=== PATIENT | male | born 1995 | race Caucasian/White ===

== ENCOUNTER 2022-04-04 21:30 | Emergency (ER) | payer SELFPAY ==
[2022-04-04] VITALS (12 sets, daily range): BP systolic 115–140; BP diastolic 71–95; PULSE 60–97; RESP 8–20; TEMP 36.7; O2SAT 95–100
--- NOTE | ~2022-04-04 | XR_ITS ---
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 RESULT: Lines, tubes, and devices: None. Lungs and pleura: Clear. Cardiomediastinal silhouette: Stable. Other: No acute osseous or upper abdominal finding. IMPRESSION: No acute cardiopulmonary process. Reviewed, dictated and finalized at location K. RIALS DEVELOPMENT ENGINEER
--- NOTE | 2022-04-04 21:37 | ECG_ITS ---
Measurements Intervals [place] Rate: 93 P: 69 OK: 153 QRS: 73 QRSD: 90 T: 46 QT: 361 QTc: 451 Interpretive Statements SINUS RHYTHM NO PREVIOUS ECG AVAILABLE FOR COMPARISON Electronically Signed On 04-05-2022 20:06:36 LEAN ENGINEER by Trisha Reyes M.D.
[2022-04-04] MEDS: NITROGLYCERIN SL 0.4 MG TABLET SUBLINGUAL ×2 (22:00→22:15)
[2022-04-04] MEDS: ASPIRIN 81 MG CHEWABLE TABLET 324 MG PO (22:01)
[2022-04-04 22:04] LABS: Basophils Absolute Auto 0.06 K/mm3 (0.00-0.10); Basophils Percent Auto 0.3 % (0.0-1.0); Eosinophils Percent Auto 0.6 % (1.0-6.0); Hematocrit 42.3 % (40.0-54.0); Hemoglobin 14.5 g/dL (14.0-18.0); Immature Granulocyte Absolute 0.07 K/mm3 (0.00-0.00); Immature Granulocyte Percent A 0.4 % (0.0-0.0); Lymphocytes Absolute Auto 2.63 K/mm3 (1.10-4.50); Lymphocytes Percent Auto 14.8 % (18.0-42.0); Mean Corpuscular HGB Conc 34.3 g/dL (32.0-36.0); Mean Corpuscular Hemoglobin 30.4 pg (27.0-31.0); Mean Corpuscular Volume 88.7 fL (78.0-102.0); Mean Platelet Volume 10.6 fl (8.7-11.0); Monocytes Absolute Auto 1.17 K/mm3 (0.10-0.90); Monocytes Percent Auto 6.6 % (2.0-11.0); Neutrophils Absolute Auto 13.8 K/mm3 (1.7-7.2); Neutrophils Percent Auto 77.3 % (50.0-70.0); Platelet Count Result 274 K/mm3 (150-420); Red Blood Count 4.77 M/mm3 (4.70-6.10); Red Cell Distribution Width 12.1 % (11.6-14.4); White Blood Count 17.8 K/mm3 (4.8-10.8)
--- NOTE | 2022-04-04 22:26 | PC.NURSE ---
When this RN attempted to start an IV the pt became very tense and began to bear down. the pt's heart rate dropped to 39 briefly and then came back up into the 70s. pt is Ox4 awake and talking. the pt denies any other complaints besides chest tightness.
[2022-04-04 22:28] LABS: Alanine Aminotransferase 30 U/L (16-63); Albumin Level 4.3 g/dL (3.4-5.0); Alkaline Phosphatase 68 U/L (46-116); Anion Gap 7 mmol/L (8-16); Aspartate Amino Transferase 17 U/L (15-37); Bilirubin,Total 1.1 mg/dL (0.00-1.00); Blood Urea Nitrogen 15 mg/dL (7-18); Carbon Dioxide 28 mmol/L (21-32); Chloride 103 mmol/L (98-108); Estimated CRCL calculation 130 ml/min; Estimated Glomerular Filt Rate > 60; Glucose 106 mg/dL (70-99); Lipase 81 U/L (73-393); NT Pro B Type Natriuretic Pept 27 pg/mL (0-125); Osmolality Calculated 286 mOsm/kg (285-295); Potassium 3.6 mmol/L (3.5-5.1); Sodium 138 mmol/L (136-145); Total Protein 7.7 g/dL (6.4-8.2); Troponin I 5.5 ng/L (0.00-60.4)
[2022-04-04 22:37] LABS: Add Urine Microscopic? NO; Appearance Urine Clear (Clear); Bilirubin Urine Negative (Negative); Blood Urine Negative (Negative); Color Urine Light Yellow (Yellow); Glucose Urine UA Negative (Negative); Ketones Urine Negative (Negative); Leukocyte Esterase Ur Negative LEU/UL (Negative); Nitrate Urine Negative (Negative); Protein Urine Negative (Negative); Urobilinogen Urine 0.2 mg/dL (0.2-1.0)
[2022-04-04 22:44] LABS: Amphetamine Screen Urine Negative (Negative); Barbiturate Screen Urine Negative (Negative); Benzodiazepines Screen Urine Negative (Negative); Cannabinoid Screen Urine Positive (Negative); Cocaine Screen Urine Negative (Negative); Methadone Screen Urine Negative (Negative); Opiate Screen Urine Negative (Negative); Phencyclidine Screen Urine Negative (Negative)
[2022-04-04] MEDS: IPRATROPIUM 0.5 MG/ALBUTEROL SULFATE 2.5 MG AMPUL.NEB 3 ML INHALATION (22:55)
[2022-04-04 23:05] LABS: Base Excess ABG 1.8 mmol/L (0-2); Oxygen Content ABG 21.1 %vol (16.0-22.0); Oxygen Saturation ABG 98.6 % (95-97); Oxyhemoglobin 97.3 % (94-100); PO2 ABG 133.6 mmHg (80-90); Total Hemoglobin 15.3 g/dL (12.0-18.0); pH ABG 7.51 (7.35-7.45)
[2022-04-04 23:07] LABS: Modified Allen's Test Pass; Site Drawn RIGHT BRACHIAL
[2022-04-04 23:08] LABS: Device OTHER DEVICE
[2022-04-05] VITALS (15 sets, daily range): BP systolic 123; BP diastolic 60; PULSE 55–75; RESP 5–21; O2SAT 95–97
[2022-04-05] MEDS: SODIUM CHLORIDE 0.9% IV 1,000 ML 999 ML IV CONT (01:25)
[2022-04-05 01:45] LABS: Troponin I 4.5 ng/L (0.00-60.4)
--- NOTE | 2022-04-05 02:50 | PC.NURSE ---
notified that lab results are back.
--- NOTE | 2022-04-05 03:38 | ED.CHESTPAIN ---
HPI - Chest Pain General Chief Complaint: Chest Pain Stated Complaint: Anxiety Time Seen by Provider: 04/04/22 21:35 Source: patient and RN notes reviewed Mode of arrival: ambulatory Limitations: no limitations History of Present Illness MD complaint: chest pain Onset (ago): hour(s) (6) Timing of current episode: constant Onset: during exertion Pain location: substernal Pain radiation: none Severity: mild Pain scale (0-10): 5 Quality: aching and dull Relieving factors: nothing Exacerbating factors: inspiration Associated symptoms: dyspnea and cough Treatment prior to arrival: none Related Data Allergies Allergy/AdvReac Type Severity Reaction Status Date / Time No Known Allergies Allergy Verified 01/22/17 21:09 Review of Systems Review of Systems: All systems reviewed & are unremarkable except as noted in HPI and below Constitutional: Constitutional: Reports no additional constitutional complaints Eyes: Eyes: Reports no additional eye complaints ENT: Reports system reviewed and no additional complaints, except as documented Cardiovascular: Cardiovascular: Reports no additional cardiovascular complaints Respiratory: Respiratory: Reports no additional respiratory complaints Gastrointestinal: Gastrointestinal: Reports no additional gastrointestinal complaints Musculoskeletal: Musculoskeletal: Reports no additional musculoskeletal complaints Integumentary/Breasts: Skin/Breast: Reports system reviewed and no additional complaints, except as docu Neurologic: Reports system reviewed and no additional complaints, except as documented Psychiatric: Psychiatric: Reports no additional psychiatric complaints Endocrine: Endocrine: Reports no additional endocrine complaints Hematologic/Lymphatic: Hematologic/Lymphatic: Reports no additional hematologic/lymphatic complaints Allergic/Immunologic: Allergic/Immunologic: Reports no additional allergic/immunologic complaints PMFSH Past Medical History Medical History Atypical chest pain Bronchitis Exam Const: General: no acute distress and well nourished Nutritional Appearance: well nourished Orientation/consciousness: patient oriented x3 Limitations: no limitations HENMT: Head: normal to inspection Ears: external ears normal, TM's normal bilaterally and EAC's normal Face/Nose/Sinus: Normal external nose present, Normal nares present, normal facial exam and sinuses nontender Face and sinus: normal facial exam and sinuses nontender Mouth: Yes Normal oral and palatal mucosa present and Yes moist mucous membranes Teeth and gingiva: dentition normal Throat: posterior oropharynx normal Eyes: Conjunctivae: conjunctivae normal Pupils: Equal, round and reactive pupils present EOM: EOMs intact bilaterally Neck: Neck: normal visual inspection, no lymphadenopathy and no meningeal signs Chest: Chest palpation & inspection: normal inspection of the chest Resp: Effort & Inspection: normal respiratory effort Auscultation: rhonchi Cardio: Rate: regular rate Rhythm: regular rhythm GI: GI Palp: Yes Soft to palpation and No Tenderness to palpation present (GI) Auscultation: normal bowel sounds : General: Yes bladder normal to palpation and Yes no CVA tenderness Back/Spine/Pelvis: Back: no CVA tenderness Skin: General skin exam: normal color Rashes: no rashes Wounds: no wounds Neuro: General: patient oriented x3, moves all extremities, no meningeal signs, no focal motor deficits and CN's II-XI intact bilaterally Cranial nerves: Yes Equal, round and reactive pupils present and Yes Nystagmus not present Speech: normal speech Gait exam (Neuro): Normal gait present Extrem: General: normal to inspection and no pedal edema Psych: Mental Status: mental status grossly normal Affect: normal affect Attitude: cooperative Course Course Emergency Course: stable, less painful Reevaluation(s) Reevaluation #1:
--- NOTE | 2022-04-09 23:33 | PC.NURSE ---
Ceftriaxone stopped 04/05/22 0130 Fluids stopped 04/05/22 0200
== END 2022-04-05 03:57 | disposition home or self-care (01) ==
PROVIDERS: Emergency Provider Emergency Medicine
DX: J40 Bronchitis, not specified as acute or chronic (principal); R07.89 Other chest pain
CPT/HCPCS: 36415; 36600; 71045; 80053; 80307; 81003; 82805; 83690; 83880; 84484; 85025; 93005; 94640; 96361; 96374; 99284; A9270; J0696; J2405; J7030

== ENCOUNTER 2022-04-14 14:44 | Emergency (ER) | payer OTHER, SELFPAY ==
--- NOTE | ~2022-04-14 | CT_ITS ---
EXAMINATION: CT abdomen pelvis w con DATE: 04/14/2022 17:39 INDICATION: abdominal pain with vomiting TECHNIQUE: Computed tomography (CT) of the abdomen and pelvis was performed with 100 mL Omnipaque-350 intravenous contrast. Automated exposure control and iterative reconstruction technique were employe d. The dose-length product was 483.11 mGy-cm. COMPARISON: 01/22/2017. FINDINGS: Lower thorax: Small hiatal hernia. Liver: Normal. Biliary/Gallbladder: Gallbladder is normal. No bile duct dilation. Pancreas: No mass or duct dilation. Spleen: Normal. Adrenals:No mass. Kidneys: No mass, stone, or hydronephrosis. GI tract: No small or large bowel dilation. Normal appendix. Mesentery/Peritoneum: No ascites, mass, or free air. Retroperitoneum: No mass. Pelvis: Pelvic organs are within normal limits. Soft Tissues: Soft tissues and body wall unremarkable. Bones: No acute osseous finding. IMPRESSION: No acute abdominopelvic process detected Reviewed, dictated and finalized at location K. AL SERVICE LIAISON
[2022-04-14 14:55] VITALS: BP 143/97; PULSE 73; RESP 18; TEMP 36.6; O2SAT 100
[2022-04-14 17:14] LABS: Basophils Absolute Auto 0.1 K/mm3 (0.0-0.1); Basophils Percent Auto 0.4 % (0.2-1.2); Eosinophils Percent Auto 0.1 % (0-4.4); Hematocrit 45.8 % (42.0-52.0); Hemoglobin 16.1 g/dL (14.0-18.0); Immature Granulocyte Absolute 0.14 K/mm3 (0.00-0.031); Immature Granulocyte Percent A 0.6 % (0-0.5); Lymphocytes Absolute Auto 1.13 K/mm3 (0.9-3.2); Lymphocytes Percent Auto 5.2 % (18.3-44.2); Mean Corpuscular HGB Conc 35.2 g/dl (32-36); Mean Corpuscular Hemoglobin 30.8 pg (26-34); Mean Corpuscular Volume 87.7 fl (80-100); Mean Platelet Volume 10.5 fl (7.4-10.4); Monocytes Absolute Auto 1.2 K/mm3 (0.1-0.6); Monocytes Percent Auto 5.5 % (2.6-8.5); Neutrophils Absolute Auto 19.2 K/mm3 (1.3-6.7); Neutrophils Percent Auto 88.2 % (45.5-73.1); Platelet Count Result 354 k/mm3 (150-375); Red Blood Count 5.22 M/mm3 (4.6-6.20); Red Cell Distribution Width 11.9 % (11.5-14.5); White Blood Count 21.8 K/mm3 (4.5-10.0)
[2022-04-14 17:23] LABS: Alanine Aminotransferase 32 U/L (6-50); Albumin Level 5.2 g/dL (3.5-5.1); Alkaline Phosphatase 84 U/L (38-126); Anion Gap 13 mmol/L (8-16); Aspartate Amino Transferase 31 U/L (17-59); Bilirubin,Total 1.5 mg/dL (0.2-1.3); Blood Urea Nitrogen 23 mg/dL (9-20); Calcium 9.8 mg/dL (8.4-10.2); Carbon Dioxide 24 mmol/L (22-30); Chloride 105 mmol/L (98-107); Estimated CRCL calculation 136 ml/min; Estimated Glomerular Filt Rate > 60; Glucose 153 mg/dL (65-110); Lipase 49 U/L (23-300); Potassium 3.8 mmol/L (3.4-5.0); Sodium 142 mmol/L (137-145)
--- NOTE | 2022-04-14 17:23 | ED.ABDPAIN ---
HPI - Abdominal Pain General Chief Complaint: Abdominal Pain <Kay Flores MD - Last Filed: 04/18/22 12:46> Stated Complaint: stomach pain <Kay Flores MD - Last Filed: 04/18/22 12:46> Time Seen by Provider: 04/14/22 16:47 <Kay Flores MD - Last Filed: 04/18/22 12:46> History of Present Illness HPI narrative: Patient is a 26-year-old male with a history of asthma presenting with abdominal pain. Patient states that he had lunch and then he developed severe abdominal pain associated with vomiting. States that this is the worst pain he has ever had. He was actually here in the hospital with his when the pain started. He denies fevers, headache, chest pain, cough, shortness of breath, diarrhea, constipation, dysuria, hematuria. <Kay Flores MD - Last Filed: 04/18/22 12:46> Related Data Allergies/Adverse Reactions: Allergies Allergy/AdvReac Type Severity Reaction Status Date / Time No Known Allergies Allergy Verified 04/16/22 11:24 <Kay Flores MD - Last Filed: 04/18/22 12:46> Review of Systems Review of Systems: All systems reviewed & are unremarkable except as noted in HPI and below <Kay Flores MD - Last Filed: 04/18/22 12:46> PMFSH Past Medical History Medical History: Medical History Atypical chest pain Bronchitis <Kay Flores MD - Last Filed: 04/18/22 12:46> Exam Narrative: GENERAL: Well-appearing, well-nourished, and in no acute distress. HEAD: Normocephalic, atraumatic. EYES: PERRLA and EOMI. ENT: Nares clear, no rhinorrhea or epistaxis. Mucous membranes moist. NECK: Supple. CHEST: Clear to auscultation. No respiratory distress. HEART: Regular rate and rhythm. No murmur heard. Normal peripheral pulses. ABDOMEN: Soft, diffusely tender to palpation, nondistended EXTREMITIES: Normal range of motion. No edema. SKIN: Warm, dry, no rash. NEURO: No focal deficits. Alert and oriented x3. PSYCH: Normal mood and affect. <Kay Flores MD - Last Filed: 04/18/22 12:46> Course Reevaluation(s) Reevaluation #1: Patient is tolerating p.o. and does feel improved. At time of signout the UA was pending. Patient did have positive ketones was treated with IV fluids. Patient is tolerating p.o. UA does show red blood cells with nitrate and leukoesterase negative. Urine culture was ordered. Patient was encouraged of close follow-up with his primary care physician. <Dallas Carey MD - Last Filed: 04/16/22 04:04> Vital Signs Vital signs: Vital Signs Temperature 97.8 F 04/14/22 14:55 Pulse Rate 73 04/14/22 14:55 Respiratory Rate 18 04/14/22 14:55 Blood Pressure 143/97 H 04/14/22 14:55 Pulse Oximetry 100 04/14/22 14:55 Temperature 97.8 F 04/14/22 14:55 Pulse Rate 94 04/14/22 22:45 Respiratory Rate 16 04/14/22 22:45 Blood Pressure 121/71 04/14/22 22:45 Pulse Oximetry 100 04/14/22 22:45 <Kay Flores MD - Last Filed: 04/18/22 12:46> Vital Signs Temperature 97.8 F 04/14/22 14:55 Pulse Rate 73 04/14/22 14:55 Respiratory Rate 18 04/14/22 14:55 Blood Pressure 143/97 H 04/14/22 14:55 Pulse Oximetry 100 04/14/22 14:55 Temperature 97.8 F 04/14/22 14:55 Pulse Rate 94 04/14/22 22:45 Respiratory Rate 16 04/14/22 22:45 Blood Pressure 121/71 04/14/22 22:45 Pulse Oximetry 100 04/14/22 22:45 <Dallas Carey MD - Last Filed: 04/16/22 04:04> MDM - Abdominal Pain MDM Narrative Medical decision making narrative: Patient is a 26-year-old male presenting with abdominal pain and vomiting. Patient is hypertensive, otherwise vitals are within normal limits. <Kay Flores MD - Last Filed: 04/18/22 12:46> Lab Data Result diagrams: 04/14/22 16:58 04/14/22 16:58 <Kay Flores MD - Last Filed: 04/18/22 12:46> Labs:
[2022-04-14] MEDS: MORPHINE SULFATE (*CRX) 4 MG/ML INJ IV PUSH (17:24)
[2022-04-14] MEDS: SODIUM CHLORIDE 0.9% IV 1,000 ML 999 ML IV CONT (17:25)
[2022-04-14] MEDS: ONDANSETRON INJ 4 MG/2 ML VIAL IV PUSH (17:25)
[2022-04-14 18:53] VITALS: BP 135/91; PULSE 61; RESP 15; O2SAT 100
[2022-04-14] MEDS: HALOPERIDOL LACTATE 5 MG/ML VIAL IM (18:53)
[2022-04-14 19:34] LABS: Add Urine Microscopic? YES; Appearance Urine Clear (Clear); Bilirubin Urine Negative (Negative); Blood Urine Negative (Negative); Color Urine Light Yellow (Yellow); Glucose Urine UA Negative (Negative); Ketones Urine 3+ mg/dL (Negative); Leukocyte Esterase Ur Negative LEU/UL (Negative); Nitrate Urine Negative (Negative); Protein Urine Negative (Negative); pH Urine 8.5 (5.0-9.0)
[2022-04-14 19:44] LABS: Bacteria Urine 1+ /hpf; Mucus Urine Rare /lpf; Squamous Epithelial Cell Urine Rare /hpf (Few)
[2022-04-14 22:40] VITALS: BP 121/71; PULSE 94; RESP 16; O2SAT 100
[2022-04-14 22:45] VITALS: BP 121/71; PULSE 94; RESP 16; O2SAT 100
== END 2022-04-14 22:45 | disposition home or self-care (01) ==
PROVIDERS: Emergency Provider Emergency Medicine
DX: R11.2 Nausea with vomiting, unspecified (principal); R10.9 Unspecified abdominal pain
CPT/HCPCS: 36415; 74177; 80053; 81001; 83690; 85025; 87086; 96361; 96372; 96374; 96375; 99284; J1630; J2270; J2405; J7030; Q9967

== ENCOUNTER 2022-04-16 11:12 | Emergency (ER) | payer OTHER, SELFPAY ==
[2022-04-16 11:15] VITALS: BP 154/103; PULSE 79; RESP 20; TEMP 36.6; O2SAT 100
--- NOTE | 2022-04-16 11:29 | ED.ABDPAIN ---
HPI - Abdominal Pain General Chief Complaint: Abdominal Pain Stated Complaint: severe stomach pain Time Seen by Provider: 04/16/22 11:14 Source: patient Mode of arrival: ambulatory Limitations: no limitations History of Present Illness HPI narrative: Patient is a 26-year-old white male seen 2 days ago at [facility] for nausea vomiting and abdominal pain Off and on for the last 3 days. Today he presents complaining of the same symptoms with pain 8/10 in severity.. Said yesterday he was better and okay and then his symptoms started again this morning. At [place] he was diagnosed with nausea and vomiting given a prescription of Zofran which she did not fill and had a CT there that was normal. Said his delivered baby boy April 13 and that is why he did go and get his prescription filled because she had not been discharge from the hospital yet. She still in the hospital now. He did go back to [place] because it takes too long it takes 3 hours. patient stated year ago he had similar symptoms and they diagnosed him as having colitis. Denies any problems voiding he had a normal bowel movement this morning. He said he has thrown up green liquid this morning. Last ate yesterday. He says his pain is all over his belly but hurts no where else on his body. Denies any fever, cough, shortness of breath, melena, bleeding or bruising, or other symptoms. MD elicited complaint: abdominal pain Pertinent past history: constipation, diverticulitis, gastritis, gastrointestinal bleeding, kidney stones and myocardial infarction Pain Consistency: constant Location: diffuse Severity: severe Quality: stabbing Exacerbating factors: nothing Relieving factors: nothing Associated symptoms: nausea and vomiting Related Data Allergies Allergy/AdvReac Type Severity Reaction Status Date / Time No Known Allergies Allergy Verified 04/16/22 11:24 Review of Systems Review of Systems: All systems reviewed & are unremarkable except as noted in HPI and below Constitutional: Constitutional: Denies chills, Denies fatigue, Denies fever(s) and Denies weakness Eyes: Eyes: Reports no additional eye complaints ENT: Reports system reviewed and no additional complaints, except as documented Cardiovascular: Cardiovascular: Denies chest pain Respiratory: Respiratory: Denies chest congestion, Denies cough and Denies dyspnea Gastrointestinal: Gastrointestinal: Reports as per HPI, Reports no additional gastrointestinal complaints, Denies bloating, Denies constipation, Denies heartburn, Denies diarrhea, Reports nausea and Reports vomiting Genitourinary: Genitourinary: Reports no additional male genitourinary complaints, Denies dysuria, Denies testicular pain and Denies urinary frequency Musculoskeletal: Musculoskeletal: Reports no additional musculoskeletal complaints, Denies back pain, Denies myalgias and Denies muscle cramps Integumentary/Breasts: Skin/Breast: Reports system reviewed and no additional complaints, except as docu and Denies rash Neurologic: Reports system reviewed and no additional complaints, except as documented Psychiatric: Psychiatric: Reports no additional psychiatric complaints Endocrine: Endocrine: Reports no additional endocrine complaints Hematologic/Lymphatic: Hematologic/Lymphatic: Reports no additional hematologic/lymphatic complaints Allergic/Immunologic: Allergic/Immunologic: Reports no additional allergic/immunologic complaints PMFSH Past Medical History Medical History Atypical chest pain Bronchitis Comments Currently in the hospital just had a baby April 13 a little boy at [facility] which is where the patient went to the emergency department 2 days ago. Exam Const: General: healthy appearing, alert and ill appearing ( Moaning thin tall white male spitting up spit an emesis container.) Nutritional Appearance: wel
[2022-04-16] MEDS: SODIUM CHLORIDE 0.9% IV 1,000 ML 999 ML IV CONT ×2 (11:49→13:03)
[2022-04-16] MEDS: PANTOPRAZOLE SODIUM IV 40 MG VIAL 80 MG IV PUSH (11:51)
[2022-04-16] MEDS: ONDANSETRON INJ 4 MG/2 ML VIAL IV PUSH (11:52)
[2022-04-16] MEDS: KETOROLAC 30 MG/ML VIAL (*BKC) IV PUSH (11:53)
[2022-04-16 11:59] LABS: Basophils Absolute Auto 0.05 K/mm3 (0.00-0.10); Basophils Percent Auto 0.4 % (0.0-1.0); Eosinophils Absolute Auto 0.06 K/mm3 (0.02-0.50); Eosinophils Percent Auto 0.5 % (1.0-6.0); Hemoglobin 15.4 g/dL (14.0-18.0); Immature Granulocyte Absolute 0.04 K/mm3 (0.00-0.00); Immature Granulocyte Percent A 0.3 % (0.0-0.0); Lymphocytes Absolute Auto 0.76 K/mm3 (1.10-4.50); Mean Corpuscular Hemoglobin 30.8 pg (27.0-31.0); Mean Platelet Volume 10.3 fl (8.7-11.0); Monocytes Absolute Auto 0.47 K/mm3 (0.10-0.90); Monocytes Percent Auto 3.7 % (2.0-11.0); Neutrophils Absolute Auto 11.3 K/mm3 (1.7-7.2); Neutrophils Percent Auto 89.1 % (50.0-70.0); Platelet Count Result 291 K/mm3 (150-420); Red Cell Distribution Width 11.8 % (11.6-14.4); White Blood Count 12.7 K/mm3 (4.8-10.8)
[2022-04-16 12:15] LABS: Alanine Aminotransferase 30 U/L (16-63); Albumin Level 4.9 g/dL (3.4-5.0); Alkaline Phosphatase 71 U/L (46-116); Anion Gap 12 mmol/L (8-16); Aspartate Amino Transferase 21 U/L (15-37); Bilirubin,Total 1.3 mg/dL (0.00-1.00); Blood Urea Nitrogen 16 mg/dL (7-18); Calcium 9.5 mg/dL (8.5-10.1); Carbon Dioxide 27 mmol/L (21-32); Chloride 101 mmol/L (98-108); Estimated CRCL calculation 94 ml/min; Estimated Glomerular Filt Rate > 60; Glucose 131 mg/dL (70-99); Lipase 20 U/L (16-77); Osmolality Calculated 293 mOsm/kg (285-295); Potassium 3.4 mmol/L (3.5-5.1); Sodium 140 mmol/L (136-145); Total Protein 8.4 g/dL (6.4-8.2)
[2022-04-16 12:33] LABS: Lactic Acid Reflex 1.9 mmol/L (0.4-2.0)
[2022-04-16 12:52] VITALS: BP 131/84; PULSE 70; RESP 16; TEMP 36.6; O2SAT 99
[2022-04-16] MEDS: POTASSIUM BICARBONATE 25 MEQ TABEF 50 MEQ PO (13:04)
[2022-04-16 13:41] LABS: Add Urine Microscopic? YES; Appearance Urine Clear (Clear); Bilirubin Urine Negative (Negative); Blood Urine Trace-Intact (Negative); Color Urine Yellow (Yellow); Glucose Urine UA Negative (Negative); Ketones Urine 3+ (Negative); Leukocyte Esterase Ur Negative LEU/UL (Negative); Nitrate Urine Negative (Negative); Protein Urine Negative (Negative); Specific Grav Ur 1.025 (1.010-1.020)
[2022-04-16 13:45] LABS: Bacteria Urine None seen /hpf; RBC Urine None seen /hpf (0-2); WBC Urine None seen /hpf (0-3)
[2022-04-16 13:53] VITALS: BP 103/70; PULSE 88; TEMP 36.9; O2SAT 100
--- NOTE | 2022-04-16 14:17 | PC.NURSE ---
hard copy prescriptions provided to pt. pt verbalized understanding of discharge instruction. signature page left with pt.
== END 2022-04-16 14:17 | disposition home or self-care (01) ==
PROVIDERS: Emergency Provider Emergency Medicine
DX: R11.2 Nausea with vomiting, unspecified (principal); R10.9 Unspecified abdominal pain
CPT/HCPCS: 36415; 80053; 81001; 83605; 83690; 85025; 96361; 96374; 96375; 99284; A9270; C9113; J1885; J2405; J7030

== ENCOUNTER 2024-05-11 00:47 | Emergency (ER) | payer SELFPAY ==
[2024-05-11 00:47] VITALS: BP 166/99; PULSE 77; RESP 19; TEMP 36.6; O2SAT 100
[2024-05-11] MEDS: ONDANSETRON INJ 4 MG/2 ML VIAL IV PUSH (01:07)
[2024-05-11] MEDS: SODIUM CHLORIDE 0.9% IV 1,000 ML 999 ML IV CONT ×2 (01:07→01:13)
[2024-05-11 01:12] LABS: Basophils Percent Auto 0.2 % (0.2-1.2); Eosinophils Percent Auto 0.1 % (0-4.4); Hemoglobin 16.8 g/dL (14.0-18.0); Immature Granulocyte Absolute 0.07 K/mm3 (0.00-0.031); Immature Granulocyte Percent A 0.4 % (0-0.5); Lymphocytes Absolute Auto 0.92 K/mm3 (0.9-3.2); Mean Corpuscular Hemoglobin 30.5 pg (26-34); Mean Corpuscular Volume 87.1 fl (80-100); Mean Platelet Volume 10.4 fl (7.4-10.4); Monocytes Absolute Auto 0.6 K/mm3 (0.1-0.6); Monocytes Percent Auto 3.5 % (2.6-8.5); Neutrophils Absolute Auto 16.6 K/mm3 (1.3-6.7); Neutrophils Percent Auto 90.8 % (45.5-73.1); Platelet Count Result 356 k/mm3 (150-375); Red Blood Count 5.51 M/mm3 (4.6-6.20); Red Cell Distribution Width 12.4 % (11.5-14.5); White Blood Count 18.3 K/mm3 (4.5-10.0)
--- NOTE | 2024-05-11 01:29 | ED.GENADULT ---
HPI - General Adult General Chief complaint: Nausea/Vomiting/Diarrhea Stated complaint: n/v/d Time Seen by Provider: 05/11/24 00:48 History of Present Illness HPI narrative: Patient is a 28-year-old male who presents to the emergency department this evening complaining of nausea, vomiting and diarrhea which started at 9:00 a.m. this morning. Patient states that his symptoms continued to persist and he is now unable to keep any food or drinks down. Denies any sharp abdominal pain. Patient also denies any additional symptoms or concerns. No sick contacts at home. No fevers or chills. Related Data Allergies Allergy/AdvReac Type Severity Reaction Status Date / Time No Known Allergies Allergy Verified 05/11/24 00:47 Review of Systems Review of Systems: All systems are reviewed and are negative unless stated otherwise in the HPI. [facility] Past Medical History Medical History Atypical chest pain Bronchitis Exam Narrative: General: Alert, awake, afebrile, in moderate distress secondary to nausea, actively vomiting. HEENT: PERRL, no rhinorrhea, no post nasal drip, oropharynx clear. Neck: Trachea midline, no JVD, no lymphadenopathy. Cardiovascular: Regular rate and rhythm, no murmurs, rubs or gallops, no peripheral edema. Respiratory: Clear to auscultation bilaterally, no tachypnea, no wheezing, no rhonchi, no rubs, no respiratory distress. Abdomen: Soft, nontender, nondistended, no rebound, no guarding, no peritoneal signs. Musculoskeletal: No joint swelling or deformity, normal muscle tone. Skin: No rashes or petechia, no signs of infection. Psychiatric: Alert and oriented, normal behavior and judgment for situation. Neurological: Alert and oriented to person, place, and time. Follows all commands. No focal deficits, speech is clear and fluent. Course Vital Signs Vital signs: Vital Signs Temperature 97.8 F 05/11/24 00:47 Pulse Rate 77 05/11/24 00:47 Respiratory Rate 19 05/11/24 00:47 Blood Pressure 166/99 H 05/11/24 00:47 Pulse Oximetry 100 05/11/24 00:47 Oxygen Delivery Room Air 05/11/24 00:47 Temperature 97.8 F 05/11/24 00:47 Pulse Rate 77 05/11/24 00:47 Respiratory Rate 19 05/11/24 00:47 Blood Pressure 166/99 H 05/11/24 00:47 Pulse Oximetry 100 05/11/24 00:47 Oxygen Delivery Room Air 05/11/24 00:47 Medical Decision Making MDM Narrative Medical decision making narrative: The patient was evaluated by myself in the emergency department. History is obtained from patient who is an independent historian and physical exam was performed. External medical records were reviewed at this time. IV was established and pertinent tests were ordered. Patient was administered 2 L IV fluid bolus with normal saline and 4 mg of IV Zofran for nausea/vomiting. On repeat assessment the patient, patient still complains of nausea despite the Zofran at this time he was administered 10 mg of IV Reglan and 50 mg of IV Benadryl with resolution of his symptoms. Laboratory results obtained revealing a leukocytosis of 18.3 and magnesium of 1.4, otherwise unremarkable. At this time patient was administered 1 g of IV magnesium. Differential diagnosis considerations include acute viral syndrome, gastroenteritis, dehydration, electrolyte derangements. Comorbidities impacting this visit include none. I have evaluated and discussed social determinants of health with the patient that could potentially impact subsequent diagnosis and treatment plans. On repeat assessment of the patient, reevaluation revealed that the patient is doing well and is in no acute distress. Patient symptoms have improved since he arrived to our emergency department. Repeat vital signs were all reviewed and noted to be stable. Differential diagnosis and treatment plan were discussed with the patient at bedside. Patient agrees with discussion and after shared medical decision making agrees with discharge. All questions were answered to the patient's satisfaction. Patient will follow up with his PCP in 3-5 days. A script for Zofran was sent to patient's pharmacy to use as needed for nausea/vomiting. Patient was provided with strict return precautions and instructed to return to the emergency department if any new or worsening symptoms develop. The patient was discharged in stable condition. Vital Signs Vital Signs: Vital Signs Temperature 97.8 F 05/11/24 00:47 Pulse Rate 77 05/11/24 00:47 Respiratory Rate 19 05/11/24 00:47 Blood Pressure 166/99 H 05/11/24 00:47 Pulse Oximetry 100 05/11/24 00:47 Oxygen Delivery Room Air 05/11/24 00:47 Temperature 97.8 F 05/11/24 00:47 Pulse Rate 77 05/11/24 00:47 Respiratory Rate 19 05/11/24 00:47 Blood Pressure 166/99 H 05/11/24 00:47 Pulse Oximetry 100 05/11/24 00:47 Oxygen Delivery Room Air 05/11/24 00:47 Lab Data 05/11/24 01:06 05/11/24 01:06 Labs: Lab Results 05/11/24 05/11/24 Range/Units 00:58 01:06 WBC 18.3 H (4.5-10.0) K/mm3 RBC 5.51 (4.6-6.20) M/mm3 Hgb 16.8 (14.0-18.0) g/dL Hct 48.0 (42.0-52.0) % MCV 87.1 (80-100) fl MCH 30.5 (26-34) pg MCHC 35.0 (32-36) g/dl RDW 12.4 (11.5-14.5) % Plt Count 356 (150-375) k/mm3 MPV 10.4 (7.4-10.4) fl Immature Gran % (Auto) 0.4 (0-0.5) % Neut % (Auto) 90.8 H (45.5-73.1) % Lymph % (Auto) 5.0 L (18.3-44.2) % [place] % (Auto) 3.5 (2.6-8.5) % Eos % (Auto) 0.1 (0-4.4) % Baso % (Auto) 0.2 (0.2-1.2) % Lymph # (Auto) 0.92 (0.9-3.2) K/mm3 [place] # (Auto) 0.6 (0.1-0.6) K/mm3 Eos # (Auto) 0.0 (0-0.3) K/mm3 Baso # (Auto) 0.0 (0.0-0.1) K/mm3 Abs Immat Gran (auto) 0.07 H (0.00-0.031) K/mm3 Absolute Neuts (auto) 16.6 H (1.3-6.7) K/mm3 Absolute Nucleated RBC 0.000 (0.0-0.012) K/mm3 Nucleated RBC % 0.0 (0.0-0.2) % Sodium 142 (137-145) mmol/L Potassium 3.4 (3.4-5.0) mmol/L Chloride 101 (98-107) mmol/L Carbon Dioxide 20 L (22-30) mmol/L Anion Gap 21 H (4-12) mmol/L BUN 16 (9-20) mg/dL Creatinine 0.85 (0.7-1.3) mg/dL Estim Creat Clear Calc 141 ml/min Estimated GFR > 60 (59 - ) Glucose 156 H (65-110) mg/dL Calcium 9.6 (8.4-10.2) mg/dL Magnesium 1.4 L (1.6-2.3) mg/dL Total Bilirubin 1.3 (0.2-1.3) mg/dL AST 42 (17-59) U/L ALT 47 (6-50) U/L Alkaline Phosphatase 90 (38-126) U/L Total Protein 9.0 H (6.3-8.2) g/dL Albumin 5.1 (3.5-5.1) g/dL Influenza A (RT-PCR) Negative (Negative) Influenza B (RT-PCR) Negative (Negative) SARS-CoV-2 RNA (RT-PCR) Negative (Negative) Discharge Plan Discharge Clinical Impression: Gastroenteritis, Hypomagnesemia Patient Disposition: Home, Self-Care Condition: Improved Instructions: Antibiotic Form, Gastroenteritis (ED) Additional Instructions: Please follow-up with your family doctor within the next 3-5 days. Return to the emergency department if any new or worsening symptoms develop. Use the prescribed Zofran as needed for nausea/vomiting. Patient Language: Bhutanese Prescriptions: New ondansetron 4 mg tablet,disintegrating 4 mg PO Q8H PRN (Reason: nausea and vomiting) Qty: 10 0RF No Action ketorolac 10 mg tablet 10 mg PO QID PRN (Reason: pain) 5 Days Qty: 14 0RF ondansetron 4 mg tablet,disintegrating 4 mg PO Q4H PRN (Reason: nausea and vomiting) Qty: 14 0RF Follow-up/Referrals: Cordell Whitt MD [Physician] - 3 Days UNKNOWN,DOCTOR [Primary Care Provider] - Time of Disposition: 03:50
[2024-05-11 01:31] LABS: Albumin Level 5.1 g/dL (3.5-5.1); Alkaline Phosphatase 90 U/L (38-126); Anion Gap 21 mmol/L (4-12); Aspartate Amino Transferase 42 U/L (17-59); Bilirubin,Total 1.3 mg/dL (0.2-1.3); Blood Urea Nitrogen 16 mg/dL (9-20); Calcium 9.6 mg/dL (8.4-10.2); Carbon Dioxide 20 mmol/L (22-30); Chloride 101 mmol/L (98-107); Estimated CRCL calculation 141 ml/min; Estimated Glomerular Filt Rate > 60; Glucose 156 mg/dL (65-110); Magnesium 1.4 mg/dL (1.6-2.3); Potassium 3.4 mmol/L (3.4-5.0); Sodium 142 mmol/L (137-145)
[2024-05-11 01:39] LABS: Alanine Aminotransferase 47 U/L (6-50)
[2024-05-11 01:39] LABS: Influenza A QL RT-PCR Negative (Negative); Influenza B QL RT-PCR Negative (Negative); SARS-CoV-2 RNA PCR Negative (Negative)
[2024-05-11] MEDS: METOCLOPRAMIDE HCL INJ 10 MG/2 ML VIAL IV PUSH (01:45)
[2024-05-11] MEDS: diphenhydrAMINE HCl INJ 50 MG/ML VIAL IV PUSH (01:45)
[2024-05-11] MEDS: MAGNESIUM SULF 1 GM/D5W 100 ML 1 GM/100 ML BAG IVPB (01:46)
[2024-05-11 04:24] VITALS: BP 114/71; PULSE 71; RESP 14; O2SAT 100
== END 2024-05-11 04:28 | disposition home or self-care (01) ==
PROVIDERS: Emergency Provider Emergency Medicine
DX: K52.9 Noninfective gastroenteritis and colitis, unspecified (principal); E83.42 Hypomagnesemia; Z20.822 Contact with and (suspected) exposure to COVID-19
CPT/HCPCS: 36415; 80053; 83735; 85025; 87636; 96361; 96365; 96375; 99284; J1200; J2405; J2765; J3475; J7030

== ENCOUNTER 2024-05-12 11:08 | Inpatient (IN) | payer SELFPAY ==
[2024-05-12] VITALS (9 sets, daily range): BP systolic 106–153; BP diastolic 58–94; PULSE 65–105; RESP 14–22; TEMP 36.1–36.6; O2SAT 95–100; BMI 26.5
--- NOTE | ~2024-05-12 | CT_ITS ---
EXAMINATION: CT abdomen pelvis w con DATE: 05/12/2024 12:57 INDICATION: Abdominal wall pain. Nausea and vomiting. TECHNIQUE: Computed tomography (CT) of the abdomen and pelvis was performed with 100 mL Omnipaque-350 intravenous contrast. Automated exposure control and iterative reconstruction technique were employe d. The dose-length product was 705.82 mGy-cm. COMPARISON: 04/14/2022 FINDINGS: Mild dependent atelectasis in bilateral lower lobes. Heart size is normal. No pericardial or pleural effusion. Small sliding-type hiatal hernia with wall thickening the distal esophagus which could be s een with esophagitis.. Unchanged focal hepatic steatosis along the ligamentum teres. Gallbladder, spl een, pancreas, bilateral adrenal glands and right kidney are normal. Subcentimeter low-attenuation cy st at the upper pole the left kidney. Bowels including the appendix are normal. Bladder and prostate are unremarkable. No free intraperitoneal gas or fluid. No pathologically enlarged abdominal or pelvi c lymphadenopathy. Bones are unremarkable. IMPRESSION: 1. No acute intra-abdominal/pelvic process. 2. Small sliding-type hiatal hernia with wall thickening in the distal esophagus which could be seen with esophagitis Reviewed, dictated and finalized at location [facility] IMPRESSION: 1. No acute intra-abdominal/pelvic process. 2. Small sliding-type hiatal hernia with wall thickening in the distal esophagu s which could be seen with esophagitis
[2024-05-12 12:03] LABS: Basophils Absolute Auto 0.1 K/mm3 (0.0-0.1); Basophils Percent Auto 0.5 % (0.2-1.2); Eosinophils Absolute Auto 0.6 K/mm3 (0-0.3); Eosinophils Percent Auto 3.7 % (0-4.4); Hematocrit 48.7 % (42.0-52.0); Hemoglobin 16.8 g/dL (14.0-18.0); Immature Granulocyte Absolute 0.07 K/mm3 (0.00-0.031); Immature Granulocyte Percent A 0.5 % (0-0.5); Lymphocytes Absolute Auto 2.17 K/mm3 (0.9-3.2); Mean Corpuscular HGB Conc 34.5 g/dl (32-36); Mean Corpuscular Hemoglobin 30.3 pg (26-34); Mean Corpuscular Volume 87.9 fl (80-100); Mean Platelet Volume 10.7 fl (7.4-10.4); Monocytes Absolute Auto 1.2 K/mm3 (0.1-0.6); Monocytes Percent Auto 7.6 % (2.6-8.5); Neutrophils Absolute Auto 11.4 K/mm3 (1.3-6.7); Neutrophils Percent Auto 73.7 % (45.5-73.1); Platelet Count Result 342 k/mm3 (150-375); Red Blood Count 5.54 M/mm3 (4.6-6.20); Red Cell Distribution Width 12.6 % (11.5-14.5); White Blood Count 15.5 K/mm3 (4.5-10.0)
[2024-05-12 12:10] LABS: Albumin Level 4.8 g/dL (3.5-5.1); Alkaline Phosphatase 77 U/L (38-126); Anion Gap 17 mmol/L (4-12); Aspartate Amino Transferase 45 U/L (17-59); Bilirubin,Total 2.3 mg/dL (0.2-1.3); Blood Urea Nitrogen 15 mg/dL (9-20); Calcium 9.9 mg/dL (8.4-10.2); Carbon Dioxide 22 mmol/L (22-30); Chloride 101 mmol/L (98-107); Estimated CRCL calculation 137 ml/min; Estimated Glomerular Filt Rate > 60; Glucose 130 mg/dL (65-110); Lipase 83 U/L (23-300); Potassium 3.1 mmol/L (3.4-5.0); Sodium 140 mmol/L (137-145)
[2024-05-12 12:19] LABS: Alanine Aminotransferase 55 U/L (6-50)
[2024-05-12] MEDS: SODIUM CHLORIDE 0.9% IV 1,000 ML 999 ML IV CONT (12:25)
[2024-05-12] MEDS: MORPHINE SULFATE (*CRX) 4 MG/ML INJ IV PUSH (12:26)
[2024-05-12] MEDS: diphenhydrAMINE HCl INJ 50 MG/ML VIAL IV PUSH (12:26)
[2024-05-12] MEDS: PROCHLORPERAZINE EDISYLATE 10 MG/2 ML VIAL IV PUSH (12:26)
--- NOTE | 2024-05-12 12:30 | PC.NURSE ---
Pt. states he is unable to provide a urine sample at this time. Pt. given a urinal and verbalizes that he will press his call light when he has urinated.
--- NOTE | 2024-05-12 13:06 | ED_ITS ---
HPI - General Adult General Chief complaint: Nausea/Vomiting/Diarrhea Stated complaint: nausea/vomitting Time Seen by Provider: 05/12/24 11:37 History of Present Illness HPI narrative: Patient 28-year-old gentleman presents emergency department chief complaint of nausea vomiting. Patient reports that they have seen her 2 days ago and reports he has continued to have nausea vomiting and reports unable keep anything down. The patient reports he has pain in his abdomen that started after the vomiting. The patient was seen in the emergency department received IV fluids and antiemetics and reports that they are not stopping his symptoms. Related Data Allergies Allergy/AdvReac Type Severity Reaction Status Date / Time No Known Allergies Allergy Verified 05/12/24 11:24 Review of Systems 2 Review of Systems: A 10 system review of systems was completed on the patient and is negative except for what is stated in the HPI. Nursing and ancillary documentation was reviewed. PMFSH Past Medical History Medical History Atypical chest pain Bronchitis Exam 2 Narrative: GENERAL: Well-appearing, well-nourished, and in moderate acute distress from vomiting. HEAD: Normocephalic, atraumatic. EYES: PERRLA and EOMI. ENT: Nares clear, no rhinorrhea or epistaxis. Mucous membranes moist. NECK: Supple. CHEST: Clear to auscultation. No respiratory distress. HEART: Regular rate and rhythm. No murmur heard. Normal peripheral pulses. ABDOMEN: Soft, diffuse mild tenderness, nondistended, normal active bowel sounds. EXTREMITIES: Normal range of motion. No edema. SKIN: Warm, dry, no rash. NEURO: No focal deficits. Alert and oriented x3. PSYCH: Normal mood and affect. Course Vital Signs Vital signs: Vital Signs Temperature 36.6 C 05/12/24 11:20 Pulse Rate 89 05/12/24 11:20 Respiratory Rate 20 05/12/24 11:20 Blood Pressure 150/90 H 05/12/24 11:20 Pulse Oximetry 98 05/12/24 11:20 Oxygen Delivery Room Air 05/12/24 11:20 Temperature 36.6 C 05/12/24 11:20 Pulse Rate 93 05/12/24 15:45 Respiratory Rate 14 05/12/24 15:45 Blood Pressure 122/83 05/12/24 15:45 Pulse Oximetry 95 05/12/24 15:45 Oxygen Delivery Room Air 05/12/24 11:20 Medical Decision Making MDM Narrative Medical decision making narrative: Differential diagnosis includes gastroenteritis, nausea vomiting, Laboratory studies were obtained on the patient showed a CBC with white count 15.5 electrolytes showed a potassium of 3.1 glucose 130 bilirubin was 2.3 urinalysis showed a specific gravity greater than 1.045 CT scan of the abdomen pelvis showed 1. No acute intra-abdominal/pelvic process. 2. Small sliding-type hiatal hernia with wall thickening in the distal esophagus which could be seen with esophagitis Vital Signs Vital Signs: Vital Signs Temperature 36.6 C 05/12/24 11:20 Pulse Rate 89 05/12/24 11:20 Respiratory Rate 20 05/12/24 11:20 Blood Pressure 150/90 H 05/12/24 11:20 Pulse Oximetry 98 05/12/24 11:20 Oxygen Delivery Room Air 05/12/24 11:20 Temperature 36.6 C 05/12/24 11:20 Pulse Rate 93 05/12/24 15:45 Respiratory Rate 14 05/12/24 15:45 Blood Pressure 122/83 05/12/24 15:45 Pulse Oximetry 95 05/12/24 15:45 Oxygen Delivery Room Air 05/12/24 11:20 Lab Data 05/12/24 11:43 05/12/24 11:43 Labs: Lab Results 05/12/24 05/12/24 Range/Units 11:43 14:22 WBC 15.5 H (4.5-10.0) K/mm3 RBC 5.54 (4.6-6.20) M/mm3 Hgb 16.8 (14.0-18.0) g/dL Hct 48.7 (42.0-52.0) % MCV 87.9 (80-100) fl MCH 30.3 (26-34) pg MCHC 34.5 (32-36) g/dl RDW 12.6 (11.5-14.5) % Plt Count 342 (150-375) k/mm3 MPV 10.7 H (7.4-10.4) fl Immature Gran % (Auto) 0.5 (0-0.5) % Neut % (Auto) 73.7 H (45.5-73.1) % Lymph % (Auto) 14.0 L (18.3-44.2) % [place] % (Auto) 7.6 (2.6-8.5) % Eos % (Auto) 3.7 (0-4.4) % Baso % (Auto) 0.5 (0.2-1.2) % Lymph # (Auto) 2.17 (0.9-3.2) K/mm3 [place] # (Auto) 1.2 H (0.1-0.6) K/mm3 Eos # (Auto) 0.6 H (0-0.3) K/mm3 Baso # (Auto) 0.1 (0.0-0.1) K/mm3 Abs Immat Gran (auto) 0.07 H (0.00-0.031) K/mm3 Absolute Neuts (auto) 11.4 H (1.3-6.7) K/mm3 Absolute Nucleated RBC 0.000 (0.0-0.012) K/mm3 Nucleated RBC % 0.0 (0.0-0.2) % Sodium 140 (137-145) mmol/L Potassium 3.1 L (3.4-5.0) mmol/L Chloride 101 (98-107) mmol/L Carbon Dioxide 22 (22-30) mmol/L Anion Gap 17 H (4-12) mmol/L BUN 15 (9-20) mg/dL Creatinine 0.88 (0.7-1.3) mg/dL Estim Creat Clear Calc 137 ml/min Estimated GFR > 60 (59 - ) Glucose 130 H (65-110) mg/dL Calcium 9.9 (8.4-10.2) mg/dL Total Bilirubin 2.3 H (0.2-1.3) mg/dL AST 45 (17-59) U/L ALT 55 H (6-50) U/L Alkaline Phosphatase 77 (38-126) U/L Total Protein 8.0 (6.3-8.2) g/dL Albumin 4.8 (3.5-5.1) g/dL Lipase 83 (23-300) U/L Urine Color Yellow (Yellow) Urine Appearance Clear (Clear) Urine pH 8.0 (5.0-9.0) Ur Specific [place] > 1.045 H (1.001-1.035) Urine Protein Negative (Negative) mg/dL Urine Glucose (UA) Negative (Negative) mg/dL Urine Ketones 1+ H (Negative) mg/dL Ur Blood (Man) Negative (Negative) Urine Nitrate Negative (Negative) Urine Bilirubin Negative (Negative) Urine Urobilinogen 1.0 (<2.0) mg/dL Leukocyte Esterase Rfl Negative (Negative) YASMINE/UL Discharge Plan Discharge Clinical Impression: Intractable nausea and vomiting, Abdominal pain Patient Disposition: Still a Patient Condition: Stable Patient Language: Italian Prescriptions: No Action ketorolac 10 mg tablet 10 mg PO QID PRN (Reason: pain) 5 Days Qty: 14 0RF ondansetron 4 mg tablet,disintegrating 4 mg PO Q4H PRN (Reason: nausea and vomiting) Qty: 14 0RF ondansetron 4 mg tablet,disintegrating 4 mg PO Q8H PRN (Reason: nausea and vomiting) Qty: 10 0RF Follow-up/Referrals: UNKNOWN,DOCTOR [Primary Care Provider] - Time of Disposition: 15:33
[2024-05-12] MEDS: KCL 20 MEQ/SW 100 ML 100 ML 50 MEQ IVPB (13:14)
[2024-05-12] MEDS: SODIUM CHLORIDE 0.9% IV 500 ML 50 ML (13:18)
--- NOTE | 2024-05-12 13:18 | PC.NURSE ---
Normal saline infusing concurrently with IV potassium to reduce burning sensation.
[2024-05-12 14:40] LABS: Add Urine Microscopic? NO; Appearance Urine Clear (Clear); Bilirubin Urine Negative (Negative); Blood Urine Negative (Negative); Color Urine Yellow (Yellow); Glucose Urine UA Negative (Negative); Ketones Urine 1+ mg/dL (Negative); Leukocyte Esterase Ur Negative LEU/UL (Negative); Nitrate Urine Negative (Negative); Protein Urine Negative (Negative); Specific Grav Ur > 1.045 (1.001-1.035)
[2024-05-12] MEDS: HALOPERIDOL LACTATE 5 MG/ML VIAL IV PUSH (15:45)
--- NOTE | 2024-05-12 17:04 | PC.NURSE ---
Report attempted. RN to call this RN back in 5 minutes.
--- NOTE | 2024-05-12 17:35 | ADMGEN ---
This patient, Stevie Polanco, was admitted to [facility] Surg Room 321-01. Patient/family oriented to hospital policies and general routines including ID bracelet, bed and alarms, visiting hours, pain management, procedures, bathroom and other care routines, personal items, smoking policy, room service/diet, and visiting hours. Information on how to activate the Rapid Response Team has been discussed. Patient/Family are encouraged to report perceived risks to care and to ask questions if they do not understand what they are told or what they should do.
--- NOTE | 2024-05-12 17:45 | PM.IMHP ---
H&P: HPI History of Present Illness Date/Time: 05/12/24 17:45 Chief Complaint: Nausea and Vomiting Narrative: 28 y/o M presents here with nausea and vomiting with PMH of bronchitis. The patient presents here from home for further evaluation of nausea and vomiting. The patient reports onset approximately 2 days ago. He was initially seen on 05/11/2024 for same complaints. At that time he also reports loose stool. Estimates he has had 1 BM in the last 24 hours. He currently denies accompanying abdominal pain, fever, chills, or body aches. He has a history of a similar presentation on 05/15/2021 and 05/17/2021. CT of the abdomen/pelvis done in 2021 showed no acute process. CT of the abdomen/pelvis was repeated today which showed a small sliding-type hiatal hernia with wall thickening in the distal esophagus. He denies use of a PPI at home. The patient does have a marijuana use history, last used approximately 2 weeks ago. Denies any sick contacts or sick family members in same household. Last p.o. intake he was able to tolerate was 3 days ago, has been unable to tolerate water. Initial VS at presentation: 97.8? F, HR 89, RR 20, 150/90, and 98% on RA. ED workup showed: WBC 15.5, hemoglobin 16.8, potassium 3.1, creatinine 0.88 and GFR >60, glucose 130, lipase 83, UA showed high specific gravity 1+ ketones. Review of Systems Review of Systems: All systems reviewed & are unremarkable except as noted in HPI and below PMFSH Past Medical History Medical History Allergic rhinitis, cause unspecified Colitis Bronchitis Family History Family History Mother Cancer Father Liver failure Social History Social History Smoking status: Never smoker Alcohol intake: former Do You Feel Safe in your Home?: Yes Lack of Transportation: No Lack of Food: Never True Current Housing: I Have Housing Concerned About Future Housing: No Difficulty Paying Gas/Electric Bills: No Difficulty Paying for Meds: No Currently Unemployed: No Education: High School Diploma/GED Difficulty w/ Childcare or Family Care: No Spiritual care concerns: No Meds Home Medications and Allergies Home Medications ?Medication ?Instructions ?Recorded ?Confirmed ?Type No Home Medications 05/12/24 05/12/24 History Allergies Allergy/AdvReac Type Severity Reaction Status Date / Time No Known Allergies Allergy Verified 05/12/24 11:24 Vital Signs Vital Signs - 24 hr 05/12/24 11:20 05/12/24 12:31 05/12/24 15:45 Temperature 97.8 F Pulse Rate 89 100 93 Respiratory Rate 20 22 H 14 Blood Pressure 150/90 H 153/94 H 122/83 Pulse Oximetry 98 100 95 Oxygen Delivery Room Air 05/12/24 16:10 05/12/24 16:12 05/12/24 16:15 Temperature Pulse Rate 71 78 105 H Respiratory Rate Blood Pressure 110/58 L 114/65 106/61 Pulse Oximetry Oxygen Delivery 05/12/24 17:37 Temperature 96.9 F L Pulse Rate 65 Respiratory Rate 16 Blood Pressure 134/78 Pulse Oximetry 98 Oxygen Delivery Exam Const: General: comfortable and no acute distress Other: , male, nontoxic appearance HENMT: Face/Nose/Sinus: Normal nares present Mouth: Yes moist mucous membranes Eyes: General: appearance normal, both eyes and all related structures Sclera: sclerae normal Pupils: Equal, round and reactive pupils present EOM: EOMs intact bilaterally Resp: Effort & Inspection: normal respiratory effort Auscultation: clear to auscultation bilaterally Cardio: Rate: regular rate Rhythm: regular rhythm Other: S1-S2 present without murmur, rub, ectopy GI: Other: Abdomen soft, nondistended. Normoactive bowel sounds in all quadrants. Mild tenderness proximal to the umbilicus and midline. Skin: General skin exam: normal color and no rashes or lesions noted Wounds: no wounds Neuro: Speech: normal speech Motor exam (neuro): 5/5 motor strength present throughout Sensory Exam: normal sensation Other: A&O 4, mild somnolence. Extrem: General: normal to inspection Psych: Mental Status: mental status grossly normal Affect: normal affect Other: Good insight and judgment, pleasant H&P: Results Labs Labs: Short CBC 05/12/24 Range/Units 11:43 WBC 15.5 H (4.5-10.0) K/mm3 Hgb 16.8 (14.0-18.0) g/dL Hct 48.7 (42.0-52.0) % Plt Count 342 (150-375) k/mm3 BMP 05/12/24 11:43 Sodium 140 Potassium 3.1 L Chloride 101 Carbon Dioxide 22 BUN 15 Creatinine 0.88 Glucose 130 H Calcium 9.9 Liver Function 05/12/24 Range/Units 11:43 Total Bilirubin 2.3 H (0.2-1.3) mg/dL AST 45 (17-59) U/L ALT 55 H (6-50) U/L Alkaline Phosphatase 77 (38-126) U/L Albumin 4.8 (3.5-5.1) g/dL Urine 05/12/24 Range/Units 14:22 Urine Color Yellow (Yellow) Urine Appearance Clear (Clear) Urine pH 8.0 (5.0-9.0) Ur Specific [place] > 1.045 H (1.001-1.035) Urine Protein Negative (Negative) mg/dL Urine Glucose (UA) Negative (Negative) mg/dL Assessment and Plan Assessment and plan (1) Abdominal pain: Qualifiers: Abdominal location: generalized Qualified Code(s): R10.84 - Generalized abdominal pain Code(s): R10.9 - Unspecified abdominal pain Status: Acute Assessment and Plan: - CT abdomen/pelvis: 1. No acute intra-abdominal/pelvic process. 2. Small sliding-type hiatal hernia with wall thickening in the distal esophagus which could be seen with esophagitis - pantoprazole IV daily - antiemetic p.r.n. - IV fluids: 1L bolus -> 125 mL/hr - NPO, consider advancing diet tomorrow - glucose 130, likely reactive to nausea and vomiting. Will check A1c. Patient will need outpatient follow-up for the hiatal hernia. (2) Intractable nausea and vomiting: Code(s): R11.2 - Nausea with vomiting, unspecified Status: Acute Assessment and Plan: - see above Plan Diet: NPO GI Prophylaxis: Pantoprazole IV DVT Prophylaxis: Low risk Lines: Peripheral Code Status: Full Code Quality VTE Prophylaxis VTE prophylaxis: mechanical ordered Hospitalist [facility] Advance Care Plan I have confirmed that the patient's Advanced Care Plan is present, code status is documented, or surrogate decision maker is listed in patient medical record.: Yes Medication Reconciliation I have utilized all available resources to obtain, update and review the patients current medications (includes all prescriptions, OTC, herbals, cannabis, and nutritional supplements).: Yes
[2024-05-12] MEDS: SODIUM CHLORIDE 0.9% IV 1,000 ML 125 ML IV CONT (17:55)
[2024-05-12] MEDS: PROMETHAZINE HCL 25 MG/ML AMPUL 12.5 MG IV PUSH (20:49)
[2024-05-13] MEDS: PROMETHAZINE HCL 25 MG/ML AMPUL 12.5 MG IV PUSH ×3 (03:45→17:04)
[2024-05-13 05:52] VITALS: BP 162/100; PULSE 95; RESP 18; TEMP 37.2; O2SAT 98
[2024-05-13 06:30] LABS: Basophils Absolute Auto 0.1 K/mm3 (0.0-0.1); Basophils Percent Auto 0.4 % (0.2-1.2); Eosinophils Absolute Auto 0.3 K/mm3 (0-0.3); Eosinophils Percent Auto 2.8 % (0-4.4); Hematocrit 42.1 % (42.0-52.0); Hemoglobin 14.2 g/dL (14.0-18.0); Immature Granulocyte Absolute 0.03 K/mm3 (0.00-0.031); Immature Granulocyte Percent A 0.3 % (0-0.5); Lymphocytes Percent Auto 9.4 % (18.3-44.2); Mean Corpuscular HGB Conc 33.7 g/dl (32-36); Mean Corpuscular Hemoglobin 30.1 pg (26-34); Mean Corpuscular Volume 89.2 fl (80-100); Mean Platelet Volume 10.8 fl (7.4-10.4); Monocytes Absolute Auto 0.9 K/mm3 (0.1-0.6); Monocytes Percent Auto 7.9 % (2.6-8.5); Neutrophils Absolute Auto 9.3 K/mm3 (1.3-6.7); Neutrophils Percent Auto 79.2 % (45.5-73.1); Platelet Count Result 250 k/mm3 (150-375); Red Blood Count 4.72 M/mm3 (4.6-6.20); Red Cell Distribution Width 12.5 % (11.5-14.5); White Blood Count 11.7 K/mm3 (4.5-10.0)
[2024-05-13 06:38] LABS: Anion Gap 9 mmol/L (4-12); Blood Urea Nitrogen 14 mg/dL (9-20); Calcium 8.9 mg/dL (8.4-10.2); Carbon Dioxide 25 mmol/L (22-30); Chloride 105 mmol/L (98-107); Estimated CRCL calculation 146 ml/min; Estimated Glomerular Filt Rate > 60; Glucose 95 mg/dL (65-110); Potassium 3.9 mmol/L (3.4-5.0); Sodium 139 mmol/L (137-145)
[2024-05-13 06:53] LABS: Platelet Estimate Adequate (Adequate); Schistocytes None Seen
[2024-05-13 08:00] VITALS: PULSE 67; RESP 18; O2SAT 100
[2024-05-13 08:45] VITALS: BP 116/85; PULSE 67; RESP 18; TEMP 36.6; O2SAT 100
[2024-05-13] MEDS: PANTOPRAZOLE SODIUM IV 40 MG VIAL IV PUSH (08:54)
[2024-05-13] MEDS: SODIUM CHLORIDE 0.9% IV 1,000 ML 125 ML IV CONT ×2 (09:37→17:58)
[2024-05-13 13:50] VITALS: BP 150/78; PULSE 63; RESP 18; TEMP 37.3; O2SAT 100
--- NOTE | 2024-05-13 13:58 | P.PNIM_ITS ---
Progress Note: A&P Assessment and Plan (1) Cannabinoid hyperemesis syndrome: Code(s): R11.2 - Nausea with vomiting, unspecified; F12.90 - Cannabis use, unspecified, uncomplicated Status: Acute Assessment and Plan: patient with known history of marijuana use * CT abdomen/pelvis:No acute intra-abdominal/pelvic process. Small sliding-type hiatal hernia with wall thickening in the distal esophagus which could be seen with esophagitis * pantoprazole IV daily * antiemetic p.r.n. * IV fluids: 1L bolus -> 125 mL/hr * NPO, consider advancing diet tomorrow * glucose 130, likely reactive to nausea and vomiting. Will check A1c. * Patient will need outpatient follow-up for the hiatal hernia. 05/13/24 * Clear liquid * Ativan PRN * schedule promethazine * Zofran p.r.n. * pain control * encouraged immediate marijuana cessation (2) Abdominal pain: Qualifiers: Abdominal location: generalized Qualified Code(s): R10.84 - Generalized abdominal pain Code(s): R10.9 - Unspecified abdominal pain Status: Acute Assessment and Plan: * SEE ABOVE (3) Intractable nausea and vomiting: Code(s): R11.2 - Nausea with vomiting, unspecified Status: Acute Assessment and Plan: - see above Plan Code status: Full code per patient DVT prophylaxis: SCD Stress ulcer prophylaxis: Protonix 40 daily PT/OT notes: ambulatory Disposition: patient continues admission to the medical unit for intractable vomiting likely secondary to marijuana use continue with antiemetics, IV fluids, benzos, and pain management still tolerating oral intake. when patient is medically stable he can be discharged home. Time Spent With Patient Time with patient: 15 - 25 minutes Subjective Date/time seen: 05/13/24 13:58 Interval history: Patient is a 28-year-old male who was admitted with intractable vomiting likely cannabinoid induced hyperemesis. 05/13/2024: Assumed Care patient still with severe nausea vomiting unable to tolerate oral intake patient does report using marijuana reports 8/10 abdominal pain. patient with mild diaphoresis no fever. Review of Systems Review of Systems: All systems reviewed & are unremarkable except as noted in HPI and below Exam Narrative: * GENERAL: Alert and oriented x 3. Nausea vomiting * LUNGS: Clear to auscultation bilaterally. No accessory muscle use. * CARDIOVASCULAR: Regular rate and rhythm. * ABDOMEN: Soft,Tenderness and non-distended. No palpable masses. * EXTREMITIES: No edema. Non-tender * SKIN: No rashes or lesions. Skin warm, dry. * NEUROLOGIC: No focal neurological deficits. CN II-XII grossly intact * PSYCHIATRIC: Appropriate mood and affect. Good judgement and insight. Objective Data Vital Signs Vital Signs: Vital Signs - 24 hr 05/12/24 15:45 05/12/24 16:10 05/12/24 16:12 Temperature Pulse Rate 93 71 78 Respiratory Rate 14 Blood Pressure 122/83 110/58 L 114/65 Pulse Oximetry 95 Oxygen Delivery 05/12/24 16:15 05/12/24 17:37 05/12/24 17:56 Temperature 96.9 F L Pulse Rate 105 H 65 65 Respiratory Rate 16 16 Blood Pressure 106/61 134/78 Pulse Oximetry 98 98 Oxygen Delivery Room Air 05/12/24 21:49 05/13/24 05:52 05/13/24 08:00 Temperature 97.8 F 99.0 F Pulse Rate 67 95 67 Respiratory Rate 14 18 18 Blood Pressure 115/65 162/100 H Pulse Oximetry 98 98 100 Oxygen Delivery Room Air 05/13/24 08:45 05/13/24 13:50 Temperature 97.9 F 99.2 F Pulse Rate 67 63 Respiratory Rate 18 18 Blood Pressure 116/85 150/78 H Pulse Oximetry 100 100 Oxygen Delivery Intake/Output Intake/Output: Intake & Output 05/10/24 05/11/24 05/12/24 05/13/24 23:59 23:59 23:59 23:59 Intake Total 1100 1240 Output Total 300 Balance 1100 940 Meds/Results Medications: Active Medications Generic Name Dose Route Start Last Admin Trade Name Freq PRN Reason Stop Dose Admin Acetaminophen 650 mg 05/12/24 17:58 Acetaminophen 650 Mg Suppository RECTAL Q6H PRN Mild Pain (1-3) or Fever Hydromorphone HCl 0.5 mg 05/13/24 12:07 Hydromorphone Hcl Inj (*Crx) 1 Mg/Ml Syr IV PUSH Q3H PRN Pain Rated 7-10 Sodium Chloride 1,000 mls @ 125 mls/hr 05/12/24 16:15 05/13/24 09:37 Normal Saline Iv IV CONT 125 mls/hr .Q8H ARMEN Administration Lorazepam 1 mg 05/13/24 12:07 Lorazepam Inj (*Crx) 2 Mg/Ml Vial IV PUSH Q4HR PRN Anxiety Ondansetron HCl 4 mg 05/13/24 12:09 Ondansetron Inj 4 Mg/2 Ml Vial IV PUSH Q6H PRN Nausea And Vomiting Pantoprazole Sodium 40 mg 05/13/24 09:00 05/13/24 08:54 Pantoprazole Sodium Iv 40 Mg Vial IV PUSH 40 mg QAM ARMEN Administration Promethazine HCl 12.5 mg 05/13/24 12:10 05/13/24 12:13 Promethazine Hcl 25 Mg/Ml Ampul IV PUSH Not Given Q6H ARMEN Radiology Results: ITS Impressions Abdomen/Pelvis CT 05/12/24 13:01 IMPRESSION: 1. No acute intra-abdominal/pelvic process. 2. Small sliding-type hiatal hernia with wall thickening in the distal esophagus which could be seen with esophagitis Labs Labs: Laboratory Results - last 24 hr 05/12/24 05/13/24 14:22 06:06 WBC 11.7 H RBC 4.72 Hgb 14.2 Hct 42.1 MCV 89.2 MCH 30.1 MCHC 33.7 RDW 12.5 Plt Count 250 MPV 10.8 H Immature Gran % (Auto) 0.3 Neut % (Auto) 79.2 H Lymph % (Auto) 9.4 L [place] % (Auto) 7.9 Eos % (Auto) 2.8 Baso % (Auto) 0.4 Lymph # (Auto) 1.10 [place] # (Auto) 0.9 H Eos # (Auto) 0.3 Baso # (Auto) 0.1 Abs Immat Gran (auto) 0.03 Absolute Neuts (auto) 9.3 H Absolute Nucleated RBC 0.000 Nucleated RBC % 0.0 Platelet Estimate Adequate Schistocytes None seen Sodium 139 Potassium 3.9 Chloride 105 Carbon Dioxide 25 Anion Gap 9 BUN 14 Creatinine 0.82 Estim Creat Clear Calc 146 Estimated GFR > 60 Glucose 95 Hemoglobin A1c 5.0 Calcium 8.9 Urine Color Yellow Urine Appearance Clear Urine pH 8.0 Ur Specific [place] > 1.045 H Urine Protein Negative Urine Glucose (UA) Negative Urine Ketones 1+ H Ur Blood (Man) Negative Urine Nitrate Negative Urine Bilirubin Negative Urine Urobilinogen 1.0 Leukocyte Esterase Rfl Negative Quality VTE Prophylaxis VTE prophylaxis: mechanical ordered -Patient's previous records reviewed on admission -ER notes reviewed in detail on admission -discussed all findings and current treatment plan with patient/Family/POA -Consultations reviewed for recommendations -Patient's disposition for safe discharge discussed with correctional case records supervisor Dictation performed by [employer] direct speech recognition software, t herefore banquet set up person variants and typographical errors may occur. Hospitalist [facility] Advance Care Plan I have confirmed that the patient's Advanced Care Plan is present, code status is documented, or surrogate decision maker is listed in patient medical record.: Yes Medication Reconciliation I have utilized all available resources to obtain, update and review the patients current medications (includes all prescriptions, OTC, herbals, cannabis, and nutritional supplements).: Yes The patient is not eligible for med reconciliation; the patient is in a emergent medical situation where delaying treatment would jeopardize the patients health.: No
[2024-05-13 14:00] VITALS: BP 150/78; PULSE 66; RESP 12; TEMP 37.3; O2SAT 100
[2024-05-13] MEDS: HYDROmorphone HCL INJ (*CRX) 1 MG/ML SYR 0.5 MG IV PUSH ×3 (14:40→21:02)
[2024-05-13 22:00] VITALS: BP 161/79; PULSE 96; RESP 18; TEMP 37.6; O2SAT 99
[2024-05-14] MEDS: PROMETHAZINE HCL 25 MG/ML AMPUL 12.5 MG IV PUSH ×5 (00:17→23:36)
[2024-05-14] MEDS: HYDROmorphone HCL INJ (*CRX) 1 MG/ML SYR 0.5 MG IV PUSH ×7 (00:32→23:24)
[2024-05-14] MEDS: SODIUM CHLORIDE 0.9% IV 1,000 ML 125 ML IV CONT ×3 (03:15→18:07)
[2024-05-14 06:00] VITALS: BP 127/78; PULSE 69; RESP 18; TEMP 37.1; O2SAT 100
[2024-05-14] MEDS: PANTOPRAZOLE SODIUM IV 40 MG VIAL IV PUSH (07:52)
[2024-05-14 08:00] VITALS: O2SAT 99
--- NOTE | 2024-05-14 10:11 | P.PNIM_ITS ---
Progress Note: A&P Assessment and Plan (1) Cannabinoid hyperemesis syndrome: Code(s): R11.2 - Nausea with vomiting, unspecified; F12.90 - Cannabis use, unspecified, uncomplicated Status: Acute Assessment and Plan: patient with known history of marijuana use * CT abdomen/pelvis:No acute intra-abdominal/pelvic process. Small sliding-type hiatal hernia with wall thickening in the distal esophagus which could be seen with esophagitis * pantoprazole IV daily * antiemetic p.r.n. * IV fluids: 1L bolus -> 125 mL/hr * NPO, consider advancing diet tomorrow * glucose 130, likely reactive to nausea and vomiting. Will check A1c. * Patient will need outpatient follow-up for the hiatal hernia. 05/13/24 * Clear liquid * Ativan PRN * schedule promethazine * Zofran p.r.n. * pain control * encouraged immediate marijuana cessation 05/14- labs ordered still nauseated. will order h pylori zofran available abd is soft, passing gas, BS present -no concern for acute abdoment may consider repeating imaging if continues to have nausea and abd discomfort (2) Abdominal pain: Qualifiers: Abdominal location: generalized Qualified Code(s): R10.84 - Generalized abdominal pain Code(s): R10.9 - Unspecified abdominal pain Status: Acute Assessment and Plan: * SEE ABOVE (3) Intractable nausea and vomiting: Code(s): R11.2 - Nausea with vomiting, unspecified Status: Acute Assessment and Plan: - see above Plan Code status: Full code per patient DVT prophylaxis: SCD Stress ulcer prophylaxis: Protonix 40 daily PT/OT notes: ambulatory Disposition: patient continues admission to the medical unit for intractable vomiting likely secondary to marijuana use continue with antiemetics, IV fluids, benzos, and pain management still tolerating oral intake. when patient is medically stable he can be discharged home. Time Spent With Patient Time with patient: 25 - 35 minutes Subjective Date/time seen: 05/14/24 10:11 Interval history: Patient is a 28-year-old male who was admitted with intractable vomiting likely cannabinoid induced hyperemesis. 05/14 pt is seen and examined. patient reports nausea vomiting unable to tolerate oral intake reports 8/10 abdominal pain- using dilaudid and trying to space it out not to use it too often. Abd is soft, pt reports no bloating, passing gas. Unsure when last BM was but was not eating much at all. VS reviewed, labs reviewed. Review of Systems Review of Systems: All systems reviewed & are unremarkable except as noted in HPI and below Exam Narrative: * GENERAL: Alert and oriented x 3. Nausea vomiting * LUNGS: Clear to auscultation bilaterally. No accessory muscle use. * CARDIOVASCULAR: Regular rate and rhythm. * ABDOMEN: Soft,Tenderness and non-distended. No palpable masses. * EXTREMITIES: No edema. Non-tender * SKIN: No rashes or lesions. Skin warm, dry. * NEUROLOGIC: No focal neurological deficits. CN II-XII grossly intact * PSYCHIATRIC: Appropriate mood and affect. Good judgement and insight. Const: General: comfortable and no acute distress Other: , male, nontoxic appearance HENMT: Face/Nose/Sinus: Normal nares present Mouth: Yes moist mucous membranes Eyes: General: appearance normal, both eyes and all related structures Sclera: sclerae normal Pupils: Equal, round and reactive pupils present EOM: EOMs intact bilaterally Resp: Effort & Inspection: normal respiratory effort Auscultation: clear to auscultation bilaterally Cardio: Rate: regular rate Rhythm: regular rhythm Other: S1-S2 present without murmur, rub, ectopy GI: Other: Abdomen soft, nondistended. Normoactive bowel sounds in all quadrants. Mild tenderness proximal to the umbilicus and midline. Skin: General skin exam: normal color and no rashes or lesions noted Wounds: no wounds Neuro: Cranial nerves: Yes Equal, round and reactive pupils present Speech: normal speech Motor exam (neuro): 5/5 motor strength present throughout Sensory Exam: normal sensation Other: A&O 4, mild somnolence. Extrem: General: normal to inspection Psych: Mental Status: mental status grossly normal Affect: normal affect Other: Good insight and judgment, pleasant Objective Data Vital Signs Vital Signs: Vital Signs - 24 hr 05/13/24 13:50 05/13/24 14:00 05/13/24 22:00 Temperature 99.2 F 99.2 F 99.7 F H Pulse Rate 63 66 96 Respiratory Rate 18 12 18 Blood Pressure 150/78 H 150/78 H 161/79 H Pulse Oximetry 100 100 99 05/14/24 06:00 Temperature 98.8 F Pulse Rate 69 Respiratory Rate 18 Blood Pressure 127/78 Pulse Oximetry 100 Intake/Output Intake/Output: Intake & Output 05/11/24 05/12/24 05/13/24 05/14/24 23:59 23:59 23:59 23:59 Intake Total 1100 2240 1000 Output Total 850 900 Balance 1100 1390 100 Meds/Results Medications: Active Medications Generic Name Dose Route Start Last Admin Trade Name Freq PRN Reason Stop Dose Admin Acetaminophen 650 mg 05/12/24 17:58 Acetaminophen 650 Mg Suppository RECTAL Q6H PRN Mild Pain (1-3) or Fever Hydromorphone HCl 0.5 mg 05/13/24 12:07 05/14/24 07:50 Hydromorphone Hcl Inj (*Crx) 1 Mg/Ml Syr IV PUSH 0.5 mg Q3H PRN Administration Pain Rated 7-10 Sodium Chloride 1,000 mls @ 125 mls/hr 05/12/24 16:15 05/14/24 03:15 Normal Saline Iv IV CONT 125 mls/hr .Q8H ARMEN Administration Lorazepam 1 mg 05/13/24 12:07 Lorazepam Inj (*Crx) 2 Mg/Ml Vial IV PUSH Q4HR PRN Anxiety Ondansetron HCl 4 mg 05/13/24 12:09 Ondansetron Inj 4 Mg/2 Ml Vial IV PUSH Q6H PRN Nausea And Vomiting Pantoprazole Sodium 40 mg 05/13/24 09:00 05/14/24 07:52 Pantoprazole Sodium Iv 40 Mg Vial IV PUSH 40 mg QAM ARMEN Administration Promethazine HCl 12.5 mg 05/13/24 12:10 05/14/24 06:06 Promethazine Hcl 25 Mg/Ml Ampul IV PUSH 12.5 mg Q6H ARMEN Administration Radiology Results: ITS Impressions Abdomen/Pelvis CT 05/12/24 13:01 IMPRESSION: 1. No acute intra-abdominal/pelvic process. 2. Small sliding-type hiatal hernia with wall thickening in the distal esophagus which could be seen with esophagitis Quality VTE Prophylaxis VTE prophylaxis: mechanical ordered
[2024-05-14 10:13] VITALS: O2SAT 100
[2024-05-14 11:43] LABS: Hematocrit 45.7 % (42.0-52.0); Hemoglobin 15.8 g/dL (14.0-18.0); Mean Corpuscular HGB Conc 34.6 g/dl (32-36); Mean Corpuscular Hemoglobin 30.7 pg (26-34); Mean Corpuscular Volume 88.7 fl (80-100); Mean Platelet Volume 11.7 fl (7.4-10.4); Platelet Count Result 227 k/mm3 (150-375); Red Blood Count 5.15 M/mm3 (4.6-6.20); Red Cell Distribution Width 12.1 % (11.5-14.5); White Blood Count 10.5 K/mm3 (4.5-10.0)
[2024-05-14 11:54] LABS: Anion Gap 12 mmol/L (4-12); Blood Urea Nitrogen 8 mg/dL (9-20); Carbon Dioxide 23 mmol/L (22-30); Chloride 104 mmol/L (98-107); Estimated CRCL calculation 176 ml/min; Estimated Glomerular Filt Rate > 60; Glucose 97 mg/dL (65-110); Potassium 3.4 mmol/L (3.4-5.0); Sodium 139 mmol/L (137-145)
[2024-05-14 14:00] VITALS: BP 142/74; PULSE 67; RESP 16; TEMP 37.2; O2SAT 99
[2024-05-14 14:07] LABS: Add Urine Microscopic? NO; Appearance Urine Clear (Clear); Bilirubin Urine Negative (Negative); Blood Urine Negative (Negative); Color Urine Yellow (Yellow); Glucose Urine UA Negative (Negative); Ketones Urine 1+ mg/dL (Negative); Leukocyte Esterase Ur Negative LEU/UL (Negative); Nitrate Urine Negative (Negative); Protein Urine Negative (Negative); Specific Grav Ur 1.008 (1.001-1.035)
[2024-05-14] MEDS: ONDANSETRON INJ 4 MG/2 ML VIAL IV PUSH (17:30)
[2024-05-14 22:00] VITALS: BP 122/83; PULSE 54; RESP 20; TEMP 36.3; O2SAT 99
[2024-05-15] MEDS: SODIUM CHLORIDE 0.9% IV 1,000 ML 125 ML IV CONT ×2 (04:18→13:53)
[2024-05-15] MEDS: PROMETHAZINE HCL 25 MG/ML AMPUL 12.5 MG IV PUSH ×2 (05:43→17:07)
[2024-05-15 06:00] VITALS: BP 119/73; PULSE 64; RESP 20; TEMP 36.1; O2SAT 100
[2024-05-15] MEDS: HYDROmorphone HCL INJ (*CRX) 1 MG/ML SYR 0.5 MG IV PUSH ×3 (06:14→12:27)
[2024-05-15] MEDS: ONDANSETRON INJ 4 MG/2 ML VIAL IV PUSH ×2 (09:30→20:57)
[2024-05-15] MEDS: PANTOPRAZOLE SODIUM IV 40 MG VIAL IV PUSH ×2 (09:30→20:57)
[2024-05-15] MEDS: KETOROLAC 15 MG/ML VIAL (*BKC) IV PUSH ×2 (12:28→20:58)
[2024-05-15] MEDS: PROCHLORPERAZINE EDISYLATE 10 MG/2 ML VIAL IV PUSH (12:37)
[2024-05-15 14:00] VITALS: BP 100/60; PULSE 57; RESP 16; TEMP 36.7; O2SAT 97
--- NOTE | 2024-05-15 14:02 | P.PNIM_ITS ---
Progress Note: A&P Assessment and Plan (1) Cannabinoid hyperemesis syndrome: Code(s): R11.2 - Nausea with vomiting, unspecified; F12.90 - Cannabis use, unspecified, uncomplicated Status: Acute (2) Abdominal pain: Qualifiers: Abdominal location: generalized Qualified Code(s): R10.84 - Generalized abdominal pain Code(s): R10.9 - Unspecified abdominal pain Status: Acute (3) Intractable nausea and vomiting: Code(s): R11.2 - Nausea with vomiting, unspecified Status: Acute Plan This is a 28-year-old male who presented with nausea vomiting and abdominal pain. He has been unable to keep anything down. His vitals were stable on arrival to the ED. laboratory studies showed white cell count is 15.5 hypokalemia 3.1. Bilirubin was 2.3. Urinalysis was negative for UTI. CT scan of the abdomen pelvis showed no acute intra-abdominal pelvic process. Small sliding-type hiatal hernia with wall thickening in the distal esophagus which could be seen with esophagitis. He has history of marijuana use last used approximately 2 weeks ago. Lipase normal at 83. Continued to have abdominal pain and discomfort. Continue on PPI. On clear liquid diet reminded to put him NPO. Recheck labs and lactate. May need to rescanned. Subjective Date/time seen: 05/15/24 14:02 Interval history: Patient complaining of abdominal discomfort as well as nausea no vomiting. Was retching when I went in. Patient started trying brought this a.m. which led to this event. He was admitted on 05/12/24. Review of Systems Review of Systems: All systems reviewed & are unremarkable except as noted in HPI and below Exam Narrative: * GENERAL: Alert and oriented x 3. Nausea vomiting * LUNGS: Clear to auscultation bilaterally. No accessory muscle use. * CARDIOVASCULAR: Regular rate and rhythm. * ABDOMEN: Soft,Tenderness PeriUmbilical area mildly distended bowel sound normo active No palpable masses. * EXTREMITIES: No edema. Non-tender * SKIN: No rashes or lesions. Skin warm, dry. * NEUROLOGIC: No focal neurological deficits. CN II-XII grossly intact * PSYCHIATRIC: Appropriate mood and affect. Good judgement and insight. Objective Data Vital Signs Vital Signs: Vital Signs - 24 hr 05/14/24 22:00 05/15/24 06:00 Temperature 97.3 F L 97.0 F L Pulse Rate 54 L 64 Respiratory Rate 20 20 Blood Pressure 122/83 119/73 Pulse Oximetry 99 100 Intake/Output Intake/Output: Intake & Output 05/12/24 05/13/24 05/14/24 05/15/24 23:59 23:59 23:59 23:59 Intake Total 1100 2240 3198.8 2718 Output Total 850 1700 1400 Balance 1100 1390 1498.8 1318 Meds/Results Medications: Active Medications Generic Name Dose Route Start Last Admin Trade Name Freq PRN Reason Stop Dose Admin Acetaminophen 650 mg 05/12/24 17:58 Acetaminophen 650 Mg Suppository RECTAL Q6H PRN Mild Pain (1-3) or Fever Hydromorphone HCl 0.5 mg 05/13/24 12:07 05/15/24 12:27 Hydromorphone Hcl Inj (*Crx) 1 Mg/Ml Syr IV PUSH 0.5 mg Q3H PRN Administration Pain Rated 7-10 Sodium Chloride 1,000 mls @ 125 mls/hr 05/12/24 16:15 05/15/24 13:53 Normal Saline Iv IV CONT 125 mls/hr .Q8H ARMEN Administration Ketorolac Tromethamine 15 mg 05/15/24 12:10 05/15/24 12:28 Ketorolac 15 Mg/Ml Vial (*Bkc) IV PUSH 15 mg Q6H PRN Administration Pain Rated 4-6 Lorazepam 1 mg 05/13/24 12:07 Lorazepam Inj (*Crx) 2 Mg/Ml Vial IV PUSH Q4HR PRN Anxiety Ondansetron HCl 4 mg 05/13/24 12:09 05/15/24 09:30 Ondansetron Inj 4 Mg/2 Ml Vial IV PUSH 4 mg Q6H PRN Administration Nausea And Vomiting Pantoprazole Sodium 40 mg 05/13/24 09:00 05/15/24 09:30 Pantoprazole Sodium Iv 40 Mg Vial IV PUSH 40 mg QAM ARMEN Administration Promethazine HCl 12.5 mg 05/13/24 12:10 05/15/24 05:43 Promethazine Hcl 25 Mg/Ml Ampul IV PUSH 12.5 mg Q6H ARMEN Administration Radiology Results: ITS Impressions Abdomen/Pelvis CT 05/12/24 13:01 IMPRESSION: 1. No acute intra-abdominal/pelvic process. 2. Small sliding-type hiatal hernia with wall thickening in the distal esophagus which could be seen with esophagitis Labs Labs: Laboratory Results - last 24 hr 05/14/24 13:55 Urine Color Yellow Urine Appearance Clear Urine pH 7.0 Ur Specific [place] 1.008 Urine Protein Negative Urine Glucose (UA) Negative Urine Ketones 1+ H Ur Blood (Man) Negative Urine Nitrate Negative Urine Bilirubin Negative Urine Urobilinogen 1.0 Leukocyte Esterase Rfl Negative
[2024-05-15 15:33] LABS: Basophils Absolute Auto 0.1 K/mm3 (0.0-0.1); Basophils Percent Auto 0.5 % (0.2-1.2); Eosinophils Percent Auto 0.1 % (0-4.4); Hematocrit 40.5 % (42.0-52.0); Hemoglobin 14.2 g/dL (14.0-18.0); Immature Granulocyte Absolute 0.06 K/mm3 (0.00-0.031); Immature Granulocyte Percent A 0.4 % (0-0.5); Lymphocytes Absolute Auto 1.38 K/mm3 (0.9-3.2); Mean Corpuscular HGB Conc 35.1 g/dl (32-36); Mean Corpuscular Hemoglobin 30.5 pg (26-34); Mean Corpuscular Volume 87.1 fl (80-100); Mean Platelet Volume 10.2 fl (7.4-10.4); Monocytes Absolute Auto 1.3 K/mm3 (0.1-0.6); Monocytes Percent Auto 9.1 % (2.6-8.5); Neutrophils Percent Auto 79.9 % (45.5-73.1); Platelet Count Result 276 k/mm3 (150-375); Red Blood Count 4.65 M/mm3 (4.6-6.20); Red Cell Distribution Width 12.2 % (11.5-14.5); White Blood Count 13.8 K/mm3 (4.5-10.0)
[2024-05-15 15:50] LABS: Lactic Acid Reflex 1.6 mmol/L (0.7-2.0)
[2024-05-15 15:51] LABS: Alanine Aminotransferase 80 U/L (6-50); Albumin Level 3.9 g/dL (3.5-5.1); Alkaline Phosphatase 59 U/L (38-126); Anion Gap 10 mmol/L (4-12); Aspartate Amino Transferase 51 U/L (17-59); Blood Urea Nitrogen 8 mg/dL (9-20); Calcium 8.5 mg/dL (8.4-10.2); Carbon Dioxide 29 mmol/L (22-30); Chloride 101 mmol/L (98-107); Estimated CRCL calculation 149 ml/min; Estimated Glomerular Filt Rate > 60; Glucose 103 mg/dL (65-110); Magnesium 1.9 mg/dL (1.6-2.3); Potassium 3.5 mmol/L (3.4-5.0); Sodium 140 mmol/L (137-145)
[2024-05-15] MEDS: LORazepam INJ (*CRX) 2 MG/ML VIAL 1 MG IV PUSH (20:57)
[2024-05-15 22:00] VITALS: BP 130/79; PULSE 69; RESP 20; TEMP 36.9; O2SAT 100
[2024-05-16] MEDS: KETOROLAC 15 MG/ML VIAL (*BKC) IV PUSH ×2 (04:28→20:04)
[2024-05-16] MEDS: ONDANSETRON INJ 4 MG/2 ML VIAL IV PUSH ×3 (04:28→20:05)
[2024-05-16 06:00] VITALS: BP 137/76; PULSE 78; RESP 18; TEMP 36.7; O2SAT 97
[2024-05-16 06:57] LABS: Basophils Absolute Auto 0.1 K/mm3 (0.0-0.1); Basophils Percent Auto 0.5 % (0.2-1.2); Eosinophils Absolute Auto 0.1 K/mm3 (0-0.3); Eosinophils Percent Auto 0.4 % (0-4.4); Immature Granulocyte Absolute 0.06 K/mm3 (0.00-0.031); Immature Granulocyte Percent A 0.5 % (0-0.5); Lymphocytes Absolute Auto 1.57 K/mm3 (0.9-3.2); Lymphocytes Percent Auto 13.7 % (18.3-44.2); Mean Corpuscular HGB Conc 34.1 g/dl (32-36); Mean Corpuscular Hemoglobin 30.2 pg (26-34); Mean Corpuscular Volume 88.6 fl (80-100); Mean Platelet Volume 10.8 fl (7.4-10.4); Monocytes Absolute Auto 1.2 K/mm3 (0.1-0.6); Monocytes Percent Auto 10.3 % (2.6-8.5); Neutrophils Absolute Auto 8.6 K/mm3 (1.3-6.7); Neutrophils Percent Auto 74.6 % (45.5-73.1); Platelet Count Result 231 k/mm3 (150-375); Red Blood Count 4.63 M/mm3 (4.6-6.20); Red Cell Distribution Width 12.4 % (11.5-14.5); White Blood Count 11.5 K/mm3 (4.5-10.0)
[2024-05-16 07:40] LABS: Alanine Aminotransferase 86 U/L (6-50); Albumin Level 3.6 g/dL (3.5-5.1); Alkaline Phosphatase 65 U/L (38-126); Anion Gap 9 mmol/L (4-12); Aspartate Amino Transferase 55 U/L (17-59); Blood Urea Nitrogen 7 mg/dL (9-20); Calcium 8.3 mg/dL (8.4-10.2); Carbon Dioxide 19 mmol/L (22-30); Chloride 108 mmol/L (98-107); Estimated CRCL calculation 157 ml/min; Estimated Glomerular Filt Rate > 60; Glucose 89 mg/dL (65-110); Magnesium 2.2 mg/dL (1.6-2.3); Potassium 3.8 mmol/L (3.4-5.0); Sodium 136 mmol/L (137-145)
[2024-05-16 08:00] VITALS: PULSE 78; RESP 18; O2SAT 97
[2024-05-16] MEDS: PANTOPRAZOLE SODIUM IV 40 MG VIAL IV PUSH ×2 (09:26→20:03)
[2024-05-16] MEDS: PROCHLORPERAZINE EDISYLATE 10 MG/2 ML VIAL IV PUSH (09:27)
[2024-05-16] MEDS: SODIUM CHLORIDE 0.9% IV 1,000 ML 125 ML IV CONT ×2 (09:32→20:03)
--- NOTE | 2024-05-16 10:09 | P.PNIM_ITS ---
Progress Note: A&P Assessment and Plan (1) Cannabinoid hyperemesis syndrome: Code(s): R11.2 - Nausea with vomiting, unspecified; F12.90 - Cannabis use, unspecified, uncomplicated Status: Acute (2) Abdominal pain: Qualifiers: Abdominal location: generalized Qualified Code(s): R10.84 - Generalized abdominal pain Code(s): R10.9 - Unspecified abdominal pain Status: Acute (3) Intractable nausea and vomiting: Code(s): R11.2 - Nausea with vomiting, unspecified Status: Acute Plan This is a 28-year-old male who presented with nausea vomiting and abdominal pain. He has been unable to keep anything down. His vitals were stable on arrival to the ED. laboratory studies showed white cell count is 15.5 hypokalemia 3.1. Bilirubin was 2.3. Urinalysis was negative for UTI. CT scan of the abdomen pelvis showed no acute intra-abdominal pelvic process. Small sliding-type hiatal hernia with wall thickening in the distal esophagus which could be seen with esophagitis. He has history of marijuana use last used approximately 2 weeks ago. Lipase normal at 83. Continued to have abdominal pain and discomfort. Continue on PPI. On clear liquid diet will advance to full liquid diet today. Recheck labs stable. Lactate was normal. Improved with Compazine. Will continue supportive treatment as ordered Subjective Date/time seen: 05/16/24 10:09 Interval history: Abdominal pain is better. Some nausea persist but much better with Compazine labs reviewed. Review of Systems Review of Systems: All systems reviewed & are unremarkable except as noted in HPI and below Exam Narrative: * GENERAL: Alert and oriented x 3. Nausea vomiting * LUNGS: Clear to auscultation bilaterally. No accessory muscle use. * CARDIOVASCULAR: Regular rate and rhythm. * ABDOMEN: Soft,Tenderness PeriUmbilical area mildly distended bowel sound normoactive No palpable masses. * EXTREMITIES: No edema. Non-tender * SKIN: No rashes or lesions. Skin warm, dry. * NEUROLOGIC: No focal neurological deficits. CN II-XII grossly intact * PSYCHIATRIC: Appropriate mood and affect. Good judgement and insight. Objective Data Vital Signs Vital Signs: Vital Signs - 24 hr 05/15/24 14:00 05/15/24 20:00 05/15/24 22:00 Temperature 98.1 F 98.5 F Pulse Rate 57 L 69 Respiratory Rate 16 20 Blood Pressure 100/60 130/79 Pulse Oximetry 97 100 Oxygen Delivery Room Air 05/16/24 06:00 Temperature 98.1 F Pulse Rate 78 Respiratory Rate 18 Blood Pressure 137/76 Pulse Oximetry 97 Oxygen Delivery Intake/Output Intake/Output: Intake & Output 05/13/24 05/14/24 05/15/24 05/16/24 23:59 23:59 23:59 23:59 Intake Total 2240 3198.8 3228.4 1189.6 Output Total 850 1700 3000 1600 Balance 1390 1498.8 228.4 -410.4 Meds/Results Medications: Active Medications Generic Name Dose Route Start Last Admin Trade Name Freq PRN Reason Stop Dose Admin Acetaminophen 650 mg 05/12/24 17:58 Acetaminophen 650 Mg Suppository RECTAL Q6H PRN Mild Pain (1-3) or Fever Hydromorphone HCl 0.5 mg 05/13/24 12:07 05/15/24 12:27 Hydromorphone Hcl Inj (*Crx) 1 Mg/Ml Syr IV PUSH 0.5 mg Q3H PRN Administration Pain Rated 7-10 Sodium Chloride 1,000 mls @ 125 mls/hr 05/12/24 16:15 05/16/24 09:32 Normal Saline Iv IV CONT 125 mls/hr .Q8H ARMEN Administration Ketorolac Tromethamine 15 mg 05/15/24 12:10 05/16/24 04:28 Ketorolac 15 Mg/Ml Vial (*Bkc) IV PUSH 15 mg Q6H PRN Administration Pain Rated 4-6 Lorazepam 1 mg 05/13/24 12:07 05/15/24 20:57 Lorazepam Inj (*Crx) 2 Mg/Ml Vial IV PUSH 1 mg Q4HR PRN Administration Anxiety Ondansetron HCl 4 mg 05/13/24 12:09 05/16/24 04:28 Ondansetron Inj 4 Mg/2 Ml Vial IV PUSH 4 mg Q6H PRN Administration Nausea And Vomiting Pantoprazole Sodium 40 mg 05/15/24 21:00 05/16/24 09:26 Pantoprazole Sodium Iv 40 Mg Vial IV PUSH 40 mg Q12H ARMEN Administration Prochlorperazine Edisylate 10 mg 05/15/24 17:47 05/16/24 09:27 Prochlorperazine Edisylate 10 Mg/2 Ml Vial IV PUSH 10 mg Q6H PRN Administration Nausea And Vomiting Radiology Results: ITS Impressions Abdomen/Pelvis CT 05/12/24 13:01 IMPRESSION: 1. No acute intra-abdominal/pelvic process. 2. Small sliding-type hiatal hernia with wall thickening in the distal esophagus which could be seen with esophagitis Labs Labs: Laboratory Results - last 24 hr 05/15/24 05/16/24 15:21 06:28 WBC 13.8 H 11.5 H RBC 4.65 4.63 Hgb 14.2 14.0 Hct 40.5 L 41.0 L MCV 87.1 88.6 MCH 30.5 30.2 MCHC 35.1 34.1 RDW 12.2 12.4 Plt Count 276 231 MPV 10.2 10.8 H Immature Gran % (Auto) 0.4 0.5 Neut % (Auto) 79.9 H 74.6 H Lymph % (Auto) 10.0 L 13.7 L [place] % (Auto) 9.1 H 10.3 H Eos % (Auto) 0.1 0.4 Baso % (Auto) 0.5 0.5 Lymph # (Auto) 1.38 1.57 [place] # (Auto) 1.3 H 1.2 H Eos # (Auto) 0.0 0.1 Baso # (Auto) 0.1 0.1 Abs Immat Gran (auto) 0.06 H 0.06 H Absolute Neuts (auto) 11.0 H 8.6 H Absolute Nucleated RBC 0.000 0.000 Nucleated RBC % 0.0 0.0 Sodium 140 136 L Potassium 3.5 3.8 Chloride 101 108 H Carbon Dioxide 29 19 L Anion Gap 10 9 BUN 8 L 7 L Creatinine 0.80 0.76 Estim Creat Clear Calc 149 157 Estimated GFR > 60 > 60 Glucose 103 89 Lactic Acid 1.6 Calcium 8.5 8.3 L Magnesium 1.9 2.2 Total Bilirubin 2.0 H 3.0 H AST 51 55 ALT 80 H 86 H Alkaline Phosphatase 59 65 Total Protein 7.0 7.0 Albumin 3.9 3.6
[2024-05-16] MEDS: LORazepam INJ (*CRX) 2 MG/ML VIAL 1 MG IV PUSH ×2 (13:58→20:04)
[2024-05-16 14:00] VITALS: BP 141/86; PULSE 84; RESP 20; TEMP 36.7; O2SAT 100
[2024-05-16 20:00] VITALS: PULSE 84; RESP 20; O2SAT 100
[2024-05-16 22:00] VITALS: BP 122/69; PULSE 74; RESP 20; TEMP 36.9; O2SAT 98
[2024-05-17] MEDS: HYDROmorphone HCL INJ (*CRX) 1 MG/ML SYR 0.5 MG IV PUSH (03:09)
[2024-05-17] MEDS: ONDANSETRON INJ 4 MG/2 ML VIAL IV PUSH ×2 (03:09→12:10)
[2024-05-17] MEDS: SODIUM CHLORIDE 0.9% IV 1,000 ML 125 ML IV CONT ×2 (03:10→12:11)
[2024-05-17 06:00] VITALS: BP 144/91; PULSE 67; RESP 20; TEMP 36.6; O2SAT 100
[2024-05-17 07:55] LABS: Basophils Absolute Auto 0.1 K/mm3 (0.0-0.1); Basophils Percent Auto 0.9 % (0.2-1.2); Eosinophils Absolute Auto 0.2 K/mm3 (0-0.3); Eosinophils Percent Auto 1.5 % (0-4.4); Hematocrit 41.6 % (42.0-52.0); Hemoglobin 14.5 g/dL (14.0-18.0); Immature Granulocyte Absolute 0.06 K/mm3 (0.00-0.031); Immature Granulocyte Percent A 0.6 % (0-0.5); Lymphocytes Absolute Auto 1.77 K/mm3 (0.9-3.2); Lymphocytes Percent Auto 17.7 % (18.3-44.2); Mean Corpuscular HGB Conc 34.9 g/dl (32-36); Mean Corpuscular Hemoglobin 30.5 pg (26-34); Mean Corpuscular Volume 87.6 fl (80-100); Mean Platelet Volume 10.5 fl (7.4-10.4); Monocytes Percent Auto 10.4 % (2.6-8.5); Neutrophils Absolute Auto 6.9 K/mm3 (1.3-6.7); Neutrophils Percent Auto 68.9 % (45.5-73.1); Platelet Count Result 233 k/mm3 (150-375); Red Blood Count 4.75 M/mm3 (4.6-6.20); Red Cell Distribution Width 12.3 % (11.5-14.5)
[2024-05-17 08:10] LABS: Alanine Aminotransferase 68 U/L (6-50); Albumin Level 3.8 g/dL (3.5-5.1); Alkaline Phosphatase 71 U/L (38-126); Anion Gap 8 mmol/L (4-12); Aspartate Amino Transferase 33 U/L (17-59); Bilirubin,Total 2.3 mg/dL (0.2-1.3); Blood Urea Nitrogen 7 mg/dL (9-20); Calcium 8.7 mg/dL (8.4-10.2); Carbon Dioxide 26 mmol/L (22-30); Chloride 105 mmol/L (98-107); Estimated CRCL calculation 163 ml/min; Estimated Glomerular Filt Rate > 60; Glucose 88 mg/dL (65-110); Magnesium 1.8 mg/dL (1.6-2.3); Potassium 3.1 mmol/L (3.4-5.0); Sodium 139 mmol/L (137-145)
[2024-05-17] MEDS: PROCHLORPERAZINE EDISYLATE 10 MG/2 ML VIAL IV PUSH (08:19)
[2024-05-17] MEDS: PANTOPRAZOLE SODIUM IV 40 MG VIAL IV PUSH (08:19)
[2024-05-17] MEDS: POTASSIUM CHLORIDE 20 MEQ ER TABLET 40 MEQ PO (12:41)
--- NOTE | 2024-05-17 13:10 | P.DS_ITS ---
DS: Admitting Diagnosis Discharge Date 05/17/2024 Admitting Diagnosis nausea vomiting DS: Discharge Diagnosis Discharge Diagnosis (1) Cannabinoid hyperemesis syndrome: Code(s): R11.2 - Nausea with vomiting, unspecified; F12.90 - Cannabis use, unspecified, uncomplicated Status: Acute (2) Abdominal pain: Qualifiers: Abdominal location: generalized Qualified Code(s): R10.84 - Generalized abdominal pain Code(s): R10.9 - Unspecified abdominal pain Status: Acute (3) Intractable nausea and vomiting: Code(s): R11.2 - Nausea with vomiting, unspecified Status: Acute DS: Summary Hospital Course Hospital Course: This is a 28-year-old male who presented with nausea vomiting and abdominal pain. He has been unable to keep anything down. His vitals were stable on arrival to the ED. laboratory studies showed white cell count is 15.5 hypokalemia 3.1. Bilirubin was 2.3. Urinalysis was negative for UTI. CT scan of the abdomen pelvis showed no acute intra-abdominal pelvic process. Small sliding-type hiatal hernia with wall thickening in the distal esophagus which could be seen with esophagitis. He has history of marijuana use last used approximately 2 weeks ago. Lipase normal at 83. Continued to have abdominal pain and discomfort. Continue on PPI. On clear liquid diet will advance to full liquid diet which he tolerated well. Further advanced to soft diet Which he tolerated well as well. Recheck labs stable. Lactate was normal. Improved with Compazine. Will continue supportive treatment as ordered Time Spent with Patient Time attestation: Total time spent providing and/or coordinating discharge services: 40 minutes Exam Narrative: * GENERAL: Alert and oriented x 3. Nausea vomiting * LUNGS: Clear to auscultation bilaterally. No accessory muscle use. * CARDIOVASCULAR: Regular rate and rhythm. * ABDOMEN: Soft,Tenderness PeriUmbilical area mildly distended bowel sound normoactive No palpable masses. * EXTREMITIES: No edema. Non-tender * SKIN: No rashes or lesions. Skin warm, dry. * NEUROLOGIC: No focal neurological deficits. CN II-XII grossly intact * PSYCHIATRIC: Appropriate mood and affect. Good judgement and insight. DS: Data Data Completed and Pending Labs on day of discharge: Labs from last 24 hours 05/17/24 07:24 WBC 10.0 RBC 4.75 Hgb 14.5 Hct 41.6 L MCV 87.6 MCH 30.5 MCHC 34.9 RDW 12.3 Plt Count 233 MPV 10.5 H Immature Gran % (Auto) 0.6 H Neut % (Auto) 68.9 Lymph % (Auto) 17.7 L [place] % (Auto) 10.4 H Eos % (Auto) 1.5 Baso % (Auto) 0.9 Lymph # (Auto) 1.77 [place] # (Auto) 1.0 H Eos # (Auto) 0.2 Baso # (Auto) 0.1 Abs Immat Gran (auto) 0.06 H Absolute Neuts (auto) 6.9 H Absolute Nucleated RBC 0.000 Nucleated RBC % 0.0 Sodium 139 Potassium 3.1 L Chloride 105 Carbon Dioxide 26 Anion Gap 8 BUN 7 L Creatinine 0.73 Estim Creat Clear Calc 163 Estimated GFR > 60 Glucose 88 Calcium 8.7 Magnesium 1.8 Total Bilirubin 2.3 H AST 33 ALT 68 H Alkaline Phosphatase 71 Total Protein 7.0 Albumin 3.8 Imaging Radiologist's impression: ITS Impressions Abdomen/Pelvis CT 05/12/24 13:01 IMPRESSION: 1. No acute intra-abdominal/pelvic process. 2. Small sliding-type hiatal hernia with wall thickening in the distal esophagus which could be seen with esophagitis Discharge Plan Discharge Attending physician on discharge: Berhane Torres Discharging Clinician: Berhane Torres Anticipated Discharge Date/Time: 05/17/24 13:12 Patient Disposition: Home, Self-Care Activity: as tolerated Diet: regular Patient Instructions: Antibiotic Form Patient Language: Ivorian Stand Alone Forms: General Discharge Information Follow-up/Referrals: UNKNOWN,DOCTOR [Primary Care Provider] - 1 Week Discharge Medications: New pantoprazole [Protonix] 40 mg tablet,delayed release (DR/EC) 40 mg PO QAM Qty: 30 0RF prochlorperazine maleate [Compazine] 10 mg tablet 10 mg PO Q8H PRN (Reason: nausea and vomiting) Qty: 10 0RF No Action No Home Medications Date of admission: 05/14/24 10:42 Primary Care Provider: UNKNOWN,DOCTOR Admitting Provider: Giovany Hansen Attending physician on admission: Jovita Hoffman Condition: Stable
[2024-05-17 14:00] VITALS: BP 127/76; PULSE 114; RESP 16; TEMP 37.7; O2SAT 100
--- NOTE | 2024-05-17 14:10 | PC.NURSE ---
Patient Discharged agreeable to home Plan of Care. Patient able to tolerate PO fluids and regular diet with minimal [place]. Patient has no complaints of pain, able to void spontaneously, A-O-4. Able to ambulate himself out of hospital.
== END 2024-05-17 14:27 | disposition home or self-care (01) | DRG 249 ==
LOC: ANHED 15:34 → ANH3MEDSUR 17:11
PROVIDERS: Emergency Medicine; Nurse Practitioner; Student in an Organized Health Care Education/Training Program; Admitting Provider Internal Medicine; Emergency Provider Emergency Medicine; Visit Provider Internal Medicine
DX: R11.2 Nausea with vomiting, unspecified (principal); F12.90 Cannabis use, unspecified, uncomplicated; R10.9 Unspecified abdominal pain; E87.6 Hypokalemia; K46.9 Unspecified abdominal hernia without obstruction or gangrene
CPT/HCPCS: 36415; 74177; 80048; 80053; 81003; 83036; 83605; 83690; 83735; 85025; 85027; 96361; 96365; 96366; 96374; 96375; 96376; 99285; A9270; G0378; J0780; J1171; J1200; J1630; J1885; J2060; J2270; J2405; J2470; J2550; J3480; J7030; J7040; Q9967

== ENCOUNTER 2024-05-31 01:54 | Emergency (ER) | payer MEDICAID, SELFPAY ==
--- NOTE | ~2024-05-31 | CT_ITS ---
EXAMINATION: CT abdomen pelvis w con DATE: 05/31/2024 03:31 INDICATION: Epigastric pain and elevated lipase TECHNIQUE: Computed tomography (CT) of the abdomen and pelvis was performed with 100 mL Omnipaque-350 intravenous contrast. Automated exposure control and iterative reconstruction technique were employe d. The dose-length product was 719.58 mGy-cm. COMPARISON: 05/12/2024 and 04/14/2022 FINDINGS: Lung bases are clear. Heart size is normal. No pericardial or pleural effusion. Focal hepatic steatos is at the ligamentum teres. Gallbladder, spleen, pancreas, bilateral adrenal glands and kidneys are n ormal. No bowel obstruction. There is chronic mild fatty infiltration of the terminal ileum without s urrounding inflammatory stranding which could represent sequela of prior terminal ileitis. Bladder is normal. No free intraperitoneal gas or fluid. No pathologically enlarged abdominal or pelvic lymphad enopathy. Bones are unremarkable. IMPRESSION: 1. No acute intra-abdominal/pelvic process. Reviewed, dictated and finalized at location A. PLECHASE JOCKEY
[2024-05-31 01:55] VITALS: BP 140/98; PULSE 84; RESP 17; TEMP 36.8; O2SAT 99
--- OUTSIDE RECORDS SUMMARY | 2024-05-31 01:56 | XMS_ITS | Clinical Summary ---
Author Organization [facility] Address [address] [place] [address] Care Team Providers Care Internet Sales Consultant Name Role Phone None, Provider MD Primary Care Provider Unavaila ble Allergies No known active allergies Medications ondansetron (ZOFRAN-ODT) 4 MG disintegrating tablet Take 1 tablet (4 mg total) by mouth every 8 (eight) hours as needed for Nausea. 20 tablet 3 Active ondansetron (ZOFRAN-ODT) 4 MG disintegrating tablet Take 1 tablet (4 mg total) by mouth every 8 (eight) hours as needed for Nausea. 20 tablet 3 Active Social History Tobacco Use Types Packs/Day Years Used Date Smoking Tobacco: Never Assessed Sex and Gender Information Value Date Recorded Sex Assigned at Not on file Legal Sex Male 12:41 PM [employer] Gender Identity Not on file Sexual Orientation Not on file Last Filed Vital Signs Vital Sign Reading Time Taken Comments Blood Pressure 143/87 06/09/2022 3:14 PM [employer] Pulse 82 06/09/2022 3:14 PM [employer] Temperature 36.8 C (98.2 F) 06/09/2022 1:41 PM [employer]IC[employer] Respiratory Rate 22 06/09/2022 3:14 PM [employer]IC[employer] TR[employer]ER Oxygen Saturation 99% 06/09/2022 3:14 PM [employer]IC[employer] Inhaled Oxygen Concentration - - Weight 91.4 kg (201 lb 8 oz) 06/09/2022 1:41 PM [employer]IC[employer] Height 195.6 cm (6' 5 ) 06/09/2022 1:41 PM [employer]IC[employer] TR[employer]ER Body Mass Index 23.89 06/09/2022 1:41 PM H[employer]IC[employer] TR[employer]ER Plan of Treatment Health Maintenance Due Date Last Done Comments Annual Physical 1997 DTaP, Tdap and Td Vaccines (6 - Tdap) 2005 01/15/2000, 06/29/1996, 03/15/1995, Additional history exists Hepatitis C 2012 COVID-19 Vaccine ( season) 2023 Influenza Adult (#1) 2024 Hepatitis B Vaccines Completed 05/24/1995, 1994, 1994 HPV Vaccines Aged Out No longer eligi ble based on patient's age to complete this topic Meningococcal B Vaccine Aged Out No l onger eligible based on patient's age to complete this topic Meningococcal Vaccine Aged Out No alfredo barber eligible based on patient's age to complete this topic Pneumococcal Vaccine: Pediatrics (0 to 5 Years) and At-Risk Patients (6 to 64 Years) Aged Out No longer eligible based on patient's age to complete this topic RSV Immunizations Under 20 Months Aged Out No longer eligible based on patient's age to complete this topic Insurance [employer] Care Teams Internet Sales Consultant Relationship Specialty Start Date End Date None, Provider, MD PCP - General UNKNOWN PHYSICIAN SPECIALTY 05/22/22
--- OUTSIDE RECORDS SUMMARY | 2024-05-31 01:56 | XMS_ITS | Continuity of Care Document ---
Author Organization [facility] Address [email or web address] [address] [place] [address] Phone Care Team Providers Care Armoured Car Escort Name Role Phone Mal Olivas MD Unavailable Unavailable Allergies, Adverse Reactions, Alerts Substance Reaction Status Criticality No Known Allergies Active No Inform ation Medications Medication Instructions Dosage Effective Dates (start - stop) Status Comments omeprazole 20 mg capsule,delayed release take 2 capsule by oral route every day before a meal 40 MG - Active Procedures Procedure Date OFFICE/OUTPATIENT VISIT, EST PREV VISIT, NEW, AGE 18-39 Advance Directives Directive Yes / No Effective Date File Name No Information Encounters Encounter Description Practice Location Reason(s) For Visit Diagnoses Date Provider Providers Copied on Encounter [facility], [address] [place], [place], [address], tel:[phone] [facility] No Information Brendon Resendez. [address], [facility] [place], [address], [place]. tel:[phone] Referring Provider: Mal Olivas, [address] [facility] [place], [id number]. tel:[phone] OFFICE/OUTPAT IENT VISIT, EST [facility], [address] [place], [address], tel:[phone] [facility] abdominal pain (chief complaint)a bd pain (chief complaint) Acute gastric ulcer without hemorrhage or perforation Brendon Resendez. [address], [address] [place], [address], . tel:[phone] Referring Provider: Mal Olivas, [address], [place], [place], [address]. tel:[phone] PREV VISIT, NEW, AGE 18-39 [facility], [address], [place], [place], [address], [place] tel:[phone] [facility] Medicine Physical (chief complaint) Routine medical exam Brendon Resendez. [address], [address], [place], [place], [address], [place]. tel:[phone] Referring Provider: Mal Olivas, [address], [place], [place], [address]. tel:[phone] Family History Family Member Type Diagnosis Age At Onset Sister Problem (finding) Alive and well Father Problem (finding) Alcoholism Mother Problem (finding) breast [place] Payers Payer name Insurance type Covered constitution party ID Authoriza tion(s) No Information Social History Type Description Quantity Date Captured Comments Alcohol Use Details Unknown Caffeine Use Details Unknown Tobacco Use Status No Information Smoking Status No Information Sex Male Chief Complaint And Reason For Visit No Information Plan Of Treatment Date Type Action Status Referral Ordered: OPERATIVE UPPER GI ENDOSCOPY ordered Referral Ordered: NUC MED HIDA (HEPATOBILIARY) SCAN ordered History Of Present Illness Encounter Date Complaint History Of Prese nt Illness abdominal pain abd pain Pt has chronic i ntermittent midepigastric abdominal pain and intermittent nausea. Pt has been taking omeprzole and he has not had any pain since last month. His nausa also resolved. Pt had negative HIDA scan but upper GI showed multiple ulcers. Pt denies any rectal bleeding or acute abd pain Physical Pt needs annaul physical. Pt c/o intermittent sharp diffuse abdominal pain for the last 4-5 months. Pt states that sometimes it is worse with food. Pt has frequent nausea, vomiting post food for the past 4-5 months Pt recently went to ER and had benign abdominal xray. Pt denies any diarrhea, weight loss, blood in stool. Pt denies any other complaints. Pt unable to pinpoint triggering factor. Pt states that he has sharp pain twice per week sometimes more. Pt denies any GERd symptoms Instructions Date Instruction Additional Infor mation No Information Assessments Type Assessment Date No Information
--- NOTE | 2024-05-31 02:09 | ED_ITS ---
HPI - Abdominal Pain General Chief Complaint: Abdominal Pain Stated Complaint: abd pain, n/v Time Seen by Provider: 05/31/24 02:04 Source: patient Limitations: no limitations History of Present Illness HPI narrative: 28-year-old presents with epigastric abdominal pain associated with nausea but no vomiting of 2 days duration. Patient has had EGD performed previously. Last bowel movement was yesterday. On Saturday he had a soft but otherwise generally solid stool, not diarrhea. No constipation or bloody bowel movements. In regards to his last oral intake he has been able to have liquids today but not food and in general does not have an appetite. He states this has happened before but that previously it felt lower in his abdomen. He has previously seen a business system manager in the past but not recently. States he has not used marijuana in approximately a month. Denies fevers but has been having chills. No penile discharge. Denies any sick contacts. Patient was found to have a hernia he was seen for abdominal symptoms recently. He he was admitted at that time but did not have to undergo any surgical intervention and he states at the time discharge he had been feeling better until few days ago. Denies any cough or myalgias. Denies any shortness of breath other diet intermittently when he has waves of pain. He continues to pass flatus. He has been taking with her medications he had prescribed, thinks it was Zofran and probiotics. Related Data Allergies Allergy/AdvReac Type Severity Reaction Status Date / Time No Known Allergies Allergy Verified 05/31/24 01:54 [facility] Past Medical History Medical History (Updated 06/01/24 @ 00:00 by Ru Orlando) Allergic rhinitis, cause unspecified Colitis Bronchitis Surgical History Surgical History History of esophagogastroduodenoscopy (EGD) Family History Family History Mother Cancer Father Liver failure Social History Social History (Updated 06/01/24 @ 18:43 by Enid Sykes MD) Smoking status: Never smoker Alcohol intake: former Substance use type: marijuana Last use: Apr 2024 Do You Feel Safe in your Home?: Yes Lack of Transportation: No Lack of Food: Never True Current Housing: I Have Housing Concerned About Future Housing: No Difficulty Paying Gas/Electric Bills: No Difficulty Paying for Meds: No Currently Unemployed: No Education: High School Diploma/GED Difficulty w/ Childcare or Family Care: No Living arrangements: with family Additional living arrangements comments: Lives with his girlfriend and son though possibly in a hotel? Spiritual care concerns: No Exam 2 Narrative: GENERAL: well-nourished, nontoxic but in mild to moderate acute distress. HEAD: Normocephalic, atraumatic. EYES: Non injected, non icteric ENT: Nares clear, no rhinorrhea or epistaxis. NECK: Supple. CHEST: Speaking in full sentences. No respiratory distress. HEART: Regular rate and rhythm. . ABDOMEN: Soft, nondistended. Mild tenderness to palpation at epigastrium. Kim sign negative. EXTREMITIES: Normal range of motion. No lower extremity edema. SKIN: Warm, dry, no rash. NEURO: No focal deficits. Alert and oriented x3. PSYCH: Normal mood and affect. Course Vital Signs Vital signs: Vital Signs Temperature 98.2 F 05/31/24 01:55 Pulse Rate 84 05/31/24 01:55 Respiratory Rate 17 05/31/24 01:55 Blood Pressure 140/98 H 05/31/24 01:55 Pulse Oximetry 99 05/31/24 01:55 Oxygen Delivery Room Air 05/31/24 01:55 Temperature 97.7 F 05/31/24 08:26 Pulse Rate 79 05/31/24 08:26 Respiratory Rate 12 05/31/24 08:26 Blood Pressure 108/68 05/31/24 08:26 Pulse Oximetry 98 05/31/24 08:26 Oxygen Delivery Room Air 05/31/24 01:55 MDM - Abdominal Pain MDM Narrative Medical decision making narrative: Patient presents epigastric abdominal pain associated nausea 2 days duration. He has had similar and was diagnosed with a hernia although it did not require surgical intervention approximately 1 month ago. He had been admitted at that time for intractable nausea/vomiting. States he did improve while hospitalized and upon discharge been feeling better until a few days ago. States he has been taking medications prescribed which he believes were Zofran and probiotics. In the emergency department he is afebrile with vital signs that are notable for an elevation in diastolic blood pressure. Social determinants of health: possibly experiencing housing instability? He states he lives with his girlfriend and son but tells RN it is in a hotel. Lipase mildly elevated. Will proceed with CT imaging given this. He has a bit of not anion gap, likely due to starvation. Will give dextrose containing fluids. He has a leukocytosis and thrombocytosis. UDS positive for opiates (given to patient during ED visit), benzodiazepine and cannabinoids (though patient stated he had not used this in awhile). Patient reassessed at 6:45 a.m.. He states his abdominal pain is improving and moving in the right direction but symptoms still present. Will give Haldol and diphenhydramine. Patient reassessed approximately 8:00 a.m.. He states he had been feeling better but then when he got up to use the urinal again he became symptomatic. Does not know which combination of medications has worked best for him either today or previously. Will re-dose the Haldol diphenhydramine. Patient has IV fluids infusing, has received approximately 250mL of D5 NS. Upon reassessment patient states he is feeling better. He appears more comfortable at this time. Stable for discharge. Provided prescriptions for both Zofran and Compazine. Provided referral contact information for primary care physician. Differential Diagnosis Differential diagnosis: Likely abdominal pain, constipation, diverticulitis, pancreatitis and other (Gastritis, GERD, cannabinoid hyperemesis syndrome; spectrum of biliary etiology) Lab Data Attestation: I reviewed the patient's lab results. 05/31/24 02:54 05/31/24 02:54 Labs: Lab Results 05/31/24 05/31/24 05/31/24 Range/Units 02:54 06:01 06:50 WBC 13.5 H (4.5-10.0) K/mm3 RBC 5.30 (4.6-6.20) M/mm3 Hgb 16.2 (14.0-18.0) g/dL Hct 46.8 (42.0-52.0) % MCV 88.3 (80-100) fl MCH 30.6 (26-34) pg MCHC 34.6 (32-36) g/dl RDW 12.5 (11.5-14.5) % Plt Count 432 H D (150-375) k/mm3 MPV 10.2 (7.4-10.4) fl Immature Gran % (Auto) 0.4 (0-0.5) % Neut % (Auto) 77.3 H (45.5-73.1) % Lymph % (Auto) 13.1 L (18.3-44.2) % [place] % (Auto) 7.7 (2.6-8.5) % Eos % (Auto) 1.1 (0-4.4) % Baso % (Auto) 0.4 (0.2-1.2) % Lymph # (Auto) 1.77 (0.9-3.2) K/mm3 [place] # (Auto) 1.0 H (0.1-0.6) K/mm3 Eos # (Auto) 0.2 (0-0.3) K/mm3 Baso # (Auto) 0.1 (0.0-0.1) K/mm3 Abs Immat Gran (auto) 0.05 H (0.00-0.031) K/mm3 Absolute Neuts (auto) 10.4 H (1.3-6.7) K/mm3 Absolute Nucleated RBC 0.000 (0.0-0.012) K/mm3 Nucleated RBC % 0.0 (0.0-0.2) % Platelet Estimate Increased (Adequate) Large Platelets Present Schistocytes None seen Sodium 139 (137-145) mmol/L Potassium 4.0 (3.4-5.0) mmol/L Chloride 102 (98-107) mmol/L Carbon Dioxide 22 (22-30) mmol/L Anion Gap 15 H (4-12) mmol/L BUN 13 D (9-20) mg/dL Creatinine 0.80 (0.7-1.3) mg/dL Estim Creat Clear Calc 149 ml/min Estimated GFR > 60 (59 - ) Glucose 106 (65-110) mg/dL POC Capillary Glucose (65-105) mg/dl Calcium 10.2 (8.4-10.2) mg/dL Total Bilirubin 1.4 H (0.2-1.3) mg/dL AST 34 (17-59) U/L ALT 48 (6-50) U/L Alkaline Phosphatase 80 (38-126) U/L Total Protein 9.0 H (6.3-8.2) g/dL Albumin 4.8 (3.5-5.1) g/dL Lipase 488 H (23-300) U/L Urine Color Yellow (Yellow) Urine Appearance Clear (Clear) Urine pH 7.0 (5.0-9.0) Ur Specific [place] > 1.045 H (1.001-1.035) Urine Protein Trace (Negative) mg/dL Urine Glucose (UA) Negative (Negative) mg/dL Urine Ketones Trace H (Negative) mg/dL Ur Blood (Man) Negative (Negative) Urine Nitrate Negative (Negative) Urine Bilirubin Negative (Negative) Urine Urobilinogen 1.0 (<2.0) mg/dL Leukocyte Esterase Rfl Negative (Negative) YASMINE/UL Urine RBC 0-2 (0-2) /hpf Urine WBC 0-5 (0-3) /hpf Ur Squamous Epith Cells None seen (Few) /hpf Urine Bacteria None seen /hpf Urine Casts 0-2 Urine Opiates Screen Positive A (Negative) Urine Methadone Screen Negative (Negative) Ur Barbiturates Screen Negative (Negative) Ur Phencyclidine Scrn Negative (Negative) Ur Amphetamine Screen Negative (Negative) U Benzodiazepines Scrn Positive A (Negative) Urine Cocaine Screen Negative (Negative) U Cannabinoids Screen Positive A (Negative) Influenza A (RT-PCR) Negative (Negative) Influenza B (RT-PCR) Negative (Negative) SARS-CoV-2 RNA (RT-PCR) Negative (Negative) 05/31/24 Range/Units 07:11 WBC (4.5-10.0) K/mm3 RBC (4.6-6.20) M/mm3 Hgb (14.0-18.0) g/dL Hct (42.0-52.0) % MCV (80-100) fl MCH (26-34) pg MCHC (32-36) g/dl RDW (11.5-14.5) % Plt Count (150-375) k/mm3 MPV (7.4-10.4) fl Immature Gran % (Auto) (0-0.5) % Neut % (Auto) (45.5-73.1) % Lymph % (Auto) (18.3-44.2) % [place] % (Auto) (2.6-8.5) % Eos % (Auto) (0-4.4) % Baso % (Auto) (0.2-1.2) % Lymph # (Auto) (0.9-3.2) K/mm3 [place] # (Auto) (0.1-0.6) K/mm3 Eos # (Auto) (0-0.3) K/mm3 Baso # (Auto) (0.0-0.1) K/mm3 Abs Immat Gran (auto) (0.00-0.031) K/mm3 Absolute Neuts (auto) (1.3-6.7) K/mm3 Absolute Nucleated RBC (0.0-0.012) K/mm3 Nucleated RBC % (0.0-0.2) % Platelet Estimate (Adequate) Large Platelets Schistocytes Sodium (137-145) mmol/L Potassium (3.4-5.0) mmol/L Chloride (98-107) mmol/L Carbon Dioxide (22-30) mmol/L Anion Gap (4-12) mmol/L BUN (9-20) mg/dL Creatinine (0.7-1.3) mg/dL Estim Creat Clear Calc ml/min Estimated GFR (59 - ) Glucose (65-110) mg/dL POC Capillary Glucose 118 H (65-105) mg/dl Calcium (8.4-10.2) mg/dL Total Bilirubin (0.2-1.3) mg/dL AST (17-59) U/L ALT (6-50) U/L Alkaline Phosphatase (38-126) U/L Total Protein (6.3-8.2) g/dL Albumin (3.5-5.1) g/dL Lipase (23-300) U/L Urine Color (Yellow) Urine Appearance (Clear) Urine pH (5.0-9.0) Ur Specific [place] (1.001-1.035) Urine Protein (Negative) mg/dL Urine Glucose (UA) (Negative) mg/dL Urine Ketones (Negative) mg/dL Ur Blood (Man) (Negative) Urine Nitrate (Negative) Urine Bilirubin (Negative) Urine Urobilinogen (<2.0) mg/dL Leukocyte Esterase Rfl (Negative) YASMINE/UL Urine RBC (0-2) /hpf Urine WBC (0-3) /hpf Ur Squamous Epith Cells (Few) /hpf Urine Bacteria /hpf Urine Casts Urine Opiates Screen (Negative) Urine Methadone Screen (Negative) Ur Barbiturates Screen (Negative) Ur Phencyclidine Scrn (Negative) Ur Amphetamine Screen (Negative) U Benzodiazepines Scrn (Negative) Urine Cocaine Screen (Negative) U Cannabinoids Screen (Negative) Influenza A (RT-PCR) (Negative) Influenza B (RT-PCR) (Negative) SARS-CoV-2 RNA (RT-PCR) (Negative) Imaging Data Radiologist's impression: ITS Impressions Abdomen/Pelvis CT 05/31/24 10:18 IMPRESSION: 1. No acute intra-abdominal/pelvic process. CT Abd & Pelvis with Contrast: No evidence of acute pancreatitis. Colonic diverticulosis without acute diverticulitis. Mild wall thickening of the terminal ileum may be due to under distention. Infectious or inflammatory etiologies not excluded. Otherwise no acute process in the abdomen or pelvis. Discharge Plan Discharge Clinical Impression: Epigastric abdominal pain, Elevated lipase, Leukocytosis, Thrombocytosis, Nausea Patient Disposition: Home, Self-Care Condition: Stable Instructions: Antibiotic Form, Acute Nausea and Vomiting (ED), Leukocytosis (ED), Epigastric Pain (ED) Additional Instructions: As we discussed, no clear cause of your symptoms based on labs and imaging (CT scan). You are being discharged with prescriptions for some medications that may help. Follow up with your PCP. If you do not have 1 the name of the doctors listed below. Return to the ED with new/worsening symptoms. Rest and maintain your hydration. Patient Language: Lebanese Prescriptions: New prochlorperazine maleate [Compazine] 10 mg tablet 10 mg PO Q8H PRN (Reason: nausea and vomiting) Qty: 10 0RF ondansetron 4 mg tablet,disintegrating 4 mg PO Q8H PRN (Reason: nausea and vomiting) Qty: 7 0RF No Action prochlorperazine maleate [Compazine] 10 mg tablet 10 mg PO Q8H PRN (Reason: nausea and vomiting) Qty: 10 0RF Follow-up/Referrals: Thomas Lee MD [Physician] - (Internal Medicine/Family practice) UNKNOWN,DOCTOR [Primary Care Provider] - Stand Alone Forms: Work/School Release IP Time of Disposition: 08:49
--- OUTSIDE RECORDS SUMMARY | 2024-05-31 02:25 | XMS_ITS | Clinical Summary ---
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 HOME COUNSELOR Gender Identity Not on file Sexual Orientation Not on file Last Filed Vital Signs Vital Sign Reading Time Taken Comments Blood Pressure 143/87 06/09/2022 3:14 PM GROUP HOME COUNSELOR Pulse 82 06/09/2022 3:14 PM GROUP HOME COUNSELOR Temperature 36.8 C (98.2 F) 06/09/2022 1:41 PM GROUP HOME COUNSELOR Respiratory Rate 22 06/09/2022 3:14 PM GROUP HOME COUNSELOR Oxygen Saturation 99% 06/09/2022 3:14 PM GROUP HOME COUNSELOR Inhaled Oxygen Concentration - - Weight 91.4 kg (201 lb 8 oz) 06/09/2022 1:41 PM GROUP HOME COUNSELOR Height 195.6 cm (6' 5 ) 06/09/2022 1:41 PM GROUP HOME COUNSELOR Body Mass Index 23.89 06/09/2022 1:41 PM GROUP HOME COUNSELOR Plan of Treatment Health Maintenance Due Date [...] complete this topic Insurance RUBIN Care Teams Stenotype Machine Operator Relationship Specialty Start Date End Date None, Provider, MD PCP - General UNKNOWN PHYSICIAN SPECIALTY 05/22/22
--- OUTSIDE RECORDS SUMMARY | 2024-05-31 02:25 | XMS_ITS | Continuity of Care Document ---
Author Organization [facility] Address [address] [place] [address] [place] [address] Phone Care Team Providers Care Getter Operator Name Role Phone Mal Olivas MD Unavailable [...] Diagnoses Date Provider Providers Copied on Encounter [facility], [address] [place], [place], [address], tel:[phone] [facility] No Information Brendon Resendez. [address], [facility] [place], [address], [place]. tel:[phone] Referring Provider: Mal Olivas, [address] [facility] [place], [address]. tel:[phone] OFFICE/OUTPAT IENT VISIT, EST [facility], [address] [place], [address], tel:[phone] [facility] abdominal pain (chief complaint)a bd pain (chief complaint) Acute gastric ulcer without hemorrhage or perforation Brendon Resendez. [address], [place], [address], . tel:[phone] Referring Provider: Mal Olivas, [address], [place], [place], [address]. tel:[phone] PREV VISIT, NEW, AGE 18-39 [facility], [address], [place], [place], [address], [place] tel:[phone] [facility] Physical (chief complaint) Routine medical exam Brendon Resendez. [address], [address], [place], [place], [address], [place]. tel:[phone] Referring Provider: Mal Olivas, [address], [place], [place], [address]. tel:[phone] Family History Family Member Type Diagnosis Age At Onset Sister Problem (finding) Alive and well Father Problem (finding) Alcoholism Mother Problem (finding) breast [place] Payers Payer name Insurance type Covered republican ID Authoriza tion(s) No Information Social History [...]
[2024-05-31] MEDS: FAMOTIDINE 20 MG/2 ML VIAL IV PUSH (02:48)
[2024-05-31] MEDS: ONDANSETRON INJ 4 MG/2 ML VIAL IV PUSH (02:48)
[2024-05-31] MEDS: MORPHINE SULFATE (*CRX) 4 MG/ML INJ IV PUSH (02:48)
[2024-05-31 02:56] VITALS: PULSE 76; RESP 7; O2SAT 99
[2024-05-31 03:01] LABS: Basophils Absolute Auto 0.1 K/mm3 (0.0-0.1); Basophils Percent Auto 0.4 % (0.2-1.2); Eosinophils Absolute Auto 0.2 K/mm3 (0-0.3); Eosinophils Percent Auto 1.1 % (0-4.4); Hematocrit 46.8 % (42.0-52.0); Hemoglobin 16.2 g/dL (14.0-18.0); Immature Granulocyte Absolute 0.05 K/mm3 (0.00-0.031); Immature Granulocyte Percent A 0.4 % (0-0.5); Lymphocytes Absolute Auto 1.77 K/mm3 (0.9-3.2); Lymphocytes Percent Auto 13.1 % (18.3-44.2); Mean Corpuscular HGB Conc 34.6 g/dl (32-36); Mean Corpuscular Hemoglobin 30.6 pg (26-34); Mean Corpuscular Volume 88.3 fl (80-100); Mean Platelet Volume 10.2 fl (7.4-10.4); Monocytes Percent Auto 7.7 % (2.6-8.5); Neutrophils Absolute Auto 10.4 K/mm3 (1.3-6.7); Neutrophils Percent Auto 77.3 % (45.5-73.1); Platelet Count Result 432 k/mm3 (150-375); Red Cell Distribution Width 12.5 % (11.5-14.5); White Blood Count 13.5 K/mm3 (4.5-10.0)
[2024-05-31 03:13] LABS: Alanine Aminotransferase 48 U/L (6-50); Albumin Level 4.8 g/dL (3.5-5.1); Alkaline Phosphatase 80 U/L (38-126); Anion Gap 15 mmol/L (4-12); Aspartate Amino Transferase 34 U/L (17-59); Bilirubin,Total 1.4 mg/dL (0.2-1.3); Blood Urea Nitrogen 13 mg/dL (9-20); Calcium 10.2 mg/dL (8.4-10.2); Carbon Dioxide 22 mmol/L (22-30); Chloride 102 mmol/L (98-107); Estimated CRCL calculation 149 ml/min; Estimated Glomerular Filt Rate > 60; Glucose 106 mg/dL (65-110); Lipase 488 U/L (23-300); Sodium 139 mmol/L (137-145)
[2024-05-31 03:24] LABS: Large Platelets Present; Platelet Estimate Increased (Adequate); Schistocytes None Seen
[2024-05-31] MEDS: DEXTROSE 5%/0.9% SOD CHL 500 ML 100 ML IV CONT ×2 (03:44→08:24)
[2024-05-31 06:19] LABS: Add Urine Microscopic? YES; Appearance Urine Clear (Clear); Bacteria Urine None Seen /hpf; Bilirubin Urine Negative (Negative); Blood Urine Negative (Negative); Color Urine Yellow (Yellow); Glucose Urine UA Negative (Negative); Ketones Urine Trace mg/dL (Negative); Leukocyte Esterase Ur Negative LEU/UL (Negative); Nitrate Urine Negative (Negative); Non Pathogenic Casts 0-2; Protein Urine Trace mg/dL (Negative); RBC Urine 0-2 /hpf (0-2); Specific Grav Ur > 1.045 (1.001-1.035); Squamous Epithelial Cell Urine None Seen /hpf (Few); WBC Urine 0-5 /hpf (0-3)
[2024-05-31 06:31] LABS: Amphetamine Screen Urine Negative (Negative); Barbiturate Screen Urine Negative (Negative); Benzodiazepines Screen Urine Positive (Negative); Cannabinoid Screen Urine Positive (Negative); Cocaine Screen Urine Negative (Negative); Methadone Screen Urine Negative (Negative); Opiate Screen Urine Positive (Negative); Phencyclidine Screen Urine Negative (Negative)
[2024-05-31] MEDS: diphenhydrAMINE HCl INJ 50 MG/ML VIAL 25 MG IV PUSH ×2 (07:05→08:23)
[2024-05-31] MEDS: HALOPERIDOL LACTATE 5 MG/ML VIAL 2.5 MG IV PUSH ×2 (07:06→08:21)
[2024-05-31 07:31] VITALS: BP 110/74; PULSE 62; RESP 17; TEMP 36.6; O2SAT 98
[2024-05-31 07:37] LABS: Influenza A QL RT-PCR Negative (Negative); Influenza B QL RT-PCR Negative (Negative); SARS-CoV-2 RNA PCR Negative (Negative)
[2024-05-31] MEDS: BELLADONNA ALK/PHENOB ELIX 10 ML, MAG HYDROX/ALUMINUM HYD/SIMETH 30 ML, LIDOCAINE 2% VI... PO (08:20)
[2024-05-31 08:26] VITALS: BP 108/68; PULSE 79; RESP 12; TEMP 36.5; O2SAT 98
[2024-05-31 09:19] LABS: Glucose Point of Care 118 mg/dl (65-105)
== END 2024-05-31 09:03 | disposition home or self-care (01) ==
PROVIDERS: Emergency Provider Student in an Organized Health Care Education/Training Program
DX: R10.13 Epigastric pain (principal); R11.0 Nausea; D72.829 Elevated white blood cell count, unspecified; D75.839 Thrombocytosis, unspecified; R74.8 Abnormal levels of other serum enzymes; Z20.822 Contact with and (suspected) exposure to COVID-19
CPT/HCPCS: 36415; 74177; 80053; 80307; 81001; 82948; 83690; 85025; 87636; 96374; 96375; 96376; 99284; A9270; J1200; J1630; J2270; J2405; J7042; Q9967

== ENCOUNTER 2024-07-04 03:12 | Emergency (ER) | payer MEDICAID, SELFPAY ==
--- NOTE | ~2024-07-04 | CT_ITS ---
CT of the Abdomen and Pelvis: Indication: Abdominal pain Technique: 2.5 mm axial scans were obtained through the abdomen and pelvis following intravenous adm inistration of 100 cc of Omnipaque 350. Dose reduction technique was used on this scan by utilizing a utomated exposure control and iterative reconstruction technique. The dose-length product (DLP) was 5 34.90 mGy-cm. COMPARISON: 05/31/2024 Findings: Scans through the lung bases are unremarkable. The liver, spleen, pancreas, gallbladder, adrenals and kidneys are within normal limits. No evidence of aortic aneurysm. No lymphadenopathy. No bowel obstruction or bowel wall thickening. There is no evidence to suggest acute appendicitis. Images through the pelvis were performed. Urinary bladder unremarkable. No pelvic mass seen. No ascit es. Impression: No significant abnormalities seen. Reviewed, dictated and finalized at [facility]. Impression: No significant abnormalities seen.
[2024-07-04 03:14] VITALS: BP 140/99; PULSE 65; RESP 16; TEMP 36.9; O2SAT 100
--- OUTSIDE RECORDS SUMMARY | 2024-07-04 03:15 | XMS_ITS | Continuity of Care Document ---
Author Organization [facility] Address [address] [place] [address] [place] [address] Phone Care Team Providers Care Lockmaker Name Role Phone Mal Olivas MD Unavailable [...] Diagnoses Date Provider Providers Copied on Encounter [facility], [address] [place], [place], [address], tel:[phone] [facility] No Information Brendon Resendez. [address], [facility] [place], [address], [place]. tel:[phone] Referring Provider: Mal Olivas, [address] [facility] [place], [address]. tel:[phone] OFFICE/OUTPAT IENT VISIT, EST [facility], [address] [employer] [place], [address], tel:[phone] [facility] abdominal pain (chief complaint)a bd pain (chief complaint) Acute gastric ulcer without hemorrhage or perforation Brendon Resendez. [address], [address] [place], [address], . tel:[phone] Referring Provider: Mal Olivas, [address], [place], [place], [address]. tel:[phone] PREV VISIT, NEW, AGE 18-39 [facility], [address], [place], [place], [address], [place] tel:[phone] [facility] Medicine Physical (chief complaint) Routine medical exam Brendon Resendez. [address], [address], [place], [place], [address], [place]. tel:[phone] Referring Provider: Mal Olivas, [address], [place], [place], [address]. tel:[phone] Family History Family Member Type Diagnosis Age [...]
--- OUTSIDE RECORDS SUMMARY | 2024-07-04 03:15 | XMS_ITS | Clinical Summary ---
Author Organization [facility] Address [address] [place] [address] Care Team Providers Care Button Sawyer Name Role Phone None, Provider MD Primary [...] on file Legal Sex Male 12:41 PM WAITER/WAITRESS THIRD CLASS Gender Identity Not on file Sexual Orientation Not on file Last Filed Vital Signs Vital Sign Reading Time Taken Comments Blood Pressure 143/87 06/09/2022 3:14 PM WAITER/WAITRESS THIRD CLASS Pulse 82 06/09/2022 3:14 PM WAITER/WAITRESS THIRD CLASS Temperature 36.8 C (98.2 F) 06/09/2022 1:41 PM WAITER/WAITRESS THIRD CLASS Respiratory Rate 22 06/09/2022 3:14 PM WAITER/WAITRESS THIRD CLASS Oxygen Saturation 99% 06/09/2022 3:14 PM WAITER/WAITRESS THIRD CLASS Inhaled Oxygen Concentration - - Weight 91.4 kg (201 lb 8 oz) 06/09/2022 1:41 PM WAITER/WAITRESS THIRD CLASS Height 195.6 cm (6' 5 ) 06/09/2022 1:41 PM WAITER/WAITRESS THIRD CLASS Body Mass Index 23.89 06/09/2022 1:41 PM WAITER/WAITRESS THIRD CLASS Plan of Treatment Health Maintenance Due Date [...] complete this topic Insurance RUBIN Care Teams Button Sawyer Relationship Specialty Start Date End Date None, Provider, MD PCP - General UNKNOWN PHYSICIAN SPECIALTY 05/22/22
[2024-07-04 03:38] LABS: Basophils Percent Auto 0.2 % (0.2-1.2); Eosinophils Absolute Auto 0.1 K/mm3 (0-0.3); Eosinophils Percent Auto 0.6 % (0-4.4); Hematocrit 48.1 % (42.0-52.0); Immature Granulocyte Absolute 0.08 K/mm3 (0.00-0.031); Immature Granulocyte Percent A 0.5 % (0-0.5); Lymphocytes Absolute Auto 1.14 K/mm3 (0.9-3.2); Lymphocytes Percent Auto 6.7 % (18.3-44.2); Mean Corpuscular HGB Conc 35.3 g/dl (32-36); Mean Corpuscular Hemoglobin 30.2 pg (26-34); Mean Corpuscular Volume 85.4 fl (80-100); Mean Platelet Volume 10.5 fl (7.4-10.4); Monocytes Absolute Auto 0.5 K/mm3 (0.1-0.6); Monocytes Percent Auto 2.9 % (2.6-8.5); Neutrophils Absolute Auto 15.1 K/mm3 (1.3-6.7); Neutrophils Percent Auto 89.1 % (45.5-73.1); Platelet Count Result 375 k/mm3 (150-375); Red Blood Count 5.63 M/mm3 (4.6-6.20); Red Cell Distribution Width 12.1 % (11.5-14.5)
[2024-07-04 03:50] LABS: Alanine Aminotransferase 49 U/L (6-50); Albumin Level 5.5 g/dL (3.5-5.1); Alkaline Phosphatase 107 U/L (38-126); Anion Gap 21 mmol/L (4-12); Aspartate Amino Transferase 31 U/L (17-59); Bilirubin,Total 1.8 mg/dL (0.2-1.3); Blood Urea Nitrogen 14 mg/dL (9-20); Calcium 10.7 mg/dL (8.4-10.2); Carbon Dioxide 16 mmol/L (22-30); Chloride 104 mmol/L (98-107); Estimated CRCL calculation 148 ml/min; Estimated Glomerular Filt Rate > 60; Glucose 158 mg/dL (65-110); Lipase 82 U/L (23-300); Potassium 3.7 mmol/L (3.4-5.0); Sodium 141 mmol/L (137-145)
[2024-07-04 06:36] VITALS: BP 141/98; PULSE 109; RESP 17; TEMP 36.1; O2SAT 97
--- OUTSIDE RECORDS SUMMARY | 2024-07-04 07:40 | XMS_ITS | Clinical Summary ---
Author Organization [facility] Address [address] [place] [address] Care Team Providers Care Plug Drill Operator Name Role Phone None, Provider MD [...] on file Legal Sex Male 12:41 PM LIFE CARE PLANNER Gender Identity Not on file Sexual Orientation Not on file Last Filed Vital Signs Vital Sign Reading Time Taken Comments Blood Pressure 143/87 06/09/2022 3:14 PM LIFE CARE PLANNER Pulse 82 06/09/2022 3:14 PM LIFE CARE PL[employer]NER Temperature 36.8 C (98.2 F) 06/09/2022 1:41 PM LIFE CARE PL[employer]NER Respiratory Rate 22 06/09/2022 3:14 PM LIFE CARE PL[employer]NER Oxygen Saturation 99% 06/09/2022 3:14 PM LIFE CARE PL[employer]NER Inhaled Oxygen Concentration - - Weight 91.4 kg (201 lb 8 oz) 06/09/2022 1:41 PM LIFE CARE PLANNER Height 195.6 cm (6' 5 ) 06/09/2022 1:41 PM LIFE CARE PL[employer]NER Body Mass Index 23.89 06/09/2022 1:41 PM LIFE CARE PLANNER Plan of Treatment Health Maintenance Due Date [...] complete this topic Insurance RUBIN Care Teams Plug Drill Operator Relationship Specialty Start Date End Date None, Provider, MD PCP - General UNKNOWN PHYSICIAN SPECIALTY 05/22/22
--- OUTSIDE RECORDS SUMMARY | 2024-07-04 07:40 | XMS_ITS | Continuity of Care Document ---
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 [address], [facility] [place], [id number], [place]. tel:[phone] Referring Provider: Mal Olivas, [address] [facility] [place], [place], [id number]. tel:[phone] OFFICE/OUTPAT IENT VISIT, EST [facility], [address] [place], [id number], tel:[phone] [facility] abdominal pain (chief complaint)a bd pain (chief complaint) Acute gastric ulcer without hemorrhage or perforation Brendon Resendez. [address], [address] [place], [id number], . tel:[phone] Referring Provider: Mal Olivas, [address], [place], [place], [id number]. tel:[phone] PREV VISIT, NEW, AGE 18-39 [facility], [address], [place], [place], [address], [place] tel:[phone] [facility] Physical (chief complaint) Routine medical exam Brendon Resendez. [address], [address], [place], [place], [address], [place]. tel:[phone] Referring Provider: Mla Olivas, [address], [place], [place], [address]. tel:[phone] Family History Family Member Type Diagnosis Age [...]
--- NOTE | 2024-07-04 07:46 | ED.GENADULT ---
HPI - General Adult General Chief complaint: Nausea/Vomiting/Diarrhea Stated complaint: n/v Time Seen by Provider: 07/04/24 07:18 History of Present Illness HPI narrative: 28-year-old male present to the emergency department for evaluation for nausea vomiting and diarrhea. Patient does have a prior diagnosis of cannabinoid hyperemesis syndrome. Patient states he has had increased frequency of nausea and vomiting. Patient was concerned because he stated he had some black flakes in his emesis this morning. Patient did have a hamburger for his last meal. Patient does have a history of a small hiatal hernia. Related Data Allergies Allergy/AdvReac Type Severity Reaction Status Date / Time No Known Allergies Allergy Verified 07/04/24 03:13 Review of Systems Review of Systems: All systems reviewed & are unremarkable except as noted in HPI and below PMFSH Past Medical History Medical History (Updated 07/04/24 @ 09:20 by Dallas Carey MD) Allergic rhinitis, cause unspecified Colitis Bronchitis Surgical History Surgical History History of esophagogastroduodenoscopy (EGD) Family History Family History Mother Cancer Father Liver failure Social History Social History (Updated 06/01/24 @ 18:43 by Enid Sykes MD) Smoking status: Never smoker Alcohol intake: former Substance use type: marijuana Last use: Apr 2024 Do You Feel Safe in your Home?: Yes Lack of Transportation: No Lack of Food: Never True Current Housing: I Have Housing Concerned About Future Housing: No Difficulty Paying Gas/Electric Bills: No Difficulty Paying for Meds: No Currently Unemployed: No Education: High School Diploma/GED Difficulty w/ Childcare or Family Care: No Living arrangements: with family Additional living arrangements comments: Lives with his girlfriend and son though possibly in a hotel? Spiritual care concerns: No Exam Narrative: APPEARANCE: Uncomfortable appearing secondary to emesis HEAD: normocephalic, atraumatic. EYES: PERRLA/EOMI, conjunctivae clear. NOSE: Normal no drainage EARS:TMS clear with good light reflex. THROAT: Pharynx clear, no exudate. NECK: Supple. No adenopathy, no masses. RESPIRATORY: Airway patent, respirations nonlabored. Clear to auscultation bilaterally, no rales, rhonchi, wheezing. CARDIOVASCULAR: Regular rate and rhythm without murmurs rubs or gallops. ABDOMINAL: Soft, nontender, nondistended, normal bowel sounds MUSCULOSKELETAL: Moves all extremities. Strength/ROM intact, No edema, No calf tenderness. NEURO: Alert. Cranial nerves II through XII intact. Grossly intact SKIN: Warm, dry. Normal Color Course Vital Signs Vital signs: Vital Signs Temperature 98.5 F 07/04/24 03:14 Pulse Rate 65 07/04/24 03:14 Respiratory Rate 16 07/04/24 03:14 Blood Pressure 140/99 H 07/04/24 03:14 Pulse Oximetry 100 07/04/24 03:14 Oxygen Delivery Room Air 07/04/24 03:14 Temperature 97.0 F L 07/04/24 06:36 Pulse Rate 96 07/04/24 09:40 Respiratory Rate 16 07/04/24 09:40 Blood Pressure 132/79 07/04/24 09:40 Pulse Oximetry 99 07/04/24 09:40 Oxygen Delivery Room Air 07/04/24 03:14 Medical Decision Making MDM Narrative Medical decision making narrative: 28-year-old male presenting to the emergency department for evaluation for recurrent nausea and vomiting. Patient is currently afebrile but does have a leukocytosis of 17 hemoglobin of 17. Patient did have a blood glucose of 158 anion gap 21 this was prior to rehydration. CT scan showed no acute abnormalities. Patient did feel improved with treatment. Patient was advised to follow a clear liquid diet for the next to 3 days and is being provided Zofran for nausea control. Patient was once again re-educated on cannabinoid hyperemesis syndrome. Differential Diagnosis Differential Diagnosis: Cannabinoid hyperemesis syndrome, gastritis, colitis, diverticulitis Vital Signs Vital Signs: Vital Signs Temperature 98.5 F 07/04/24 03:14 Pulse Rate 65 07/04/24 03:14 Respiratory Rate 16 07/04/24 03:14 Blood Pressure 140/99 H 07/04/24 03:14 Pulse Oximetry 100 07/04/24 03:14 Oxygen Delivery Room Air 07/04/24 03:14 Temperature 97.0 F L 07/04/24 06:36 Pulse Rate 96 07/04/24 09:40 Respiratory Rate 16 07/04/24 09:40 Blood Pressure 132/79 07/04/24 09:40 Pulse Oximetry 99 07/04/24 09:40 Oxygen Delivery Room Air 07/04/24 03:14 Lab Data Lab results reviewed: Yes I reviewed the patient's lab results. 07/04/24 03:31 07/04/24 03:31 Labs: Lab Results 07/04/24 07/04/24 Range/Units 03:31 07:45 WBC 17.0 H (4.5-10.0) K/mm3 RBC 5.63 (4.6-6.20) M/mm3 Hgb 17.0 (14.0-18.0) g/dL Hct 48.1 (42.0-52.0) % MCV 85.4 (80-100) fl MCH 30.2 (26-34) pg MCHC 35.3 (32-36) g/dl RDW 12.1 (11.5-14.5) % Plt Count 375 (150-375) k/mm3 MPV 10.5 H (7.4-10.4) fl Immature Gran % (Auto) 0.5 (0-0.5) % Neut % (Auto) 89.1 H (45.5-73.1) % Lymph % (Auto) 6.7 L (18.3-44.2) % Brule % (Auto) 2.9 (2.6-8.5) % Eos % (Auto) 0.6 (0-4.4) % Baso % (Auto) 0.2 (0.2-1.2) % Lymph # (Auto) 1.14 (0.9-3.2) K/mm3 Brule # (Auto) 0.5 (0.1-0.6) K/mm3 Eos # (Auto) 0.1 (0-0.3) K/mm3 Baso # (Auto) 0.0 (0.0-0.1) K/mm3 Abs Immat Gran (auto) 0.08 H (0.00-0.031) K/mm3 Absolute Neuts (auto) 15.1 H (1.3-6.7) K/mm3 Absolute Nucleated RBC 0.000 (0.0-0.012) K/mm3 Nucleated RBC % 0.0 (0.0-0.2) % Sodium 141 (137-145) mmol/L Potassium 3.7 (3.4-5.0) mmol/L Chloride 104 (98-107) mmol/L Carbon Dioxide 16 L (22-30) mmol/L Anion Gap 21 H (4-12) mmol/L BUN 14 (9-20) mg/dL Creatinine 0.81 (0.7-1.3) mg/dL Estim Creat Clear Calc 148 ml/min Estimated GFR > 60 (59 - ) Glucose 158 H (65-110) mg/dL Calcium 10.7 H (8.4-10.2) mg/dL Total Bilirubin 1.8 H (0.2-1.3) mg/dL AST 31 (17-59) U/L ALT 49 (6-50) U/L Alkaline Phosphatase 107 (38-126) U/L Total Protein 9.0 H (6.3-8.2) g/dL Albumin 5.5 H (3.5-5.1) g/dL Lipase 82 (23-300) U/L Urine Color Dark yellow (Yellow) Urine Appearance Clear (Clear) Urine pH 6.5 (5.0-9.0) Ur Specific [place] 1.028 (1.001-1.035) Urine Protein 2+ H (Negative) mg/dL Urine Glucose (UA) Negative (Negative) mg/dL Urine Ketones 4+ H (Negative) mg/dL Ur Blood (Man) 1+ H (Negative) Urine Nitrate Negative (Negative) Urine Bilirubin Negative (Negative) Urine Urobilinogen 1.0 (<2.0) mg/dL Leukocyte Esterase Rfl Negative (Negative) YASMINE/UL Urine RBC 3-5 H (0-2) /hpf Urine WBC 0-5 (0-3) /hpf Ur Squamous Epith Cells None seen (Few) /hpf Urine Bacteria None seen /hpf Urine Casts 0-2 Imaging Data Radiologist's impression: Impressions Abdomen/Pelvis CT 07/04/24 08:35 Impression: No significant abnormalities seen. Discharge Plan Discharge Clinical Impression: Cannabinoid hyperemesis syndrome, Nausea & vomiting Patient Disposition: Home, Self-Care Condition: Stable Instructions: Antibiotic Form, Clear Liquid Diet (ED), Acute Nausea and Vomiting (ED) Additional Instructions: Zofran as needed for nausea control. Follow a clear liquid diet. Advance to bland diet as tolerated. Have close follow-up with your primary care physician and with GI Patient Language: Belarusian Prescriptions: New ondansetron 4 mg tablet,disintegrating 4 mg PO Q8H PRN (Reason: nausea and vomiting) Qty: 14 0RF No Action prochlorperazine maleate [Compazine] 10 mg tablet 10 mg PO Q8H PRN (Reason: nausea and vomiting) Qty: 10 0RF prochlorperazine maleate [Compazine] 10 mg tablet 10 mg PO Q8H PRN (Reason: nausea and vomiting) Qty: 10 0RF ondansetron 4 mg tablet,disintegrating 4 mg PO Q8H PRN (Reason: nausea and vomiting) Qty: 7 0RF Follow-up/Referrals: UNKNOWN,DOCTOR [Primary Care Provider] -
[2024-07-04] MEDS: HALOPERIDOL LACTATE 5 MG/ML VIAL IM (07:54)
[2024-07-04 07:59] LABS: Add Urine Microscopic? YES; Appearance Urine Clear (Clear); Bacteria Urine None Seen /hpf; Bilirubin Urine Negative (Negative); Blood Urine 1+ (Negative); Color Urine Dark Yellow (Yellow); Glucose Urine UA Negative (Negative); Ketones Urine 4+ mg/dL (Negative); Leukocyte Esterase Ur Negative LEU/UL (Negative); Nitrate Urine Negative (Negative); Non Pathogenic Casts 0-2; Protein Urine 2+ mg/dL (Negative); Specific Grav Ur 1.028 (1.001-1.035); Squamous Epithelial Cell Urine None Seen /hpf (Few); WBC Urine 0-5 /hpf (0-3); pH Urine 6.5 (5.0-9.0)
[2024-07-04] MEDS: LACTATED RINGERS 1,000 ML 999 ML IV CONT (08:00)
[2024-07-04 09:40] VITALS: BP 132/79; PULSE 96; RESP 16; O2SAT 99
== END 2024-07-04 09:40 | disposition home or self-care (01) ==
PROVIDERS: Emergency Medicine; Emergency Provider Emergency Medicine
DX: R11.2 Nausea with vomiting, unspecified (principal); F12.90 Cannabis use, unspecified, uncomplicated
CPT/HCPCS: 36415; 74177; 80053; 81001; 83690; 85025; 96360; 96372; 99284; J1630; J7120; Q9967

== ENCOUNTER 2024-07-05 20:01 | Emergency (ER) | payer MEDICAID, SELFPAY ==
--- OUTSIDE RECORDS SUMMARY | 2024-07-05 20:02 | XMS_ITS | Clinical Summary ---
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 Gender Identity Not on file Sexual Orientation Not on file Last Filed Vital Signs Vital Sign Reading Time Taken Comments Blood Pressure 143/87 06/09/2022 3:14 PM SOLAR PHOTOVOLTAIC DESIGNER Pulse 82 06/09/2022 3:14 PM SOLAR PHOTOVOLTAIC DESIGNER Temperature 36.8 C (98.2 F) 06/09/2022 1:41 PM SOLAR PHOTOVOLTAIC DESIGNER Respiratory Rate 22 06/09/2022 3:14 PM SOLAR PHOTOVOLTAIC DESIGNER Oxygen Saturation 99% 06/09/2022 3:14 PM SOLAR PHOTOVOLTAIC DESIGNER Inhaled Oxygen Concentration - - Weight 91.4 kg (201 lb 8 oz) 06/09/2022 1:41 PM SOLAR PHOTOVOLTAIC DESIGNER Height 195.6 cm (6' 5 ) 06/09/2022 1:41 PM SOLAR PHOTOVOLTAIC DESIGNER Body Mass Index 23.89 06/09/2022 1:41 PM SOLAR PHOTOVOLTAIC DESIGNER Plan of Treatment Health Maintenance Due Date [...] complete this topic Insurance RUBIN Care Teams Supervisor Heading Relationship Specialty Start Date End Date None, Provider, MD PCP - General UNKNOWN PHYSICIAN SPECIALTY 05/22/22
--- OUTSIDE RECORDS SUMMARY | 2024-07-05 20:02 | XMS_ITS | Continuity of Care Document ---
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 [address], [facility] [place], [address], [place]. tel:[phone] Referring Provider: Mal Olivas, [address] [facility] [place], [id number]. tel:[phone] OFFICE/OUTPAT IENT VISIT, EST [facility], [address] [place], [address], tel:[phone] [facility] abdominal pain (chief complaint)a bd pain (chief complaint) Acute gastric ulcer without hemorrhage or perforation Brendon Resendez. [address], [address], [place], [address], . tel:[phone] Referring Provider: Mal Olivas, [address], [place], [place], [address]. tel:[phone] PREV VISIT, NEW, AGE 18-39 [facility], [address], [place], [place], [address], [place] tel:[phone] [facility] Physical (chief complaint) Routine medical exam Brendon Resendez. [address], [place], [place], [address], [place]. tel:[phone] Referring Provider: Mal Olivas, [address], [place], [place], [address]. tel:[phone] Family History Family Member Type Diagnosis Age [...]
[2024-07-05 20:03] VITALS: BP 194/91; PULSE 75; RESP 18; TEMP 37.2; O2SAT 100
--- NOTE | 2024-07-05 20:54 | ED_ITS ---
HPI - Nausea/Vomiting/Diarrhea General Chief complaint: Nausea/Vomiting/Diarrhea Stated complaint: vomiting, diarrhea Time Seen by Provider: 07/05/24 20:51 Source: patient and family Mode of arrival: ambulatory Limitations: no limitations History of Present Illness HPI Narrative: Patient presents initial nausea, multiple episodes of vomiting as well as diarrhea. States not having nausea currently but that his last oral intake was more than 12 hours ago. Before this he had nonbloody emesis he does state that it was dark did seem to have the appearance of coffee-grounds. He was seen yesterday in the ED for nausea and vomiting but states that his diarrhea which then developed after discharge is new and symptoms persist and he did not feel he had gotten any answers. CT had been performed during that visit. His abdominal pain is epigastric. No prior GI bleeding. He has had endoscopy and colonoscopy performed before although he states awhile ago; does not follow regularly with a director global strategic publisher sales. Has been seen previously in emergency department multiple times for GI complaints. Previously had been felt to possibly be cannabinoid hyperemesis syndrome or at least exacerbated by this although he states that he has not used marijuana in a long time. Trialed Zofran home. Does not drink alcohol. States his stools have been dark and black but not tarry or thin like melena. Denies anticoagulation, steroid use, or NSAIDs. No recent travel or antibiotics. No sick contacts. Related Data Allergies Allergy/AdvReac Type Severity Reaction Status Date / Time No Known Allergies Allergy Verified 07/04/24 03:13 [facility] Past Medical History Medical History Allergic rhinitis, cause unspecified Colitis Bronchitis Surgical History Surgical History History of colonoscopy History of esophagogastroduodenoscopy (EGD) Family History Family History Mother Cancer Father Liver failure Social History Social History Smoking status: Never smoker Alcohol intake: former Substance use type: marijuana Last use: Apr 2024 Do You Feel Safe in your Home?: Yes Lack of Transportation: No Lack of Food: Never True Current Housing: I Have Housing Concerned About Future Housing: No Difficulty Paying Gas/Electric Bills: No Difficulty Paying for Meds: No Currently Unemployed: No Education: High School Diploma/GED Difficulty w/ Childcare or Family Care: No Living arrangements: with family Additional living arrangements comments: Lives with his girlfriend and son though possibly in a hotel? Spiritual care concerns: No Exam 2 Narrative: GENERAL: well-nourished, in moderate acute distress. Appears uncomfortable HEAD: Normocephalic, atraumatic. EYES: Non injected, non icteric ENT: Nares clear, no rhinorrhea or epistaxis. Tacky mucous membranes NECK: Supple. CHEST: Speaking in full sentences. No respiratory distress. HEART: Regular rate and rhythm. . ABDOMEN: Soft, nondistended. Digital rectal exam with normal colored stool. No appreciable hemorrhoids. Normal rectal tone. FOBT/guaiac negative. Emesis basin provided to patient, no vomit produced while in the ED room. EXTREMITIES: Normal range of motion. No lower extremity edema. SKIN: Warm, dry, no rash. NEURO: No focal deficits. Alert and oriented x3. PSYCH: Congruent mood and affect. Course Vital Signs Vital signs: Vital Signs Temperature 99 F 07/05/24 20:03 Pulse Rate 75 07/05/24 20:03 Respiratory Rate 18 07/05/24 20:03 Blood Pressure 194/91 H 07/05/24 20:03 Pulse Oximetry 100 07/05/24 20:03 Oxygen Delivery Room Air 07/05/24 20:03 Temperature 99 F 07/05/24 20:03 Pulse Rate 74 07/06/24 03:16 Respiratory Rate 16 07/06/24 03:16 Blood Pressure 114/62 07/06/24 03:16 Pulse Oximetry 100 07/06/24 03:16 Oxygen Delivery Room Air 07/05/24 20:03 MDM - Nausea/Vomiting/Diarrhea MDM Narrative Medical decision making narrative: Patient presents with initial report of nausea and multiple episodes vomiting. He describes an episode or 2 of dark coffee ground emesis though no nausea currently as he states he not eaten in approximately 12 hours. He was seen yesterday for nausea and vomiting and had a CT scan performed symptoms persisted and he developed new onset diarrhea for which his stools dark/black although he does not describe melena. Denies anticoagulation, steroids, NSAIDs, or alcohol. Last use of marijuana was a long time ago per patient. Has undergone endoscopy and colonoscopy previously although this was a long time ago per patient. Does not follow regularly with the director global strategic publisher sales although has had multiple ED visits for these issues. In the emergency department he is afebrile vital signs notable for hypertension. The differential for acute ( less than 14d) diarrhea includes infectious etiologies (viral, preformed toxins, toxins formed after colonization, invasive bacteria, and parasites), medications, inflammatory causes (IBD, radiation enteritis, ischemic colitis, diverticulitis), malabsorption, secretory causes, or motility disorders. Patient has a leukocytosis. It is to some degree chronic but elevated and is approximately the same as yesterday. He also has a thrombocytosis that has been intermittently appreciated. Hyperbilirubinemia. Indirect predominant and mildly elevated from normal range. Ddx indirect hyperbilirubinemia Over production of bilirubin (hemolytic anemia), reduced uptake (cirrhosis or congestive hepatopathy), impaired conjugation, biliary obstruction, hereditary disease (Gilbert syndrome, Angelo-Juan syndrome, Crigler-Pauline syndrome), medication side effect (allopurinol, anabolic steroids, antibiotics, antimalarials, etc.) Patient given analgesic medication as well as antiemetic. Digital rectal exam guaiac negative. Given patient's age and that he just had a CT scan performed yesterday, will defer repeating this at this time initially. [place] bleeding score: Based on patient's Hgb, BUN, initial SBP, sex, heart rate, presence/absence of melena, syncope, hepatic disease, cardiac failure = 0 points, low risk Moore Score (predicts readmission risk in patients with acute lower GI bleeding) Based on age, sex, previous lower GI bleed admission, MARGE findings, HR, SBP, and initial Hgb: 2 points (99% probability of safe discharge) He has been unable to produce a urine sample and does appear be mildly dehydrated based on tacky mucous membranes. 1 L IV fluids lactated Ringer's ordered. He is reassessed at 10:35 p.m. and states that he continues to not have nausea. His pain is improving but still not absent, 6/10 severity. Haldol and diphenhydramine ordered. Viral panel negative. Urine obtained after 1 L IV fluids. Another L of fluids is ordered and urinalysis does show that he has 2+ ketonuria. P.o. challenge attempted. Patient reassessed approximately 2:00 a.m. and he states that he has successfully taken some sips of water although this started to make him feel nauseated again and so he stopped and did not try to eat crackers. Will give an additional dose of combination Haldol diphenhydramine. Patient had reported diarrhea however he has been in the emergency department for more than 6 hours and unable to produce a stool sample thus very low likelihood that this represents C difficile. Patient reassessed and states that he is feeling improved. He still does not believe he would be able to eat crackers but has been able to maintain his hydration we discussed that a limited clear liquid diet with advancement is reasonable. Patient notes that a previous medications that have been prescribed in had been cost prohibitive. He did note that his pharmacy is [facility] in [place]. Good Rx coupon was provided which shows that this medication should be 6 dollars and 38 cents with coupon. He is prescribed prochlorperazine. He already has Zoliliya ODT at home. I did strongly encourage him to follow-up with gastroenterology and provided him a referral given that this has been a longstanding chronic issue. He was also provided contact information/referral for a primary care physician. Otherwise stable for discharge. Differential Diagnosis Differential diagnosis: Likely traveler's diarrhea, food poisoning, gastroenteritis, clostridium difficile infection, drug-induced nausea and vomiting, dehydration and other (upper GIB (secondary to cirrhosis, gastritis, [place] cadet); lower GI B secondary to gastritis, upper GIB, IBD, colon cancer, ) Medical Records Attestation: I reviewed the patient's medical records. Medical records narrative: CT performed 07/04/24: Impression: No significant abnormalities seen. Lab Data Attestation: I reviewed the patient's lab results. 07/05/24 21:44 07/05/24 21:44 Labs: Lab Results 07/05/24 07/05/24 07/06/24 Range/Units 21:43 21:44 01:13 WBC 16.6 H (4.5-10.0) K/mm3 RBC 5.45 (4.6-6.20) M/mm3 Hgb 16.5 (14.0-18.0) g/dL Hct 47.3 (42.0-52.0) % MCV 86.8 (80-100) fl MCH 30.3 (26-34) pg MCHC 34.9 (32-36) g/dl RDW 12.0 (11.5-14.5) % Plt Count 412 H (150-375) k/mm3 MPV 10.4 (7.4-10.4) fl Immature Gran % (Auto) 0.4 (0-0.5) % Neut % (Auto) 89.3 H (45.5-73.1) % Lymph % (Auto) 5.4 L (18.3-44.2) % [place] % (Auto) 4.3 (2.6-8.5) % Eos % (Auto) 0.2 (0-4.4) % Baso % (Auto) 0.4 (0.2-1.2) % Lymph # (Auto) 0.90 (0.9-3.2) K/mm3 [place] # (Auto) 0.7 H (0.1-0.6) K/mm3 Eos # (Auto) 0.0 (0-0.3) K/mm3 Baso # (Auto) 0.1 (0.0-0.1) K/mm3 Abs Immat Gran (auto) 0.07 H (0.00-0.031) K/mm3 Absolute Neuts (auto) 14.8 H (1.3-6.7) K/mm3 Absolute Nucleated RBC 0.000 (0.0-0.012) K/mm3 Nucleated RBC % 0.0 (0.0-0.2) % PT 14.5 (11.1-14.7) Seconds INR 1.1 APTT 25.0 (22.3-36.8) Seconds Sodium 141 (137-145) mmol/L Potassium 3.4 (3.4-5.0) mmol/L Chloride 102 (98-107) mmol/L Carbon Dioxide 25 (22-30) mmol/L Anion Gap 14 H (4-12) mmol/L BUN 14 (9-20) mg/dL Creatinine 1.05 (0.7-1.3) mg/dL Estim Creat Clear Calc 116 ml/min Estimated GFR > 60 (59 - ) Glucose 124 H (65-110) mg/dL Lactic Acid 1.7 (0.7-2.0) mmol/L Calcium 10.0 (8.4-10.2) mg/dL Magnesium 1.6 (1.6-2.3) mg/dL Total Bilirubin 1.8 H (0.2-1.3) mg/dL Direct Bilirubin 0.0 (0-0.3) mg/dL Indirect Bilirubin 1.2 H (0-1.1) mg/dL AST 37 (17-59) U/L ALT 48 (6-50) U/L Alkaline Phosphatase 97 (38-126) U/L Total Protein 9.0 H (6.3-8.2) g/dL Albumin 5.3 H (3.5-5.1) g/dL Lipase 50 (23-300) U/L Urine Color Dark yellow (Yellow) Urine Appearance Clear (Clear) Urine pH 6.5 (5.0-9.0) Ur Specific Mize 1.019 (1.001-1.035) Urine Protein Trace (Negative) mg/dL Urine Glucose (UA) Negative (Negative) mg/dL Urine Ketones 2+ H (Negative) mg/dL Ur Blood (Man) Negative (Negative) Urine Nitrate Negative (Negative) Urine Bilirubin Negative (Negative) Urine Urobilinogen 2.0 H (<2.0) mg/dL Leukocyte Esterase Rfl Negative (Negative) AYSMINE/UL Urine RBC 0-2 (0-2) /hpf Urine WBC 0-5 (0-3) /hpf Ur Squamous Epith Cells None seen (Few) /hpf Urine Bacteria None seen /hpf Urine Casts 0-2 Influenza A (RT-PCR) Negative (Negative) Influenza B (RT-PCR) Negative (Negative) SARS-CoV-2 RNA (RT-PCR) Negative (Negative) Discharge Plan Discharge Clinical Impression: Coffee ground emesis, Dark stools, Leukocytosis, Thrombocytosis, Acute diarrhea Abdominal pain Qualifiers: Abdominal location: generalized Qualified Code(s): R10.84 - Generalized abdominal pain Patient Disposition: Home, Self-Care Condition: Stable Instructions: Antibiotic Form, Clear Liquid Diet (ED), Acute Diarrhea (ED), Leukocytosis (ED), Abdominal Pain (ED) Additional Instructions: No electrolyte abnormalities in your otherwise low risk. However, given the frequency of your problems, I do recommend follow-up with a director global strategic publisher sales. The name of a GI doctor is listed below. Without using insurance, you can use the good Rx coupon provided which makes the prescription for prochlorperazine cheaper. Rest and maintain your hydration. Follow-up with primary care physician. If you do not have 1 the name of a doctor is listed below. Patient Language: Serbian Prescriptions: New prochlorperazine maleate [Compazine] 10 mg tablet 10 mg PO Q8H PRN (Reason: nausea and vomiting) Qty: 10 0RF No Action ondansetron 4 mg tablet,disintegrating 4 mg PO Q8H PRN (Reason: nausea and vomiting) Qty: 14 0RF prochlorperazine maleate [Compazine] 10 mg tablet 10 mg PO Q8H PRN (Reason: nausea and vomiting) Qty: 10 0RF prochlorperazine maleate [Compazine] 10 mg tablet 10 mg PO Q8H PRN (Reason: nausea and vomiting) Qty: 10 0RF ondansetron 4 mg tablet,disintegrating 4 mg PO Q8H PRN (Reason: nausea and vomiting) Qty: 7 0RF Follow-up/Referrals: Mal Olivas MD [Physician] - (family practice/primary care) Jose Guadalupe Mata MD [Physician] - (gastroenterology) UNKNOWN,DOCTOR [Non-Staff] - Stand Alone Forms: Work/School Release IP Time of Disposition: 03:06
--- OUTSIDE RECORDS SUMMARY | 2024-07-05 21:34 | XMS_ITS | Referral Summary ---
Author Organization [facility] Address [address] [place] [address] Care Team Providers Care Lead Dental Assistant Name Role Phone No, Physician Primary Care Provider [phone] Allergies No known active allergies Medications promethazine (PHENERGAN) 25 mg suppository Insert 1 suppository (25 mg total) into the rectum every 6 (six) hours as needed for nausea or vomiting 12 suppository 09/28/19 19 Active acetaminophen (TYLENOL) 325 mg tablet Take 2 tablets (650 mg total) by mouth every 4 (four) hours as needed for pain 30 tablet 09/28/19 19 Active capsaicin (ZOSTRIX) 0.025 % cream Apply topically 2 (two) times a day 60 g 09/28/19 19 Active diazePAM (VALIUM) 2 mg tablet Take 1 tablet (2 mg total) by mouth every 6 (six) hours as needed for muscle spasms for up to 2 doses 2 tablet 09/28/19 19 Active ondansetron ODT (ZOFRAN-ODT) 4 mg disintegrating tablet Take 1 tablet (4 mg total) by mouth every 8 (eight) hours as needed for nausea or vomiting 20 tablet 03/19/20 19 Active dicyclomine (BENTYL) 20 mg tabletIndications: Abdominal Pain with Cramps Take 1 tablet (20 mg total) by mouth 4 (four) times a day as needed (abdominal pain) 20 tablet 03/19/20 19 Active famotidine (PEPCID) 40 mg tablet Take 1 tablet (40 mg total) by mouth nightly for 14 days 14 tablet 03/19/20 19 Active Active Problems Problem Noted Date Diagnosed Date Cyclic vomiting syndrome 08/13/2017 Assessment & Plan (08/13/2017 4:25 PM CDT): Supportive care Generalized abdominal pain 08/12/2017 Assessment & Plan (08/13/2017 4:19 PM CDT): Could have also gastroenteritis, monitor Assessment & Plan (08/12/2017 3:42 AM CDT): Given patient's extensive workup in the past will hold off on GI consult. Will resume Elavil and add p.r.n. Bentyl. Will check ESR, CRP and lactate. Patient states he had a fever at home of 101 however has been afebrile for us. Will continue to monitor. Nausea and vomiting 08/12/2017 Assessment & Plan (08/13/2017 4:18 PM CDT): Possible cyclic vomiting, extensive GI work up in the past negative Could be also related to occasionally use of marihuana Continue supportive care, anti-emetics prn Assessment & Plan (08/12/2017 3:19 AM CDT): Last emesis was around midnight per patient. Will continue with supportive care with Zofran. Continue to monitor. Patient is receiving IV fluids. Marijuana use 08/12/2017 Assessment & Plan (08/13/2017 4:19 PM CDT): Encourage to quit especially with possible diagnosis of cyclic vomiting Assessment & Plan (08/12/2017 3:19 AM CDT): Patient states he uses marijuana but does not use it daily. He states he last used 2 days ago. Acute bronchitis 05/17/2017 Fever 05/17/2017 Social History Tobacco Use Types Packs/Day Years Used Date Smoking Tobacco: Former Smokeless Tobacco: Never Alcohol Use Standard Drinks/Week Comments No 0 (1 standard drink = 0.6 oz pur e alcohol) Personal Safety Answer Date Recorded Have you ever been in or are you currently in a harmful physical or emotional relationship or is someone making you feel afraid or unsafe? 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 Gender Identity Not on file Sexual Orientation Not on file Last Filed Vital Signs Vital Sign Reading Time Taken Comments Blood Pressure 151/96 2023 10:44 AM CDT Pulse 77 2023 10:43 AM CDT Temperature 36.3 C (97.3 F) 2023 10:43 AM CDT Respiratory Rate 18 2023 10:43 AM CDT Oxygen Saturation 100% 2023 10:43 AM CDT Inhaled Oxygen Concentration - - Weight 95.3 kg (210 lb) 2023 10:43 AM CDT Height 195.6 cm (6' 5 ) 2023 10:43 AM CDT Body Mass Index 24.9 2023 10:43 AM CDT Plan of Treatment Not on file Insurance [facility] Advance Directives For more information, please contact: [phone] * Full Code (Latest Code Status on File) Date Activated Date Inactivated Comments 08/11/2017 11:24 PM 08/15/2017 3:05 PM Care Teams Lead Dental Assistant Relationship Specialty Start Date End Date No, Physician PCP - General 03/15/17
--- OUTSIDE RECORDS SUMMARY | 2024-07-05 21:34 | XMS_ITS | Clinical Summary ---
Author Organization [facility] Address [address] [place] [address] Care Team Providers Care Actuary Name Role Phone No, Physician Primary Care Provider [phone] Allergies No known active allergies Medications promethazine [...] days ago. 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
--- OUTSIDE RECORDS SUMMARY | 2024-07-05 21:34 | XMS_ITS | Continuity of Care Document ---
Author Organization [facility] Address [address] [address] Phone Care Team Providers Care University Relations Director Name Role Phone Mal Olivas MD Unavailable [...] Diagnoses Date Provider Providers Copied on Encounter [facility], [address] [place], [place], [id number], tel:[phone] [facility] No Information Brendon Resendez. [address], [facility] [place], [place], [id number], [place]. tel:[phone] Referring Provider: Mal Olivas, [address] [facility] [place], [place], [id number]. tel:[phone] OFFICE/OUTPAT IENT VISIT, EST [facility], [address] [place], [place], [id number], tel:[phone] [facility] abdominal pain (chief complaint)a bd pain (chief complaint) Acute gastric ulcer without hemorrhage or perforation Brendon Resendez. [address], [address] [place], [id number], . tel:[phone] Referring Provider: Mal Olivas, [address], [place], [place], [id number]. tel:[phone] PREV VISIT, NEW, AGE 18-39 [facility], [address], [place], [place], [id number], [place] tel:[phone] [facility] Medicine Physical (chief complaint) Routine medical exam Brendon Resendez. [address], [address], [place], [place], [id number], [place]. tel:[phone] Referring Provider: Mal Olivas, [address], [place], [place], [id number]. tel:[phone] Family History Family Member Type Diagnosis Age [...]
--- OUTSIDE RECORDS SUMMARY | 2024-07-05 21:34 | XMS_ITS | Clinical Summary ---
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 Gender Identity Not on file Sexual Orientation Not on file Last Filed Vital Signs Vital Sign Reading Time Taken Comments Blood Pressure 143/87 06/09/2022 3:14 PM SENIOR INFORMATION SECURITY ARCHITECT Pulse 82 06/09/2022 3:14 PM SENIOR INFORMATION SECURITY ARCHITECT Temperature 36.8 C (98.2 F) 06/09/2022 1:41 PM SENIOR INFORMATION SECURITY ARCHITECT Respiratory Rate 22 06/09/2022 3:14 PM SENIOR INFORMATION SECURITY ARCHITECT Oxygen Saturation 99% 06/09/2022 3:14 PM SENIOR INFORMATION SECURITY ARCHITECT Inhaled Oxygen Concentration - - Weight 91.4 kg (201 lb 8 oz) 06/09/2022 1:41 PM SENIOR INFORMATION SECURITY ARCHITECT Height 195.6 cm (6' 5 ) 06/09/2022 1:41 PM SENIOR INFORMATION SECURITY ARCHITECT Body Mass Index 23.89 06/09/2022 1:41 PM SENIOR INFORMATION SECURITY ARCHITECT Plan of Treatment Health Maintenance Due Date [...] complete this topic Insurance [employer] Care Teams Form Maker Relationship Specialty Start Date End Date None, Provider, MD PCP - General UNKNOWN PHYSICIAN SPECIALTY 05/22/22
[2024-07-05] MEDS: MORPHINE SULFATE (*CRX) 4 MG/ML INJ IV PUSH (21:37)
[2024-07-05] MEDS: FAMOTIDINE 20 MG/2 ML VIAL IV PUSH (21:37)
[2024-07-05] MEDS: ONDANSETRON INJ 4 MG/2 ML VIAL IV PUSH (21:37)
[2024-07-05 21:41] VITALS: BP 166/108; PULSE 81; RESP 15; O2SAT 100
[2024-07-05 21:51] LABS: Basophils Absolute Auto 0.1 K/mm3 (0.0-0.1); Basophils Percent Auto 0.4 % (0.2-1.2); Eosinophils Percent Auto 0.2 % (0-4.4); Hematocrit 47.3 % (42.0-52.0); Hemoglobin 16.5 g/dL (14.0-18.0); Immature Granulocyte Absolute 0.07 K/mm3 (0.00-0.031); Immature Granulocyte Percent A 0.4 % (0-0.5); Lymphocytes Percent Auto 5.4 % (18.3-44.2); Mean Corpuscular HGB Conc 34.9 g/dl (32-36); Mean Corpuscular Hemoglobin 30.3 pg (26-34); Mean Corpuscular Volume 86.8 fl (80-100); Mean Platelet Volume 10.4 fl (7.4-10.4); Monocytes Absolute Auto 0.7 K/mm3 (0.1-0.6); Monocytes Percent Auto 4.3 % (2.6-8.5); Neutrophils Absolute Auto 14.8 K/mm3 (1.3-6.7); Neutrophils Percent Auto 89.3 % (45.5-73.1); Platelet Count Result 412 k/mm3 (150-375); Red Blood Count 5.45 M/mm3 (4.6-6.20); White Blood Count 16.6 K/mm3 (4.5-10.0)
[2024-07-05 22:04] LABS: Alanine Aminotransferase 48 U/L (6-50); Albumin Level 5.3 g/dL (3.5-5.1); Alkaline Phosphatase 97 U/L (38-126); Anion Gap 14 mmol/L (4-12); Aspartate Amino Transferase 37 U/L (17-59); Bilirubin,Total 1.8 mg/dL (0.2-1.3); Blood Urea Nitrogen 14 mg/dL (9-20); Carbon Dioxide 25 mmol/L (22-30); Chloride 102 mmol/L (98-107); Estimated CRCL calculation 116 ml/min; Estimated Glomerular Filt Rate > 60; Glucose 124 mg/dL (65-110); Lipase 50 U/L (23-300); Magnesium 1.6 mg/dL (1.6-2.3); Potassium 3.4 mmol/L (3.4-5.0); Sodium 141 mmol/L (137-145)
[2024-07-05 22:05] LABS: INR 1.1; Lactic Acid Reflex 1.7 mmol/L (0.7-2.0); Prothrombin Time 14.5 Seconds (11.1-14.7)
[2024-07-05 22:51] LABS: Influenza A QL RT-PCR Negative (Negative); Influenza B QL RT-PCR Negative (Negative); SARS-CoV-2 RNA PCR Negative (Negative)
[2024-07-05] MEDS: PANTOPRAZOLE SODIUM IV 40 MG VIAL 80 MG IV PUSH (23:00)
[2024-07-05] MEDS: HALOPERIDOL LACTATE 5 MG/ML VIAL 2.5 MG IV PUSH (23:02)
[2024-07-05] MEDS: diphenhydrAMINE HCl INJ 50 MG/ML VIAL 25 MG IV PUSH (23:02)
[2024-07-05 23:26] LABS: Bilirubin Indirect 1.2 mg/dL (0-1.1)
[2024-07-05] MEDS: LACTATED RINGERS 1,000 ML 999 ML IV CONT (23:36)
[2024-07-05 23:37] VITALS: BP 110/66; PULSE 68; RESP 15; O2SAT 98
[2024-07-06] MEDS: SODIUM CHLORIDE 0.9% IV 1,000 ML 999 ML IV CONT (01:21)
[2024-07-06 01:30] LABS: Add Urine Microscopic? YES; Appearance Urine Clear (Clear); Bacteria Urine None Seen /hpf; Bilirubin Urine Negative (Negative); Blood Urine Negative (Negative); Color Urine Dark Yellow (Yellow); Glucose Urine UA Negative (Negative); Ketones Urine 2+ mg/dL (Negative); Leukocyte Esterase Ur Negative LEU/UL (Negative); Nitrate Urine Negative (Negative); Non Pathogenic Casts 0-2; Protein Urine Trace mg/dL (Negative); RBC Urine 0-2 /hpf (0-2); Specific Grav Ur 1.019 (1.001-1.035); Squamous Epithelial Cell Urine None Seen /hpf (Few); WBC Urine 0-5 /hpf (0-3); pH Urine 6.5 (5.0-9.0)
[2024-07-06] MEDS: HALOPERIDOL LACTATE 5 MG/ML VIAL 2.5 MG IV PUSH (02:15)
[2024-07-06] MEDS: diphenhydrAMINE HCl INJ 50 MG/ML VIAL 25 MG IV PUSH (02:16)
[2024-07-06 02:18] VITALS: BP 122/70; PULSE 94; RESP 15; O2SAT 97
[2024-07-06 03:16] VITALS: BP 114/62; PULSE 74; RESP 16; O2SAT 100
== END 2024-07-06 03:17 | disposition home or self-care (01) ==
PROVIDERS: Emergency Provider Student in an Organized Health Care Education/Training Program
DX: R11.2 Nausea with vomiting, unspecified (principal); R19.7 Diarrhea, unspecified; R10.84 Generalized abdominal pain; R19.5 Other fecal abnormalities; D72.829 Elevated white blood cell count, unspecified; Z20.822 Contact with and (suspected) exposure to COVID-19
CPT/HCPCS: 36415; 80053; 81001; 82248; 83605; 83690; 83735; 85025; 85610; 85730; 87636; 96361; 96365; 96374; 96375; 99285; J0696; J1200; J1630; J2270; J2405; J2470; J7030; J7120

== ENCOUNTER 2024-12-05 11:51 | Emergency (ER) | payer OTHER, SELFPAY ==
--- NOTE | ~2024-12-05 | CT_ITS ---
EXAMINATION: CT abdomen pelvis w con DATE: 12/05/2024 12:28 INDICATION: Lower abdominal pain TECHNIQUE: Computed tomography (CT) of the abdomen and pelvis was performed with 100 mL Omnipaque-350 intravenous contrast. Automated exposure control and iterative reconstruction technique were employe d. The dose-length product was 571.63 mGy-cm. COMPARISON: 07/04/2024 FINDINGS: Lung bases are clear. Heart size is normal. No pericardial or pleural effusion. Small sliding-type hi atal hernia. Focal hepatic steatosis at the ligamentum teres. Gallbladder, spleen, pancreas, bilatera l adrenal glands and kidneys are normal. There is some fluid in the distal colon consistent with nons pecific diarrhea. Small bowel and appendix are normal. Bladder is normal. No free intraperitoneal gas or fluid. No pathologically enlarged abdominal or pelvic lymphadenopathy. Mild bilateral hip osteoar thritis. IMPRESSION: 1. Small amount of fluid in the distal colon consistent with nonspecific diarrhea. No other acute int ra-abdominal/pelvic process. Reviewed, dictated and finalized at location A. IMPRESSION: 1. Small amount of fluid in the distal colon consistent with nonspecific diarrh ea. No other acute intra-abdominal/pelvic process.
--- OUTSIDE RECORDS SUMMARY | 2024-12-05 11:54 | XMS_ITS | Clinical Summary ---
Author Organization [facility] Address [address] [place] [address] Care Team Providers Care Engagement Lead Name Role Phone Unknown, Notinfile Primary Care Provider Unavail able Allergies No known active allergies Medications pantoprazole DR (PROTONIX) 40 mg EC tablet Take 1 tablet (40 mg total) by mouth 2 (two) times a day 120 tablet 5 Active ondansetron ODT (ZOFRAN-ODT) 4 mg disintegrating tablet Dissolve 1 tablet oral every 4 hours as needed for nausea or vomiting. 20 tablet [address] (PROTONIX) 40 mg EC tablet Take 1 tablet (40 mg total) by mouth daily 30 tablet 11 5 10/02/19 26 Active Active Problems Problem Noted Date Diagnosed Date Esophagitis 08/21/2024 Acute gastritis with hemorrhage, unspecified gas tritis type 07/08/2024 Assessment & Plan (07/09/2024 2:45 PM CDT): Reports coffee-ground emesis associated with the abdominal pain - GI following, s/p endoscopy 07/09 - LA Grade C erosive esophagitis, 2 cm hiatal hernia - Stomach and duodenal mucosa biopsied - Needs to be on pantoprazole 40 BID on discharge - Repeat EGD in 8-10 weeks - Avoid NSAIDs - Continue CLD --> ADAT - Trend hemoglobin currently at 15.9 - Continue PPI IV BID Gilbert's syndrome 07/08/2024 Assessment & Plan (07/09/2024 2:42 PM CDT): Unconjugated hyperbilirubinemia in the setting of stress. - CT abdomen was unremarkable - Continue monitor Cyclic vomiting syndrome 08/13/2017 Assessment & Plan [...] Nausea and vomiting 08/12/2017 Assessment & Plan (07/09/2024 3:33 PM CDT): Prior history of cyclic vomiting syndrome in the setting of marijuana. Patient reports not smoking marijuana in months. Admitted with vague abdominal pain, non radiating, squeezing in nature, and inability to take PO. - Exam with mild tender, diffuse - CT scan without any acute intra abdominal mineral abnormalities - Lipase unremarkable - Zofran PRN, continue mIVF, check UDS, ADAT - Requesting diet after procedure Assessment & Plan (08/13/2017 4:18 PM CDT): [...] days ago. Acute bronchitis 05/17/2017 Fever 05/17/2017 Encounters Date Type Department Care Team Description 10/29/2024 Telephone [facility] Gastroenterolog y [address] [facility] 12th [place] [address] [place] [address] Amber Willow, [facility] 10/16/2024 Telephone [facility] Gastroenterolog [facility] [address] [facility] 12th [place] [address] [place] [address] Amber Willow, [facility] 10/15/2024 Results Follow-Up [facility] Gastroenterolog [facility] [address] [place] [address] [place] [address] Master Cadet MD Surgical pathology 10/01/2024 2:30 PM CDT - 10/01/2024 3:00 PM CDT Surgery [facility] [place] [address] [address] Master Cadet MD ESOPHAGOGASTRODUODENOSCOPY BIOPSY 10/01/2024 2:27 PM CDT Anesthesia Event [facility] [place] [address] [facility] [address] [place] [address] Vitaly Mancini MD 10/01/2024 12:11 PM CDT - 10/01/2024 3:43 PM CDT Hospital Encounter [facility] [address] [address] Master Cadet MD Esophagitis Discharge Disposition: Discharge to home or self care 09/24/2024 Telephone [facility] Specialty Services [address] [place] [address] Karla Franks RN GI PROCEDURE 7 DAY PRE CALL from Last 3 Months Surgical History Surgery Date Site/Laterality Comments COLONOSCOPY UPPER GASTROINTESTINAL ENDOSCOPY Medical History Medical History Date Comments Marijuana abuse Cyclical vomiting Social History Tobacco Use Types Packs/Day Years Used Date Smoking Tobacco: Former Smokeless Tobacco: Never Alcohol Use Standard Drinks/Week Comments No 0 (1 standard drink = 0.6 oz pur e alcohol) AUDIT-C Answer Date Recorded Q1: How often do you have a drink containing alcohol? Never 10/01/2024 Q2: How many drinks containi ng alcohol do you have on a typical day when you are drinking? Patient does not drink Q3: How often do you have si x or more drinks on one occasion? Never 10/01/2024 Personal Safety Answer Date Recorded Have you ever been in or are you currently in a harmful physical or emotional relationship or is someone making you feel afraid or unsafe? 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 Gender Identity Not on file Sexual Orientation Not on file Obstetrics History Last Filed Vital Signs Vital Sign Reading Time Taken Comments Blood Pressure 120/76 10/01/2024 3:23 PM CDT Pulse 56 10/01/2024 3:23 PM CDT Temperature 36.6 C (97.9 F) 10/01/2024 3:03 PM CDT Respiratory Rate 13 10/01/2024 3:23 PM CDT Oxygen Saturation 98% 10/01/2024 3:23 PM CDT Inhaled Oxygen Concentration - - Weight 97.5 kg (215 lb) 10/01/2024 2:14 PM CDT Height 195.6 cm (6' 5) 10/01/2024 2:14 PM CDT Body Mass Index 25.5 10/01/2024 2:14 PM CDT Plan of Treatment Health Maintenance Due Date Last Done Comments Depression Screening 1994 DTaP/Tdap/Td Vaccine (6 - Tdap) 2005 01/15/2000, 06/29/1996, 03/15/1995, Additional history exists Varicella Vaccines (1 of 2 - 13+ 2-dose series) 08/31/2007 Regular Well Visit/Exam 18-64 2012 HPV Vaccines (1 - 3-dose SCDM series) 2021 Influenza Vaccine (#1) 2024 02/21/2015 Hepatitis B Screening Completed 05/24/1995 , 1994, 1994 Hepatitis C Screening Completed 11/13/2014 Pneumococcal vaccine <65 Aged Out No longer eligible based on patient's age to complete this topic Procedures Procedure Name Priority Date/Time Associated Diagnosis Comments SURGICAL PATHOLOGY Routine 10/01/2024 2:46 PM CDT Esophagitis ESOPHAGOGASTRODUODENOSCOPY BIOPSY 10/01/2024 2:25 PM CDT Esophagitis EGD 10/01/2024 2:07 PM CDT SERUM HEPATITIS PANEL Routine 11/13/2014 9:12 PM CDT from Last 3 Months or Most Recently Relevant to Health Maintenance Results * Surgical pathology (10/01/2024 2:46 PM CDT) Tissue (Esophageal biopsy) 10/01/2024 2:46 PM CDT Tissue specimen (specimen) (Esophageal biopsy) 10/01/2024 2:52 PM CDT Narrative PATHOLOGY [facility] - 10/05/2024 12:55 PM CDT EPIC results best viewed via link to PDF [facility] [place] [address] Note to Patients: This report may contain a detailed description of human tissue sent by a health care provider to the laboratory for pathologic evaluation. The content of this report is essential for diagnosis and may provide important critical findings. This information may be unfamiliar to patients to review without a medical professional present. It is advised that the patient review this report in the presence of a health care provider who can answer questions and explain the details. SURGICAL PATHOLOGY REPORT FINAL Patient Name: STEVIE POLANCO Gender: M : 1995 (Age: 29) Address: [address] [place] [address] Hospital #: [id number] Taken:10/01/2024 Received:10/01/2024 Reported: 10/05/2024 Patient Type: [facility] Service: Gastro Location: Physician(s): Master Cadet M.D. Diagnosis: A. Esophagus at 43 cm, biopsy - Squamocolumnar mucosa with reactive epithelial changes. - No intestinal metaplasia identified. B. Esophagus at 41 cm, biopsy - Squamocolumnar mucosa with reactive epithelial changes. - No intestinal metaplasia identified. adbo/10/05/2024 12:55 By this signature, I attest that the above diagnosis is based upon my personal examination of the slides(and/or other material indicated in the diagnosis). Kurtis Danielle M.D. Report Electronically Reviewed and Signed Out By Kurtis Danilele M.D. 10/05/2024 12:55:38 History: The patient is a 29-year-old man presenting with esophagitis. Operative procedure: Upper endoscopy with biopsy. Specimen(s) Received: A: Esophageal biopsies at 43cm B: Esophageal biopsies Gross Description: Received in two formalin jars labeled with the patient's identifiers. A. Labeled esophagus 43 cm and consists of multiple white and pink fragment(s) of soft tissue measuring 1.0 x 0.6 x 0.2 cm in aggregate. Labeled A1. Jar 0. B. Labeled esophagus 41 cm and consists of two pink-cruz fragment(s) of soft tissue measuring 0.3 and 0.4 cm each in greatest dimension. Labeled B1. Jar 0. sxst/10/01/2024 17:40 PA(s): Kamla Weir By this signature, I attest that the above diagnosis is based upon my personal examination of the slides(and/or other material). Addenda/Procedures The performance characteristics of some immunohistochemical stains, fluorescence in-situ hybridization tests and immunophenotyping by flow cytometry cited in this report (if any) were determined by the Surgical Pathology and Flow Cytometry Departments at [facility] as part of an ongoing quality system manager program and in compliance with federally mandated regulations drawn from the Clinical Laboratory Improvement Act of 1988 (CLIA '88). Some of these tests rely on the use of analyte specific reagents and are subject to specific labeling requirements by the US Food and Drug Administration. Such diagnostic tests may only be performed in a facility that is certified by the Department of Health and Human Services as a high complexity laboratory under CLIA '88. The FDA has determined that such clearance or approval is not necessary. This test is used for clinical purposes. It should not be regarded as investigational or for research. Nevertheless, federal rules concerning the medical use of analyte specific reagents require that the following disclaimer be attached to the report: This test was developed and its performance characteristics determined by the Surgical Pathology and Flow Cytometry Departments of [facility]. It has not been cleared or approved by the U. S. Food and Drug Administration. IMAGES AND SCANNED DOCUMENTS, IF INCLUDED, ONLY VIEWABLE IN PDF VERSION OF REPORT us Master Cadet MD LAB PATHOLOGY ORDERABLES Fouzia l Result PATHOLOGY [facility] 3rd Floor [place], [place] [phone] * EGD (10/01/2024 2:07 PM CDT) Anatomical Region Laterality Modality Other Narrative Procedure Note Master Cadet MD - 10/01/2024 2:07 PM CDT GI ENDOSCOPY [facility] Patient Name: Stevie Polanco Procedure Date: 10/01/2024 2:07 PM Date of : 1995 Admit Type: Outpatient Age: 29 Gender: Male Attending MD: Master Cadet M.D. Room: [facility] ENDOSCOPY ROOM 8 Note Status: Finalized Procedure: Upper GI endoscopy Indications: Follow-up of esophagitis Referring MD: Hugh West Providers: Master Cadet M.D. Medicines: Monitored Anesthesia Care Complications: No immediate complications. Estimated Blood Loss: Estimated blood loss: none. Procedure: The benefits, risks, and alternatives to theprocedure and sedation were discussed and informed consentwas obtained. The scope was passed under direct vision. The GIF [id number] endoscope was introducedthrough the mouth, and advanced to the second part of duodenum. The upper GI endoscopy was accomplished without difficulty. The patient tolerated the procedure well. Findings: Multiple tongues of salmon-colored mucosa were present from 43 to 44cm and islands of salmon-colored mucosa were present at 41 cm. Mucosawas biopsied with a cold forceps for histology. A small hiatal hernia was present. The stomach was otherwise normal. The examined duodenum was normal. Impression: - Previously seen esophagitis had healed. - Ivanhoe-colored mucosa. Biopsied. - Small hiatal hernia. Otherwise normal stomach. - Normal examined duodenum. Recommendation: - Await pathology results. Attending Participation: I personally performed the entire procedure. Electronically signed by Master Cadet MD Master Cadet M.D. 10/01/2024 3:08:03 PM . Number of Addenda: 0 Note Initiated On: 10/01/2024 2:07 PM us Master Cadet MD ENDOSCOPY PROCEDURES Final Re sult * Serum Hepatitis panel (11/13/2014 9:12 PM CDT) HAV ab, IgM Negative Negative HISTORIC AL RESULTS HBV core ab, IgM Negative Negative HISTORICAL RESULTS HBV surface ag Negative Negative HISTO RICAL RESULTS Comment:Test performed at [facility], [id number] [place] [address], [place]., [address] HCV ab Negative Negative HISTORICAL RESULTS Serum 11/13/2014 9:12 PM CDT us Nereida Egan MD LAB BLOOD ORDERABLES Final Re sult HISTORICAL RESULTS from Last 3 Months or Most Recently Relevant to Health Maintenance Insurance [facility] AETNA BETTER [facility] AETNA BETTER [facility] Member Subscriber Plan / Payer (Ef fective 2024-Present) Name:Stevie Polanco Relation to Subscriber:Self Name:Stevie Polanco Payer ID:[id number] (NAIC) Group ID:Not on file Type:MEDICAID RISK OTHER Address: [facility] [id number] [place] [id number] Advance Directives For more information, please contact: [phone] * Full Code (Latest Code Status on File) Date Activated Date Inactivated Comments 10/01/2024 2:07 PM 10/01/2024 7:48 PM * Full Code Date Activated Date Inactivated Comments 07/08/2024 12:46 PM 07/09/2024 9:34 PM * Full Code Date Activated Date Inactivated Comments 08/11/2017 11:24 PM 08/15/2017 3:05 PM Care Teams Engagement Lead Relationship Specialty Start Date End Date Unknown, Notinfile PCP - General 07/08/24
--- OUTSIDE RECORDS SUMMARY | 2024-12-05 11:54 | XMS_ITS | Encounter Summary ---
Author Organization [facility] Address [address] [place] [address] Phone Care Team Providers Care Aluminum Can Collector Name Role Phone Unknown, Notinfile Primary Care Provider Unavail able Encounter Details Date Type Department Care Team (Late st Contact Info) Description 10/15/2024 Results Follow-Up [facility] Gastroenterology [address] [facility] 12th [place] [address] [place] [address] Master Cadet MD [address] [place] [address] Surgical pathology Social History Tobacco Use Types Packs/Day Years [...] on file 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
--- OUTSIDE RECORDS SUMMARY | 2024-12-05 11:54 | XMS_ITS | Clinical Summary ---
Author Organization 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 Gender Identity Not on file Sexual Orientation Not on file Last Filed Vital Signs Vital Sign Reading Time Taken Comments Blood Pressure 143/87 06/09/2022 3:14 PM NIB INSPECTOR Pulse 82 06/09/2022 3:14 PM NIB INSPECTOR Temperature 36.8 C (98.2 F) 06/09/2022 1:41 PM NIB INSPECTOR Respiratory Rate 22 06/09/2022 3:14 PM NIB INSPECTOR Oxygen Saturation 99% 06/09/2022 3:14 PM NIB INSPECTOR Inhaled Oxygen Concentration - - Weight 91.4 kg (201 lb 8 oz) 06/09/2022 1:41 PM NIB INSPECTOR Height 195.6 cm (6' 5) 06/09/2022 1:41 PM NIB INSPECTOR Body Mass Index 23.89 06/09/2022 1:41 PM NIB INSPECTOR Plan of Treatment Health Maintenance Due Date Last Done Comments Annual Physical 1997 DTaP, Tdap and Td Vaccines (6 - Tdap) 2005 01/15/2000, 06/29/1996, 03/15/1995, Additional history exists Hepatitis C 2012 HPV Vaccines (1 - 3-dose SCDM series) 2021 COVID-19 Vaccine ( - 2023- season) 2023 Hepatitis B Vaccines Completed 05/24/1995, 1994, 1995 Meningococcal B Vaccine Aged Out No l onger eligible based on patient's age to complete this topic Meningococcal Vaccine Aged Out No alfredo barber eligible based on patient's age to complete this topic Pneumococcal Vaccine: Pediatrics (0 to 5 Years) and At-Risk Patients (6 to 49 Years) Aged Out No longer eligible based on patient's age to complete this topic RSV Immunizations Under 20 Months Aged Out No longer eligible based on patient's age to complete this topic Insurance Care Teams Power Ballast Machine Operator Relationship Specialty Start Date End Date None, Provider, MD PCP - General UNKNOWN PHYSICIAN SPECIALTY 05/22/22
--- OUTSIDE RECORDS SUMMARY | 2024-12-05 11:54 | XMS_ITS | Continuity of Care Document ---
Author Organization [facility] Address [address] [place] [address] [place] [address] Phone Care Team Providers Care Ticket Dispenser Changer Name Role Phone Mal Olivas MD Unavailable [...] Diagnoses Date Provider Providers Copied on Encounter [facility], [address] [place], [place], [id number], tel:[phone] [facility] No Information Brendon Resendez. [address], [facility] [place], [id number], [place]. tel:[phone] Referring Provider: Mal Olivas, [address] [facility] [place], [id number]. tel:[phone] OFFICE/OUTPAT IENT VISIT, EST [facility], [address] [employer] [place], [id number], tel:[phone] [facility] abdominal pain (chief complaint)a bd pain (chief complaint) Acute gastric ulcer without hemorrhage or perforation Brendon Resendez. [address], [address] [place], [address], . tel:[phone] Referring Provider: Mal Olivas, [address], [place], [place], [address]. tel:[phone] PREV VISIT, NEW, AGE 18-39 [facility], [address], [place], [place], [id number], [place] tel:[phone] [facility] Medicine Physical (chief complaint) Routine medical exam Brendon Resendez. [address], [address], [place], [place], [address], [place]. tel:[phone] Referring Provider: Mal Olivas, [address], [place], [place], [address]. tel:[phone] Family History Family Member Type Diagnosis Age At Onset Sister Problem (finding) Alive and well Father Problem (finding) Alcoholism Mother Problem (finding) breast [place] Payers Payer name Insurance type Covered democrat ID Authoriza tion(s) No Information Social History [...]
[2024-12-05 11:58] VITALS: PULSE 88; RESP 13; O2SAT 99
[2024-12-05] MEDS: SODIUM CHLORIDE 0.9% IV 1,000 ML 999 ML IV CONT ×2 (12:02→12:53)
[2024-12-05] MEDS: ONDANSETRON INJ 4 MG/2 ML VIAL IV PUSH (12:02)
[2024-12-05 12:06] VITALS: BP 167/83; PULSE 97; RESP 16; O2SAT 98
[2024-12-05 12:17] LABS: Hematocrit 47.0 % (42.0-52.0); Hemoglobin 16.6 g/dL (14.0-18.0); Immature Granulocyte Percent A 0.5 % (0-0.5); Lymphocytes Absolute Auto 3.82 K/mm3 (0.9-3.2); Mean Corpuscular HGB Conc 35.3 g/dl (32-36); Mean Corpuscular Hemoglobin 30.0 pg (26-34); Mean Corpuscular Volume 85.0 fl (80-100); Nucleated Red Blood Cells Absolute Auto 0.000 K/mm3 (0.0-0.012); Nucleated Red Blood Cells Perc 0.0 % (0.0-0.2); Platelet Count Result 391 k/mm3 (150-375); Red Blood Count 5.53 M/mm3 (4.6-6.20); White Blood Count 11.8 K/mm3 (4.5-10.0)
[2024-12-05 12:17] LABS: Estimated CRCL calculation 101 ml/min; Estimated Glomerular Filt Rate > 60
--- OUTSIDE RECORDS SUMMARY | 2024-12-05 12:26 | XMS_ITS | Clinical Summary ---
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 Gender Identity Not on file Sexual Orientation Not on file Last Filed Vital Signs Vital Sign Reading Time Taken Comments Blood Pressure 143/87 06/09/2022 3:14 PM ASSOCIATE FINANCIAL PLANNER Pulse 82 06/09/2022 3:14 PM ASSOCIATE FINANCIAL PLANNER Temperature 36.8 C (98.2 F) 06/09/2022 1:41 PM ASSOCIATE FINANCIAL PLANNER Respiratory Rate 22 06/09/2022 3:14 PM ASSOCIATE FINANCIAL PLANNER Oxygen Saturation 99% 06/09/2022 3:14 PM ASSOCIATE FINANCIAL PLANNER Inhaled Oxygen Concentration - - Weight 91.4 kg (201 lb 8 oz) 06/09/2022 1:41 PM ASSOCIATE FINANCIAL PLANNER Height 195.6 cm (6' 5) 06/09/2022 1:41 PM ASSOCIATE FINANCIAL PLANNER Body Mass Index 23.89 06/09/2022 1:41 PM ASSOCIATE FINANCIAL PLANNER Plan of Treatment Health Maintenance Due [...] to complete this topic Insurance Care Teams Overlock Elastic Attacher Relationship Specialty Start Date End Date None, Provider, MD PCP - General UNKNOWN PHYSICIAN SPECIALTY 05/22/22
--- OUTSIDE RECORDS SUMMARY | 2024-12-05 12:26 | XMS_ITS | Continuity of Care Document ---
Author Organization [facility] Address [address] [place] [address] [place] [address] Phone Care Team Providers Care Automotive Glass Installer Name Role Phone Mal Olivas MD Unavailable [...] Diagnoses Date Provider Providers Copied on Encounter [facility], [address] [place], [place], [id number], tel:[phone] [facility] No Information Brendon Resendez. [address], [facility] [place], [place], [id number], [place]. tel:[phone] Referring Provider: Mal Olivas, [address] [facility] [place], [id number]. tel:[phone] OFFICE/OUTPAT IENT VISIT, EST [facility], [address] [employer] [place], [id number], tel:[phone] [facility] abdominal pain (chief complaint)a bd pain (chief complaint) Acute gastric ulcer without hemorrhage or perforation Brendon Resendez. [address], [address], [address], . tel:[phone] Referring Provider: Mal Olivas, [address], [place], [place], [address]. tel:[phone] PREV VISIT, NEW, AGE 18-39 [facility], [address], [place], [place], [address], [place] tel:[phone] [facility] Medicine Physical (chief complaint) Routine medical exam Brendon Resendez. [address], [address], [place], [place], [address], [place]. tel:[phone] Referring Provider: Mal Olivas, [address], [place], [place], [address]. tel:[phone] Family History Family Member Type Diagnosis Age At Onset Sister Problem (finding) Alive and well Father Problem (finding) Alcoholism Mother Problem (finding) breast [place] Payers Payer name Insurance type Covered green party ID Authoriza tion(s) No Information Social [...]
--- OUTSIDE RECORDS SUMMARY | 2024-12-05 12:26 | XMS_ITS | Clinical Summary ---
Author Organization [facility] Address [address] [place] [address] Care Team Providers Care Wood Tile Installation Helper Name Role Phone Unknown, Notinfile Primary Care [...] Type Department Care Team Description 10/29/2024 Telephone [facility] [address] [place] [address] [place] [address] Amber Willow, [facility] 10/16/2024 Telephone [facility] [address] [place] [address] [place] [address] Amber Willow, [facility] 10/15/2024 Results Follow-Up [facility] [address] [place] [address] [place] [address] Master Cadet MD Surgical pathology 10/01/2024 2:30 PM CDT - 10/01/2024 3:00 PM CDT Surgery [facility] [place] [address] [address] Master Cadet MD ESOPHAGOGASTRODUODENOSCOPY BIOPSY 10/01/2024 2:27 PM CDT Anesthesia Event [facility] [place] [address] [facility] [address] [place] [address] Vitaly Mancini MD 10/01/2024 12:11 PM CDT - 10/01/2024 3:43 PM CDT Hospital Encounter [facility] [address] [address] Master Cadet MD Esophagitis Discharge Disposition: Discharge to home or self care 09/24/2024 Telephone [facility] Specialty Services [address] [place] [phone] Karla Franks RN GI PROCEDURE 7 DAY [...] on file 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 [...] Electronically Reviewed and Signed Out By Kurtis Danielle M.D. 10/05/2024 12:55:38 History: The patient is [...] Surgical Pathology and Flow Cytometry Departments at [facility] as part of an ongoing training and quality manager program and in compliance with federally [...] Surgical Pathology and Flow Cytometry Departments of [facility]. It has not been cleared or approved by the U. S. Food and Drug Administration. IMAGES AND SCANNED DOCUMENTS, IF INCLUDED, ONLY VIEWABLE IN PDF VERSION OF REPORT us Master Cadet MD LAB PATHOLOGY ORDERABLES Fouzia l Result PATHOLOGY [facility] 3rd Floor [place], [place] [phone] * EGD (10/01/2024 2:07 PM CDT) Anatomical Region Laterality Modality Other Narrative Procedure Note Master Cadet MD - 10/01/2024 2:07 PM CDT GI ENDOSCOPY [facility] Patient Name: Stevie Polanco Procedure Date: 10/01/2024 2:07 PM Date of : 1995 Admit Type: Outpatient Age: 29 Gender: Male Attending MD: Master Cadet M.D. Room: [facility] ENDOSCOPY ROOM 8 Note Status: Finalized Procedure: Upper GI endoscopy Indications: Follow-up of esophagitis Referring MD: Hugh West Providers: Master Cadet M.D. Medicines: Monitored Anesthesia Care Complications: No immediate complications. Estimated Blood Loss: Estimated blood loss: none. Procedure: The benefits, risks, and alternatives to theprocedure and sedation were discussed and informed consentwas obtained. The scope was passed under direct vision. The GIF [id number] endoscope was introducedthrough the mouth, and advanced [...] - Previously seen esophagitis had healed. - [place]-colored mucosa. Biopsied. - Small hiatal hernia. Otherwise [...] Negative HISTO RICAL RESULTS Comment:Test performed at [facility], [id number] [place] [address], [place]., [address] HCV ab Negative Negative HISTORICAL RESULTS Serum 11/13/2014 9:12 PM CDT us Nereida Egan MD LAB BLOOD ORDERABLES Final Re sult HISTORICAL RESULTS from Last 3 Months or Most Recently Relevant to Health Maintenance Insurance [facility] AETNA [facility] [employer]ETNA [facility] Member Subscriber Plan / Payer (Ef fective 2024-Present) Name:Stevie Polanco Relation to Subscriber:Self Name:Stevie Polanco Payer ID:[id number] (NAIC) Group ID:Not on file Type:MEDICAID RISK OTHER Address: [facility] [id number] [place] [id number] Advance Directives For more information, please contact: [phone] * Full Code (Latest Code Status on File) Date Activated Date Inactivated Comments 10/01/2024 2:07 PM 10/01/2024 7:48 PM * Full Code Date Activated Date Inactivated Comments 07/08/2024 12:46 PM 07/09/2024 9:34 PM * Full Code Date Activated Date Inactivated Comments 08/11/2017 11:24 PM 08/15/2017 3:05 PM Care Teams Wood Tile Installation Helper Relationship Specialty Start Date End Date Unknown, Notinfile PCP - General 07/08/24
--- OUTSIDE RECORDS SUMMARY | 2024-12-05 12:26 | XMS_ITS | Encounter Summary ---
Author Organization [facility] Address [address] [place] [address] Phone Care Team Providers Care Car Blocker Name Role Phone Unknown, Notinfile Primary Care Provider Unavail able Encounter Details Date Type Department Care Team (Late st Contact Info) Description 10/15/2024 Results Follow-Up [facility] Gastroenterology [address] [facility] [address]th [place] [address] [place] [address] Master Cadet MD [address] [place] [address] Surgical pathology Social History Tobacco Use Types [...] on file 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
[2024-12-05 12:35] LABS: Alanine Aminotransferase 58 U/L (6-50); Albumin Level 4.9 g/dL (3.5-5.1); Alkaline Phosphatase 86 U/L (38-126); Anion Gap 18 mmol/L (4-12); Aspartate Amino Transferase 50 U/L (17-59); Bilirubin,Total 2.7 mg/dL (0.2-1.3); Blood Urea Nitrogen 16 mg/dL (9-20); Calcium 10.3 mg/dL (8.4-10.2); Carbon Dioxide 16 mmol/L (22-30); Chloride 102 mmol/L (98-107); Estimated CRCL calculation 110 ml/min; Estimated Glomerular Filt Rate > 60; Glucose 147 mg/dL (65-110); Lipase 137 U/L (23-300); Potassium 3.3 mmol/L (3.4-5.0); Sodium 136 mmol/L (137-145); Total Protein 8.5 g/dL (6.3-8.2)
[2024-12-05 12:43] VITALS: PULSE 66; O2SAT 97
[2024-12-05 12:45] VITALS: PULSE 99; RESP 19; O2SAT 99
[2024-12-05] MEDS: PROCHLORPERAZINE EDISYLATE 10 MG/2 ML VIAL 5 MG IV PUSH ×2 (12:49→12:50)
[2024-12-05] MEDS: MORPHINE SULFATE (*CRX) 4 MG/ML INJ IV PUSH (12:53)
[2024-12-05] MEDS: KETOROLAC 30 MG/ML VIAL (*BKC) IV PUSH (13:06)
[2024-12-05 13:41] VITALS: BP 131/79; PULSE 82; RESP 15; O2SAT 93
[2024-12-05 14:01] LABS: Add Urine Microscopic? NO; Appearance Urine Clear (Clear); Glucose Urine UA Negative (Negative); Leukocyte Esterase Ur Negative LEU/UL (Negative); Nitrate Urine Negative (Negative); Specific Grav Ur 1.043 (1.001-1.035)
--- NOTE | 2024-12-05 15:53 | ED_ITS ---
HPI - Nausea/Vomiting/Diarrhea General Chief complaint: Nausea/Vomiting/Diarrhea Stated complaint: abdominal pain, vomiting Time Seen by Provider: 12/05/24 11:54 Source: patient and family Mode of arrival: ambulatory Limitations: no limitations History of Present Illness HPI Narrative: 29-year-old otherwise healthy here with a complains of lower abdominal pain associated with nausea vomiting for past 3 days. He tried home remedies no relief. Denies any fever or chills. MD elicited complaint: nausea, vomiting and abdominal pain Related Data Allergies Allergy/AdvReac Type Severity Reaction Status Date / Time No Known Allergies Allergy Verified 12/05/24 11:51 Review of Systems 2 Review of Systems: All systems reviewed & are unremarkable except as noted in HPI and below Constitutional: Constitutional: Reports no additional constitutional complaints Eyes: Eyes: Reports no additional eye complaints ENT: Reports system reviewed and no additional complaints, except as documented Cardiovascular: Cardiovascular: Reports no additional cardiovascular complaints Respiratory: Respiratory: Reports no additional respiratory complaints Gastrointestinal: Gastrointestinal: Reports as per HPI Musculoskeletal: Musculoskeletal: Reports no additional musculoskeletal complaints Neurologic: Reports system reviewed and no additional complaints, except as documented PMFSH Past Medical History Medical History (Updated 12/05/24 @ 15:54 by Toy Sinclair MD) Allergic rhinitis, cause unspecified Colitis Bronchitis Surgical History Surgical History History of colonoscopy History of esophagogastroduodenoscopy (EGD) Family History Family History Mother Cancer Father Liver failure Social History Social History Smoking status: Never smoker Alcohol intake: former Substance use type: marijuana Last use: Apr 2024 Do You Feel Safe in your Home?: Yes Lack of Transportation: No Lack of Food: Never True Current Housing: I Have Housing Concerned About Future Housing: No Difficulty Paying Gas/Electric Bills: No Difficulty Paying for Meds: No Currently Unemployed: No Education: High School Diploma/GED Difficulty w/ Childcare or Family Care: No Living arrangements: with family Additional living arrangements comments: Lives with his girlfriend and son though possibly in a hotel? Spiritual care concerns: No Exam 2 Narrative: GENERAL: Well-appearing, well-nourished, and in moderate distress secondary to nausea mild HEAD: Normocephalic, atraumatic. EYES: PERRLA and EOMI. ENT: Nares clear, no rhinorrhea or epistaxis. Mucous membranes moist. NECK: Supple. CHEST: Clear to auscultation. No respiratory distress. HEART: Regular rate and rhythm. No murmur heard. Normal peripheral pulses. ABDOMEN: Soft, mild tenderness in the lower abd, nondistended, normal active bowel sounds. EXTREMITIES: Normal range of motion. No edema. SKIN: Warm, dry, no rash. NEURO: No focal deficits. Alert and oriented x3. PSYCH: Normal mood and affect. Course Course Emergency Course: Patient was given IV fluids, Compazine Zofran and CT and lab work will be with her all unremarkable his initial lactate was 5.6 after 2 L of hydration it is 1.6. The patient stated that he is feeling better I did give him a glass of water with ice chips he was able to keep it down he states that he can manage at home. Vital Signs Vital signs: Vital Signs Pulse Rate 88 12/05/24 11:58 Respiratory Rate 13 12/05/24 11:58 Pulse Oximetry 99 12/05/24 11:58 Oxygen Delivery Room Air 12/05/24 11:58 Pulse Rate 82 12/05/24 13:41 Respiratory Rate 15 12/05/24 13:41 Blood Pressure 131/79 12/05/24 13:41 Pulse Oximetry 93 12/05/24 13:41 Oxygen Delivery Room Air 12/05/24 11:58 MDM - Nausea/Vomiting/Diarrhea Differential Diagnosis Differential diagnosis: Likely gastroenteritis and dehydration Medical Records Attestation: I reviewed the patient's medical records. Lab Data Attestation: I reviewed the patient's lab results. 12/05/24 12:09 12/05/24 12:15 Labs: Lab Results 12/05/24 12/05/24 12/05/24 Range/Units 12:09 12:15 13:55 WBC 11.8 H (4.5-10.0) K/mm3 RBC 5.53 (4.6-6.20) M/mm3 Hgb 16.6 (14.0-18.0) g/dL Hct 47.0 (42.0-52.0) % MCV 85.0 (80-100) fl MCH 30.0 (26-34) pg MCHC 35.3 (32-36) g/dl RDW 12.2 (11.5-14.5) % Plt Count 391 H (150-375) k/mm3 MPV 10.6 H (7.4-10.4) fl Immature Gran % (Auto) 0.5 (0-0.5) % Neut % (Auto) 58.4 (45.5-73.1) % Lymph % (Auto) 32.3 (18.3-44.2) % [place] % (Auto) 7.3 (2.6-8.5) % Eos % (Auto) 0.7 (0-4.4) % Baso % (Auto) 0.8 (0.2-1.2) % Lymph # (Auto) 3.82 H (0.9-3.2) K/mm3 [place] # (Auto) 0.9 H (0.1-0.6) K/mm3 Eos # (Auto) 0.1 (0-0.3) K/mm3 Baso # (Auto) 0.1 (0.0-0.1) K/mm3 Abs Immat Gran (auto) 0.06 H (0.00-0.031) K/mm3 Absolute Neuts (auto) 6.9 H (1.3-6.7) K/mm3 Absolute Nucleated RBC 0.000 (0.0-0.012) K/mm3 Nucleated RBC % 0.0 (0.0-0.2) % Sodium 136 L (137-145) mmol/L Potassium 3.3 L (3.4-5.0) mmol/L Chloride 102 (98-107) mmol/L Carbon Dioxide 16 L (22-30) mmol/L Anion Gap 18 H (4-12) mmol/L BUN 16 (9-20) mg/dL Creatinine 1.10 1.20 (0.7-1.3) mg/dL Estim Creat Clear Calc 110 101 ml/min Estimated GFR > 60 > 60 (59 - ) Glucose 147 H (65-110) mg/dL Lactic Acid 5.9 H* (0.7-2.0) mmol/L Calcium 10.3 H (8.4-10.2) mg/dL Total Bilirubin 2.7 H (0.2-1.3) mg/dL AST 50 (17-59) U/L ALT 58 H (6-50) U/L Alkaline Phosphatase 86 (38-126) U/L Total Protein 8.5 H (6.3-8.2) g/dL Albumin 4.9 (3.5-5.1) g/dL Lipase 137 (23-300) U/L Urine Color Yellow (Yellow) Urine Appearance Clear (Clear) Urine pH 8.0 (5.0-9.0) Ur Specific Jackson 1.043 H (1.001-1.035) Urine Protein Negative (Negative) mg/dL Urine Glucose (UA) Negative (Negative) mg/dL Urine Ketones Trace H (Negative) mg/dL Ur Blood (Man) Negative (Negative) Urine Nitrate Negative (Negative) Urine Bilirubin Negative (Negative) Urine Urobilinogen 1.0 (<2.0) mg/dL Leukocyte Esterase Rfl Negative (Negative) YASMINE/UL /16/25 Range/Units 14:23 WBC (4.5-10.0) K/mm3 RBC (4.6-6.20) M/mm3 Hgb (14.0-18.0) g/dL Hct (42.0-52.0) % MCV (80-100) fl MCH (26-34) pg MCHC (32-36) g/dl RDW (11.5-14.5) % Plt Count (150-375) k/mm3 MPV (7.4-10.4) fl Immature Gran % (Auto) (0-0.5) % Neut % (Auto) (45.5-73.1) % Lymph % (Auto) (18.3-44.2) % [place] % (Auto) (2.6-8.5) % Eos % (Auto) (0-4.4) % Baso % (Auto) (0.2-1.2) % Lymph # (Auto) (0.9-3.2) K/mm3 [place] # (Auto) (0.1-0.6) K/mm3 Eos # (Auto) (0-0.3) K/mm3 Baso # (Auto) (0.0-0.1) K/mm3 Abs Immat Gran (auto) (0.00-0.031) K/mm3 Absolute Neuts (auto) (1.3-6.7) K/mm3 Absolute Nucleated RBC (0.0-0.012) K/mm3 Nucleated RBC % (0.0-0.2) % Sodium (137-145) mmol/L Potassium (3.4-5.0) mmol/L Chloride (98-107) mmol/L Carbon Dioxide (22-30) mmol/L Anion Gap (4-12) mmol/L BUN (9-20) mg/dL Creatinine (0.7-1.3) mg/dL Estim Creat Clear Calc ml/min Estimated GFR (59 - ) Glucose (65-110) mg/dL Lactic Acid 1.5 (0.7-2.0) mmol/L Calcium (8.4-10.2) mg/dL Total Bilirubin (0.2-1.3) mg/dL AST (17-59) U/L ALT (6-50) U/L Alkaline Phosphatase (38-126) U/L Total Protein (6.3-8.2) g/dL Albumin (3.5-5.1) g/dL Lipase (23-300) U/L Urine Color (Yellow) Urine Appearance (Clear) Urine pH (5.0-9.0) Ur Specific Jackson (1.001-1.035) Urine Protein (Negative) mg/dL Urine Glucose (UA) (Negative) mg/dL Urine Ketones (Negative) mg/dL Ur Blood (Man) (Negative) Urine Nitrate (Negative) Urine Bilirubin (Negative) Urine Urobilinogen (<2.0) mg/dL Leukocyte Esterase Rfl (Negative) YASMINE/UL Imaging Data Radiologist's impression: ITS Impressions Abdomen/Pelvis CT 12/05/24 12:46 IMPRESSION: 1. Small amount of fluid in the distal colon consistent with nonspecific diarrhea. No other acute intra-abdominal/pelvic process. Discharge Plan Discharge Clinical Impression: Gastroenteritis, Dehydration Abdominal pain Qualifiers: Abdominal location: generalized Qualified Code(s): R10.84 - Generalized abdominal pain Patient Disposition: Home Condition: Stable Instructions: Acute Nausea and Vomiting (ED), Abdominal Pain (ED) Patient Language: Korean Prescriptions: New dicyclomine 20 mg tablet 20 mg PO QID PRN (Reason: abdominal pain) Qty: 30 0RF ondansetron 4 mg tablet,disintegrating 4 mg PO Q6-8H PRN (Reason: nausea and vomiting) Qty: 14 0RF prochlorperazine maleate [Compazine] 10 mg tablet 10 mg PO Q8H PRN (Reason: nausea and vomiting) Qty: 10 0RF No Action ondansetron 4 mg tablet,disintegrating 4 mg PO Q8H PRN (Reason: nausea and vomiting) Qty: 14 0RF prochlorperazine maleate [Compazine] 10 mg tablet 10 mg PO Q8H PRN (Reason: nausea and vomiting) Qty: 10 0RF prochlorperazine maleate [Compazine] 10 mg tablet 10 mg PO Q8H PRN (Reason: nausea and vomiting) Qty: 10 0RF prochlorperazine maleate [Compazine] 10 mg tablet 10 mg PO Q8H PRN (Reason: nausea and vomiting) Qty: 10 0RF ondansetron 4 mg tablet,disintegrating 4 mg PO Q8H PRN (Reason: nausea and vomiting) Qty: 7 0RF Follow-up/Referrals: PHYSICIAN,CAB WORKER [Primary Care Provider] - Jose Guadalupe Mata MD [Physician] - Time of Disposition: 15:56
== END 2024-12-05 16:15 | disposition home or self-care (01) ==
PROVIDERS: Emergency Provider Family Medicine
DX: K52.9 Noninfective gastroenteritis and colitis, unspecified (principal); E86.0 Dehydration; R10.84 Generalized abdominal pain
CPT/HCPCS: 36415; 74177; 80053; 81003; 83605; 83690; 85025; 96361; 96374; 96375; 96376; 99284; J0780; J1885; J2270; J2405; J7030; Q9967

== ENCOUNTER 2025-04-01 09:47 | Emergency (ER) | payer OTHER, SELFPAY ==
[2025-04-01 10:09] VITALS: BP 134/79; PULSE 64; RESP 18; TEMP 36.8; O2SAT 99
[2025-04-01 11:02] LABS: Strep Group A RT-PCR NOT DETECTED (Negative)
--- NOTE | 2025-04-01 11:07 | ED.DENTAL ---
HPI - Dental/Oral General Chief complaint: Dental/Oral Stated complaint: something going on with my jaw Time Seen by Provider: 04/01/25 10:07 History of Present Illness HPI Narrative: Patient is a 29-year-old male who presents ER with pain to the right jaw lower aspect for last 4 days. Radiating down his throat. Pain with swelling. No fevers or chills. No known sick contacts. No drainage in the mouth. No known trauma to the tooth or jaw. Related Data Allergies Allergy/AdvReac Type Severity Reaction Status Date / Time No Known Allergies Allergy Verified 04/01/25 10:26 Review of Systems Constitutional: Constitutional: Reports no additional constitutional complaints ENT: Reports system reviewed and no additional complaints, except as documented Cardiovascular: Cardiovascular: Reports no additional cardiovascular complaints Respiratory: Respiratory: Reports no additional respiratory complaints [facility] Past Medical History Medical History (Updated 04/01/25 @ 11:13 by Prasad Johnson MD) Allergic rhinitis, cause unspecified Colitis Bronchitis Surgical History Surgical History History of colonoscopy History of esophagogastroduodenoscopy (EGD) Family History Family History Mother Cancer Father Liver failure Social History Social History Smoking status: Never smoker Alcohol intake: former Substance use type: marijuana Last use: Apr 2024 Lack of Transportation: No Lack of Food: Never True Current Housing: I Have Housing Concerned About Future Housing: No Difficulty Paying Gas/Electric Bills: No Difficulty Paying for Meds: No Currently Unemployed: No Education: High School Diploma/GED Difficulty w/ Childcare or Family Care: No Living arrangements: with family Additional living arrangements comments: Lives with his girlfriend and son though possibly in a hotel? Spiritual care concerns: No Exam Narrative: GENERAL: Well-appearing, well-nourished, and in no acute distress. HEAD: Normocephalic, atraumatic. ENT: Mucous membranes moist. No tonsillar hypertrophy or exudate. Uvula midline. Mild discomfort with palpation along the buccal aspect of the gum line of the lower jaw on the right side with point tenderness at tooth number 32. No flexion abscess or drainage. NECK: Supple. CHEST: Clear to auscultation. No respiratory distress. HEART: Regular rate and rhythm. Normal peripheral pulses. EXTREMITIES: Normal range of motion. No edema. NEURO: Alert and oriented x3. PSYCH: Normal mood and affect. Course Vital Signs Vital signs: Vital Signs Temperature 98.3 F 04/01/25 10:09 Pulse Rate 64 04/01/25 10:09 Respiratory Rate 18 04/01/25 10:09 Blood Pressure 134/79 04/01/25 10:09 Pulse Oximetry 99 04/01/25 10:09 Temperature 98.3 F 04/01/25 10:09 Pulse Rate 64 04/01/25 10:09 Respiratory Rate 18 04/01/25 10:09 Blood Pressure 134/79 04/01/25 10:09 Pulse Oximetry 99 04/01/25 10:09 [facility] Differential Diagnosis Differential Diagnosis: Dental abscess, tooth ache, strep throat, MEDICAL RECORD CONSULTANT, retropharyngeal abscess Lab Data [facility] Lab Attestation statement: I personally reviewed the patient's lab results. Labs: Lab Results 04/01/25 Range/Units 10:29 Group A Strep (PCR) Not detected (Negative) Discharge Plan Discharge Clinical Impression: Dentalgia Patient Disposition: Home Condition: Stable Instructions: Toothache (ED) Additional Instructions: It is felt that you have a dental infection so you will be started on antibiotics. Return to the ER if you cannot keep down food/water, or you have additional concerns. Patient Language: Kenyan Prescriptions: New hydrocodone-acetaminophen 5-325 mg tablet 1 tablet PO Q6H PRN (Reason: pain) Qty: 12 0RF amoxicillin-pot clavulanate 875-125 mg tablet 1 tablet PO Q12H Qty: 20 0RF No Action ondansetron 4 mg tablet,disintegrating 4 mg PO Q8H PRN (Reason: nausea and vomiting) Qty: 14 0RF prochlorperazine maleate [Compazine] 10 mg tablet 10 mg PO Q8H PRN (Reason: nausea and vomiting) Qty: 10 0RF prochlorperazine maleate [Compazine] 10 mg tablet 10 mg PO Q8H PRN (Reason: nausea and vomiting) Qty: 10 0RF prochlorperazine maleate [Compazine] 10 mg tablet 10 mg PO Q8H PRN (Reason: nausea and vomiting) Qty: 10 0RF ondansetron 4 mg tablet,disintegrating 4 mg PO Q8H PRN (Reason: nausea and vomiting) Qty: 7 0RF dicyclomine 20 mg tablet 20 mg PO QID PRN (Reason: abdominal pain) Qty: 30 0RF ondansetron 4 mg tablet,disintegrating 4 mg PO Q6-8H PRN (Reason: nausea and vomiting) Qty: 14 0RF prochlorperazine maleate [Compazine] 10 mg tablet 10 mg PO Q8H PRN (Reason: nausea and vomiting) Qty: 10 0RF Follow-up/Referrals: Dental Referral Line [Outside] - 1 Week PHYSICIAN,BACK HOE MACHINE OPERATOR [Primary Care Provider, Internal Medicine]
[2025-04-01 11:20] VITALS: BP 102/57; PULSE 60; RESP 14; O2SAT 97
== END 2025-04-01 11:20 | disposition home or self-care (01) ==
PROVIDERS: Emergency Provider Emergency Medicine
DX: K08.89 Other specified disorders of teeth and supporting structures (principal)
CPT/HCPCS: 87651; 99283